=== PATIENT | male | born 1955 | race Hispanic/Latino ===

== ENCOUNTER 2019-05-01 16:20 | Inpatient (IN) | payer MEDICARE ==
[~2019-05-01] VITALS: Ht 177.8 cm; Wt 71.7 kg
--- OUTSIDE RECORDS SUMMARY | 2019-05-01 16:23 | XMS REPORT | Summary of Care ---
Author Author [facility] [place] Address Unknown Phone Unavailable Encounter HQ Encntr_alias(FIN) [id number] Date(s): 02/09/18 - 02/09/18 [facility] [place] [address] [place], [place] [address]- [phone] Discharge Disposition: Home or Self Care Attending Physician: Calderon Dubois MD Vital Signs No data available for this section Problem List No data available for this section Allergies, Adverse Reactions, Alerts No data available for this section Medications No data available for this section Results No data available for this section Immunizations No data available for this section Procedures No data available for this section Social History No data available for this section Assessment and Plan No data available for this section
--- OUTSIDE RECORDS SUMMARY | 2019-05-01 16:23 | XMS REPORT | Clinical Summary ---
Author Author [facility] Address Unknown Phone Unavailable Care Team Providers Care Feather Edger Name Role Phone Vidal Francis MD PCP Allergies Comments Active Allergy Reactions Severity Noted Date Tramadol 08/31/2017 Medications No known medications Active Problems Not on file Encounters Care Team Description Date Type Specialty Brock Dave MD Unilateral primary osteoarthritis, right knee (Primary Dx) 02/14/2019 Transcribe Physical Therapy Orders after 04/30/2018 Social History Date Tobacco Use Types Packs/Day Years Used Former Smoker Smokeless Tobacco: Former User Alcohol Use Drinks/Week oz/Week Comments No Sex Assigned at Date Recorded Not on file Industry Job Start Date Occupation Not on file Not on file Not on file Travel End Travel History Travel Start No recent travel history available. Last Filed Vital Signs Not on file Plan of Treatment Health Maintenance Due Date Last Done Comments COLONOSCOPY SCREENING 2003 SHINGLES VACCINES (#1) 2003 65+ PNEUMOCOCCAL VACCINE 2018 (1 of 2 - PCV13) INFLUENZA VACCINE 04/28/2019 Results Not on fileafter 04/30/2018 Insurance Type Payer Benefit Subscriber ID Effective Phone Address Plan / Dates Group Medicare MEDICARE MEDICARE xxxxxxxxxxx 2017-P [place], PART [place] AND resent [place] B Commercial AARP AARP xxxxxxxxxxx 2018-P SUPPLEMENT resent Advance Directives Patient has advance care planning documents on file. For more information, comfort gutierrez contact: Rigoberto Grijalva [address] [place] [address]
--- OUTSIDE RECORDS SUMMARY | 2019-05-01 16:23 | XMS REPORT | Continuity of Care Document ---
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 Phone [employer] Unavailable Unavailable Problems Problem Status Onset Date Classification Date Reported Comments Source Fracture of unspecified part of neck of left femur, subsequent encounter for closed fracture with nonunion 08/30/2018 01/11/2019 [facility] Unspecified intracapsular fracture of left femur, subsequent encounter for closed fracture with nonunion 05[facility]25[facility] [place] [facility] Active 05/12/2018 [facility] M16.12 Active 05/12/2018 [facility] M16.12 UNILATERAL PRIMARY OSTEOARTHRITIS Active 04/12/2018 [facility] M25.562 - PAIN IN LEFT KNEE Active 02/09/2018 [facility] Pain in unspecified limb 12/05/2018 [facility] Unilateral primary osteoarthritis, left hip 01/11/2019 [facility] Acute posthemorrhagic anemia 01/11/2019 [facility] Atherosclerotic heart disease of [place] coronary artery without angina pectoris 01/11/2019 [facility] Major depressive disorder, single episode, unspecified 01/11/2019 [facility] Presence of coronary angioplasty implant and graft 01/11/2019 [facility] Essential hypertension 01/11/2019 [facility] Polyneuropathy, unspecified 01/11/2019 [facility] Hyperlipidemia, unspecified 01/11/2019 [facility] Localized swelling, mass and lump, left upper limb 01/11/2019 [facility] Stroke Res[facility] [place] [facility] [place] Hypercholesteremia Active Problem [facility] [place] HTN (Confirmed) Active Problem 01/11[facility]2019 [facility] [place] Heart attack Resolved Problem [facility]/11[facility] [place] Se[facility]ure Res[facility] [place] UNILATERAL PRIMARY OSTEOARTHRITIS, LEFT Active [facility] Medications Medication Details Route Status Patient Instructions Ordering Provider Order Date Source 0.4 ML Enoxaparin sodium 100 MG/ML Prefilled Syringe [Lovenox] 40 mg, SUB-Q, Daily, X 7 day, # 7 ea, 0 Refill(s) No Longer Active 06/24/2018 [facility] Acetaminophen 325 MG / Hydrocodone Bitartrate 10 MG Oral Tablet [Mccalla 10/325] 1 tab, PO, Q4H, PRN for pain, # 90 tab, 0 Refill(s), given to patient No Longer Active 06/24/2018 [facility] dexamethasone 4 mg, 1 tab, Route: PO, Drug form: TAB, ONCE, Dosing Weight 73.438, kg, Start date: 06/23/18 18:04:00 CDT, Stop date: 06/23/18 18:04:00 CDTNotes: Give with food. (Same As: Decadron) Inactive 06/23/2018 [facility] normal saline 0.9% IV 250 mL 250 mL, Rate: 30 ml/hr, Infuse over: 8.3 hr, Route: IV, Dosing Weight 67.017 kg, Total Volume: 250, Start date: 06/23/18 10:07:00 CDT, Duration: 30 day, Stop date: 07/23/18 10:06:00 CDT, 1.8, m2 Inactive 06/23/2018 [facility] Vitamin B1 100 mg, 1 tab, Route: PO, Drug form: TAB, Daily, Dosing Weight 67.017, kg, Start date: 06/23/18 9:00:00 CDT, Duration: 30 day, Stop date: 07/22/18 9:00:00 CDTNotes: (Same As: Vitamin B1) No Longer Active 06/23/2018 [facility] Ramipril 2.5 mg, 1 cap, Route: PO, Drug form: CAP, Daily, Dosing Weight 67.017, kg, Start date: 06/23/18 9:00:00 CDT, Duration: 30 day, Stop date: 07/22/18 9:00:00 CDTNotes: (Same as:Altace) No Longer Active 06/23/2018 [facility] Folic Acid 1 mg, 1 tab, Route: PO, Drug form: TAB, Daily, Dosing Weight 67.017, kg, Start date: 06/23/18 9:00:00 CDT, Duration: 30 day, Stop date: 07/22/18 9:00:00 CDTNotes: (Same as: Folvite) No Longer Active 06/23/2018 [facility] Aspirin 81 MG Chewable Tablet 81 mg, 1 tab, Route: CHEW, Drug form: CHEWTAB, Daily, Dosing Weight 67.017, kg, Start date: 06/23/18 9:00:00 CDT, Duration: 30 day, Stop date: 07/22/18 9:00:00 CDTNotes: Take with food. No Longer Active 06/23/2018 [facility] Sodium Chloride 0.9% (Bolus) IV 250 mL, 250 ml/hr, Infuse Over: 1 hr, Route: IV, 250, Drug form: INJ, ONCE, Priority: STAT, Dosing Weight 67.017 kg, Start date: 06/23/18 7:01:00 CDT, Stop date: 06/23/18 7:01:00 CDT Inactive 06/23/2018 [facility] Levothroid 112 microgram, 1 tab, Route: PO, Drug form: TAB, Q6AM, Dosing Weight 67.017, kg, Start date: 06/23/18 6:00:00 CDT, Duration: 30 day, Stop date: 07/22/18 6:00:00 CDTNotes: Take 1 hour before or 2 hours a fter meal; Enteral feeds may interefere with the absorption of this medication.(Same as:Levothroid) No Longer Active 06/23/2018 [facility] zolpidem 5 mg, 1 tab, Route: PO, Drug form: TAB, Bedtime, Dosing Weight 67.017, kg, Start date: 06/22/18 21:00:00 CDT, Duration: 30 day, Stop date: 07/21/18 21:00:00 CDTNotes: (Same As: Ambien) No Longer Active 06/23/2018 [facility] gabapentin 300 MG Oral Capsule 300 mg, 1 cap, Route: PO, Drug form: CAP, Q12H, Dosing Weight 67.017, kg, Start date: 06/22/18 21:00:00 CDT, Duration: 30 day, Stop date: 07/22/18 9:00:00 CDTNotes: (Same as: Neurontin) No Longer Active 06/23/2018 [facility] carvedilol 6.25 mg, 2 tab, Route: PO, Drug form: TAB, Q12H, Dosing Weight 67.017, kg, Start date: 06/22/18 21:00:00 CDT, Duration: 30 day, Stop date: 07/22/18 9:00:00 CDTNotes: Give with food. (Same As: Coreg) No Longer Active 06/23/2018 [facility] Lovenox 40 mg, 0.4 mL, Route: SUB-Q, Drug form: INJ, [id number], Dosing Weight 73.438, kg, Start date: 06/22/18 18:00:00 CDT, Duration: 30 day, Stop date: 07/21/18 18:00:00 CDTNotes: (Same as: Lovenox) No Longer Active 06/22/2018 [facility] tizanidine 8 mg, 2 tab, Route: PO, Drug form: TAB, Q8H, Dosing Weight 67.017, kg, Start date: 06/22/18 16:00:00 CDT, Duration: 30 day, Stop date: 07/22/18 8:00:00 CDTNotes: (Same As: Zanaflex) No Longer Active 06/22/2018 [facility] Docusate Sodium 100 MG Oral Capsule [Colace] 100 mg, 1 cap, Route: PO, Drug form: CAP, BID, Dosing Weight 73.438, kg, Start date: 06/22/18 9:00:00 CDT, Duration: 30 day, Stop date: 07/21/18 17:00:00 CDTNotes: (Same as: Colace) (Do Not Crush) No Longer Active 06/22/2018 [facility] pneumococcal capsular polysaccharide type 1 vaccine / pneumococcal capsular polysaccharide type 10A vaccine / pneumococcal capsular polysaccharide type 11A vaccine / pneumococcal capsular polysaccharide type 12F vaccine / pneumococcal capsular polysacchar 0.5 mL, Route: IM, Drug Form: INJ, ONCALL, Start date: 06/22/18 6:50:04 CDT, Stop date: 07/22/18 6:45:04 CDTNotes: (Same as: Pneumovax 23) Refrigerate No Longer Active 06/22/2018 [facility] Ketorolac 15 mg, 1 mL, Route: IV, Drug form: INJ, Q12H, Dosing Weight 73.438, kg, Start date: 06/21/18 21:00:00 CDT, Duration: 2 day, Stop date: 06/23/18 9:00:00 CDTNotes: (Same as:Toradol) IV bolus must be given >15 seconds. Give IM administration slowly and deeply into the muscle. Not for use > 4 days. No Longer Active 06/22/2018 [facility] Tylenol 325 mg, 1 tab, Route: PO, Drug form: TAB, Q3H, PRN Pain Score 7-10, Start date: 06/21/18 20:23:00 CDT, Duration: 30 day, Stop date: 07/21/18 20:22:00 CDTNotes: Do not exceed 4 gm/day. (Same as: Tylenol) No Longer Active 06/22/2018 [facility] Roxicodone 10 mg, 2 tab, Route: PO, Drug form: TAB, Q3H, PRN Pain Score 7-10, Start date: 06/21/18 20:22:00 CDT, Duration: 30 day, Stop date: 07/21/18 20:21:00 CDTNotes: (Same as: Roxicodone) No Longer Active 06/22/2018 [facility] Dilaudid 1 mg, Route: IVP, ONCE, Dosing Weight 73.438, kg, Priority: STAT, Start date: 06/21/18 18:53:00 CDT, Stop date: 06/21/18 18:53:00 CDT Inactive 06/21/2018 [facility] Naloxone 0.1 mg, Route: SUB-Q, Q6H, Dosing Weight 73.438, kg, PRN Itching, Start date: 06/21/18 18:44:00 CDT, Duration: 30 day, Stop date: 07/21/18 18:43:00 CDT Inactive 06/21/2018 [facility] Meperidine 12.5 mg, Route: IVP, Q30Min, Dosing Weight 73.438, kg, PRN Other -See Comment, For shivering, Start date: 06/21/18 18:44:00 CDT, Duration: 2 doses or times, Stop date: Limited # of times Inactive 06/21/2018 [facility] Promethazine 6.25 mg, Route: IVPB, ONCE, Dosing Weight 73.438, kg, PRN Nausea & Vomiting, Start date: 06/21/18 18:44:00 CDT Inactive 06/21/2018 [facility] Ondansetron 4 mg, Route: IVP, ONCE, Dosing Weight 73.438, kg, PRN Nausea & Vomiting, Start date: 06/21/18 18:44:00 CDT Inactive 06/21/2018 [facility] 72 HR Scopolamine 0.0139 MG/HR Transdermal Patch 1 patch, Route: TOP, Drug Form: ERFILM, Dosing Weight 73.438, kg, ONCE, Apply behind ear. Avoid use in elderly., Start date: 06/21/18 18:44:00 CDT, Stop date: 06/21/18 18:44:00 CDT Inactive 06/21/2018 [facility] Diphenhydramine 12.5 mg, Route: IVP, Drug form: INJ, Q6H, Dosing Weight 73.438, kg, PRN Itching, Start date: 06/21/18 18:44:00 CDT, Duration: 30 day, Stop date: 07/21/18 18:43:00 CDT Inactive 06/21/2018 [facility] Albuterol 0.83 MG/ML Inhalant Solution 2.49 mg, Route: NEB, Q20Min, Dosing Weight 73.438, kg, PRN Wheezing, Priority: STAT, Start date: 06/21/18 18:44:00 CDT, Duration: 30 day, Stop date: 07/21/18 18:43:00 CDT Inactive 06/21/2018 [facility] Flumazenil 0.2 mg, Route: IVP, PRN, Dosing Weight 73.438, kg, PRN Benzodiazepine Reversal, Initial dose, Start date: 06/21/18 18:44:00 CDT, Duration: 30 day, Stop date: 07/21/18 18:43:00 CDT Inactive 06/21/2018 [facility] Fentanyl 50 microgram, Route: IVP, Q5Min, Dosing Weight 73.438, kg, PRN Pain Score 7-10, Priority: Routine, Start date: 06/21/18 18:44:00 CDT, Duration: 2 doses or times, Stop date: Limited # of times Inactive 06/21/2018 [facility] Acetaminophen 1,000 mg, Route: IVPB, Drug form: INJ, ONCE, Dosing Weight 73.438, kg, PRN Pain Score 1-3, Start date: 06/21/18 18:44:00 CDT Inactive 06/21/2018 [facility] Oxycodone 5 mg, Route: NG, Drug form: LIQ, Q4H, Dosing Weight 73.438, kg, PRN Pain Score 4-6, Start date: 06/21/18 18:44:00 CDT, Duration: 30 day, Stop date: 07/21/18 18:43:00 CDT Inactive 06/21/2018 [facility] Hydromorphone 0.5 mg, Route: IVP, Q5Min, Dosing Weight 73.438, kg, PRN Pain Score 7-10, Start date: 06/21/18 18:44:00 CDT, Duration: 4 doses or times, Stop date: Limited # of times Inactive 06/21/2018 [facility] hydromorphone (ANES) Route: IV, Drug form: INJ, ONCE, Stop date: 06/21/18 18:13:00 CDT Inactive 06/21/2018 [facility] neostigmine (ANES) Route: IV, Drug form: INJ, ONCE, Stop date: 06/21/18 18:08:00 CDT Inactive 06/21/2018 [facility] glycopyrrolate (ANES) Route: IV, Drug form: INJ, ONCE, Stop date: 06/21/18 18:08:00 CDT Inactive 06/21/2018 [facility] Zofran 4 mg, 2 mL, Route: IV, Drug form: INJ, Q6H, Dosing Weight 73.438, kg, Start date: 06/21/18 18:00:00 CDT, Duration: 4 doses or times, Stop date: 06/22/18 12:00:00 CDTNotes: (Same as: Zofran) MEDICATION WASTE Product Size: 4 mg Product Wasted: ___ mg No Longer Active 06/21/2018 [facility] Cefazolin 1 gm, Route: IVP, ABXQ6H, Dosing Weight 73.438, kg, Start date: 06/21/18 18:00:00 CDT, Duration: 3 doses or times, Stop date: 06/22/18 6:00:00 CDT, ABX Indication: Surgical ProphylaxisNotes: (Same As: [facility], [place]) MEDICATION WASTE Product Size: 1000 mg Product Wasted: ___ mg No Longer Active 06/21/2018 [facility] Enoxaparin 40 mg, 0.4 mL, Route: SUB-Q, Drug form: INJ, [id number], Dosing Weight 73.438, kg, Start date: 06/21/18 18:00:00 CDT, Duration: 30 day, Stop date: 07/20/18 18:00:00 CDTNotes: (Same as: Lovenox) No Longer Active 06/21/2018 [facility] Acetaminophen 325 MG / Hydrocodone Bitartrate 5 MG Oral Tablet [Mccalla 5/325] 1 tab, Route: PO, Drug Form: TAB, Dosing Weight 73.438, kg, Q3H, PRN Pain Score 1-3, Start date: 06/21/18 17:55:00 CDT, Duration: 30 day, Stop date: 07/21/18 17:54:00 CDTNotes: (Same as: Mccalla 325/5) Do not exceed 4gm/day of acetaminophen. No Longer Active 06/21/2018 [facility] Benadryl 25 mg, 0.5 mL, Route: IVP, Drug form: INJ, Q8H, Dosing Weight 73.438, kg, PRN Itching, Start date: 06/21/18 17:55:00 CDT, Duration: 30 day, Stop date: 07/21/18 17:54:00 CDTNotes: (Same as: Benadryl) No Longer Active 06/21/2018 [facility] Zofran 4 mg, 2 mL, Route: IVP, Drug form: INJ, Q8H, Dosing Weight 73.438, kg, PRN Nausea, Start date: 06/21/18 17:55:00 CDT, Duration: 30 day, Stop date: 07/21/18 17:54:00 CDTNotes: (Same as: Zofran) MEDICATION WASTE Product Size: 4 mg Product Wasted: ___ mg No Longer Active 06/21/2018 [facility] Acetaminophen 325 MG / Hydrocodone Bitartrate 10 MG Oral Tablet [[place] 10/325] 1 tab, Route: PO, Drug Form: TAB, Dosing Weight 73.438, kg, Q3H, PRN Pain Score 4-6, Start date: 06/21/18 17:55:00 CDT, Duration: 30 day, Stop date: 07/21/18 17:54:00 CDTNotes: Do not exceed 4gm/day of acetaminophen. (Same as: M[place]alla 325/10) No Longer Active 06/21/2018 [facility] Dexamethasone 4 mg, 1 tab, Route: PO, Drug form: TAB, ONCE, Dosing Weight 73.438, kg, Start date: 06/21/18 17:55:00 CDT, Stop date: 06/21/18 17:55:00 CDTNotes: Give with food. (Same As: Decadron) No Longer Active 06/21/2018 [facility] Acetaminophen 325 MG / Oxycodone Hydrochloride 10 MG Oral Tablet [Percocet 10/325] 1 tab, Route: PO, Dosing Weight 73.438, kg, Q3H, PRN Pain Score 7-10, Start date: 06/21/18 17:55:00 CDT, Duration: 30 day, Stop date: 07/21/18 17:54:00 CDT Inactive 06/21/2018 [facility] 1/2 NS 1,000 mL 1,000 mL, Rate: 75 ml/hr, Infuse over: 13.3 hr, Route: IV, Dosing Weight 73.438 kg, Total Volume: 1,000, Start date: 06/21/18 17:55:00 CDT, Duration: 30 day, Stop date: 07/21/18 17:54:00 CDT, 1.91, m2 No Longer Active 06/21/2018 [facility] rocuronium (ANES) Route: IV, Drug form: INJ, ONCE, Stop date: 06/21/18 16:38:00 CDT Inactive 06/21/2018 [facility] metoclopramide (ANES) Route: IV, Drug form: INJ, ONCE, Stop date: 06/21/18 16:38:00 CDT Inactive 06/21/2018 [facility] metoprolol (ANES) Route: IV, Drug form: INJ, ONCE, Stop date: 06/21/18 16:38:00 CDT Inactive 06/21/2018 [facility] dexamethasone (ANES) Route: IV, Drug form: INJ, ONCE, Stop date: 06/21/18 16:38:00 CDT Inactive 06/21/2018 [facility] lidocaine (ANES) Route: IV, Drug form: INJ, ONCE, Stop date: 06/21/18 16:33:00 CDT Inactive 06/21/2018 [facility] albumin human (ANES) 25 gm Route: IV, Drug form: INJ, Start date: 06/21/18 16:30:00 CDT, Stop date: 06/21/18 17:30:00 CDT Inactive 06/21/2018 [facility] ceFAZolin (ANES) Route: IV, Drug form: INJ, ONCE, Stop date: 06/21/18 16:23:00 CDT Inactive 06/21/2018 [facility] propofol (ANES) Route: IV, Drug form: INJ, ONCE, Stop date: 06/21/18 16:03:00 CDT Inactive 06/21/2018 [facility] fentaNYL (ANES) Route: IV, Drug form: INJ, ONCE, Stop date: 06/21/18 16:03:00 CDT Inactive 06/21/2018 [facility] midazolam (ANES) Route: IV, Drug form: SOLN, ONCE, Stop date: 06/21/18 15:58:00 CDT Inactive 06/21/2018 [facility] vancomycin (ANES) 1000 mg Route: IV, Drug form: INJ, Start date: 06/21/18 15:53:00 CDT, Stop date: 06/21/18 16:53:00 CDT Inactive 06/21/2018 [facility] Lactated Ringers Injection IV (ANES) 1000 mL Route: IV, Total Volume: 1,000, Start date: 06/21/18 15:24:00 CDT, Stop date: 06/21/18 16:24:00 CDT Inactive 06/21/2018 [facility] Vancomycin 1,000 mg, Route: IVPB, ONCALL, Dosing Weight 73.438, kg, Start date: 06/21/18 12:00:00 CDT, Duration: 1 day, Stop date: 06/22/18 11:59:00 CDT, ABX Indication: Surgical ProphylaxisNotes: TIME CRITICAL MEDICATION (Same As: Vancocin) Infusion rate 2001 mg: infuse over 2.5 hours For adult patients only: Round to nearest 250 mg per Medical Staff approval MEDICATION WASTE Product Size: 1000 mg Product Wasted: ___ mg No Longer Active 06/21/2018 [facility] Tranexamic Acid 1,000 mg, 10 mL, Route: IV, ONCALL, Dosing Weight 73.438, kg, Start date: 06/21/18 12:00:00 CDT, Duration: 30 day, Stop date: 07/21/18 11:59:00 CDTNotes: (Same As: Cyklokapron) No Longer Active 06/21/2018 [facility] Cefazolin 2 gm, Route: IVP, ONCALL, Dosing Weight 73.438, kg, Start date: 06/21/18 12:00:00 CDT, Duration: 30 day, Stop date: 07/21/18 11:59:00 CDT, ABX Indication: Surgical ProphylaxisNotes: (Same As: Noe Sands) MEDICATION WASTE Product Size: 1000 mg Product Wasted: ___ mg No Longer Active 06/21/2018 [facility] Tylenol 1,000 mg, Route: PO, ONCALL, Dosing Weight 73.438, kg, Start date: 06/21/18 12:00:00 CDT, Duration: 30 day, Stop date: 07/21/18 11:59:00 CDT Inactive 06/21/2018 [facility] Oxycontin 10 mg, Route: PO, Drug form: ERTAB, ONCALL, Dosing Weight 73.438, kg, Start date: 06/21/18 12:00:00 CDT, Duration: 30 day, Stop date: 07/21/18 11:59:00 CDT Inactive 06/21/2018 [facility] ropivacaine 100 mL, Route: InFILtration(local), Drug Form: INJ, Dosing Weight 73.438, kg, ONCALL, Start date: 06/21/18 12:00:00 CDT, Duration: 30 day, Stop date: 07/21/18 11:59:00 CDTNotes: NOT FOR IV use Ropivacaine 5 mg/mL (49.25 mL) Epinephrine 1 mg/mL (0.5 mL) Clonidine 0.1 mg/mL (0.8 mL) Ketorolac 30 mg/mL (1 mL) Normal Saline 48.45 mL No Longer Active 06/21/2018 [facility] celecoxib 200 mg, Route: PO, ONCALL, Dosing Weight 73.438, kg, (for CrCl > 90 mL/min), Start date: 06/21/18 12:00:00 CDT, Duration: 30 day, Stop date: 07/21/18 11:59:00 CDT Inactive 06/21/2018 [facility] Calcium Chloride 0.0014 MEQ/ML / Potassium Chloride 0.004 MEQ/ML / Sodium Chloride 0.103 MEQ/ML / Sodium Lactate 0.028 MEQ/ML Injectable Solution 1,000 mL, Rate: 25 ml/hr, Infuse over: 40 hr, Route: IV, Dosing Weight 73.438 kg, Total Volume: 1,000, Start date: 06/21/18 11:18:00 CDT, Duration: 30 day, Stop date: 07/21/18 11:17:00 CDT, 1.91, m2 Inactive 06/21/2018 [facility] Vancomycin 1,000 mg, Route: IVPB, [id number], Dosing Weight 73.438, kg, Time Critical Medication, Start date: 06/21/18 5:00:00 CDT, Duration: 2 doses or times, Stop date: 06/21/18 17:00:00 CDT, Pharmacy to adjust dose for renal function, ABX Indication: Surgical Pr...Notes: TIME CRITICAL MEDICATION (Same As: Vancocin) Infusion rate 2001 mg: infuse over 2.5 hours For adult patients only: Round to nearest 250 mg per Medical Staff approval MEDICATION WASTE Product Size: 1000 mg Product Wasted: ___ mg Inactive 06/21/2018 [facility] ropivacaine 100 mL, Route: InFILtration(local), Drug Form: INJ, Dosing Weight 73.438, kg, ONCALL, Start date: 06/17/18 16:00:00 CDT, Stop date: 06/21/18 15:59:00 CDTNotes: NOT FOR IV use Ropivacaine 5 mg/mL (49.25 mL) Epinephrine 1 mg/mL (0.5 mL) Clonidine 0.1 mg/mL (0.8 mL) Ketorolac 30 mg/mL (1 mL) Normal Saline 48.45 mL No Longer Active 06/17/2018 [facility] Levothroid 112 mcg (0.112 mg) oral tablet 112 microgram=1 tab, PO, Daily, 0 Refill(s) Active 06/10/2018 [facility] tizanidine 4 mg oral capsule 8 mg=2 cap, PO, TID, 0 Refill(s) Active 06/10/2018 [facility] zolpidem 10 mg oral tablet 10 mg=1 tab, PO, Bedtime, 0 Refill(s) Active 06/10/2018 [facility] aripiprazole 10 MG Oral Tablet [Abilify] 10 mg=1 tab, PO, Daily, 0 Refill(s) Active 06/10/2018 [facility] Vitamin B1 100 mg oral tablet 100 mg=1 tab, PO, Daily, 0 Refill(s) Active 06/10/2018 [facility] Folic Acid 1 MG Oral Tablet 1 mg=1 tab, PO, Daily, 0 Refill(s) Active 06/10/2018 [facility] atorvastatin 40 mg oral tablet 40 mg=1 tab, PO, Daily, 0 Refill(s) Active 06/10/2018 [facility] ramipril 2.5 mg oral capsule 2.5 mg=1 cap, PO, Daily, 0 Refill(s) Active 06/10/2018 [facility] venlafaxine 75 mg oral tablet 75 mg=1 tab, PO, BID, 0 Refill(s) Active 06/10/2018 [facility] Aspirin 81 MG Chewable Tablet 81 mg=1 tab, CHEW, Daily, 0 Refill(s) Active 06/10/2018 [facility] clopidogrel 75 mg oral tablet 75 mg=1 tab, PO, Daily, 0 Refill(s) No Longer Active 06/10/2018 [facility] diclofenac sodium 50 mg=1 tab, PO, TID, PRN pain, # 30 tab, 0 Refill(s) Active 06/10/2018 [facility] carvedilol 6.25 mg oral tablet 6.25 mg=1 tab, PO, BID, # 180 tab, 0 Refill(s) Active 06/10/2018 [facility] gabapentin 300 MG Oral Capsule 300 mg=1 cap, PO, BID, # 90 cap, 1 Refill(s) Active 06/10/2018 [facility] Allergies, Adverse Reactions, Alerts Substance Category Reaction Severity Reaction type Status Date Reported Comments Source traMADol Assertion Drug allergy Active [facility] Immunizations No Data Provided for This Section Results Order Name Results Value Reference Range Date Interpretation Comments Source CHEM PANEL BUN 12 7 - 22 06/24/2018 [facility] CHEM PANEL Creatinine Lvl 0.65 0.50 - 1.40 06/24/2018 [facility] CHEM PANEL Glucose Lvl 160 70 - 99 06/24/2018 [facility] CHEM PANEL eGFR 103 06/24/2018 Result Comment: The eGFR is calculated using the CKD-EPI formula. In most young, healthy individuals the eGFR will be >90 mL/min/1.73m2. The eGFR declines with age. An eGFR of 60-89 may be normal in some populations, particularly the elderly, for whom the CKD-EPI formula has not been extensively validated. Use of the eGFR is not recommended in the following populations:

Individuals with unstable creatinine concentrations, including patients and those with serious co-morbid conditions.

Patients with extremes in muscle mass or diet.

The data above are obtained from the National Kidney Disease Education Program (NKDEP) which additionally recommends that when the eGFR is used in patients with extremes of body mass index for purposes of drug dosing, the eGFR should be multiplied by the estimated BMI. [facility] CHEM PANEL AGAP 14.3 10.0 - 20.0 06/24/2018 [facility] CHEM PANEL CO2 25 24 - 32 06/24/2018 [facility] CHEM PANEL Chloride Lvl 102 95 - 109 06/24/2018 [facility] CHEM PANEL Potassium Lvl 4.3 3.5 - 5.1 06/24/2018 [facility] CHEM PANEL Sodium Lvl 137 135 - 145 06/24/2018 [facility] CHEM PANEL Calcium Lvl 8.5 8.5 - 10.5 06/24/2018 [facility] HEMATOLOGY WBC 9.9 3.7 - 10.4 06/24/2018 [facility] HEMATOLOGY RBC 3.32 4.70 - 6.10 06/24/2018 [facility] HEMATOLOGY Hgb 9.3 14.0 - 18.0 06/24/2018 [facility] HEMATOLOGY MPV 7.2 7.4 - 10.4 06/24/2018 [facility] HEMATOLOGY MCV 84.4 80.0 - 94.0 06/24/2018 [facility] HEMATOLOGY Hct 28.0 42.0 - 54.0 06/24/2018 [facility] HEMATOLOGY MCH 28.0 27.0 - 31.0 06/24/2018 [facility] MCHC 33.2 32.0 - 36.0 06/24/2018 [facility] RDW 16.0 11.5 - 14.5 06/24/2018 [facility] Platelet 211 133 - 450 06/24/2018 [facility] Lymphocytes 4.5 20.0 - 40.0 06/24/2018 [facility] Monocytes 3.7 2.0 - 12.0 06/24/2018 [facility] Monocytes # 0.4 0.0 - 0.8 06/24/2018 [facility] Lymphocytes # 0.4 1.0 - 5.5 06/24/2018 [facility] Segs 91.6 45.0 - 75.0 06/24/2018 [facility] Basophils 0.2 0.0 - 1.0 06/24/2018 [facility] Neutrophils # 9.1 1.5 - 8.1 06/24/2018 [facility] BLOOD BANK RESULTS RBC product Product available 1 (06/23/18 4:44 AM) 06/23/2018 Result Comment: 06/23/2018 05:14 [id number]
Notified Corie 06/23/2018 05:14 [facility] CHEM PANEL eGFR 100 06/23/2018 Result Comment: The eGFR is calculated using the CKD-EPI formula. In most young, healthy individuals the eGFR will be >90 mL/min/1.73m2. The eGFR declines with age. An eGFR of 60-89 may be normal in some populations, particularly the elderly, for whom the CKD-EPI formula has not been extensively validated. Use of the eGFR is not recommended in the following populations:

Individuals with unstable creatinine concentrations, including patients and those with serious co-morbid conditions.

Patients with extremes in muscle mass or diet.

The data above are obtained from the National Kidney Disease Education Program (NKDEP) which additionally recommends that when the eGFR is used in patients with extremes of body mass index for purposes of drug dosing, the eGFR should be multiplied by the estimated BMI. [facility] CHEM PANEL Creatinine Lvl 0.70 0.50 - 1.40 06/23/2018 [facility] CHEM PANEL Sodium Lvl 130 135 - 145 06/23/2018 [facility] CHEM PANEL Potassium Lvl 4.4 3.5 - 5.1 06/23/2018 [facility] CHEM PANEL CO2 25 24 - 32 06/23/2018 [facility] CHEM PANEL AGAP 11.4 10.0 - 20.0 06/23/2018 [facility] CHEM PANEL Glucose Lvl 139 70 - 99 06/23/2018 [facility] CHEM PANEL BUN 11 7 - 22 06/23/2018 [facility] CHEM PANEL Calcium Lvl 7.9 8.5 - 10.5 06/23/2018 [facility] CHEM PANEL Chloride Lvl 98 95 - 109 06/23/2018 [facility] HEMATOLOGY MCV 82.1 80.0 - 94.0 06/23/2018 [facility] HEMATOLOGY MCH 27.4 27.0 - 31.0 06/23/2018 [facility] MCHC 33.4 32.0 - 36.0 06/23/2018 [facility] HEMATOLOGY RDW 15.9 11.5 - 14.5 06/23/2018 [facility] MPV 7.3 7.4 - 10.4 06/23/2018 [facility] HEMATOLOGY Platelet 184 133 - 450 06/23/2018 [facility] HEMATOLOGY RBC 2.54 4.70 - 6.10 06/23/2018 [facility] WBC 13.5 3.7 - 10.4 06/23/2018 [facility] Hct 20.8 42.0 - 54.0 06/23/2018 [facility] Hgb 7.0 14.0 - 18.0 06/23/2018 Result Comment: Critical Result(s) called to Pricila strange at 06/23/2018 03:44 by hp. Read back OK. [facility] HEMATOLOGY Monocytes 4.9 2.0 - 12.0 06/23/2018 [facility] HEMATOLOGY Lymphocytes 4.9 20.0 - 40.0 06/23/2018 [facility] HEMATOLOGY Segs 89.8 45.0 - 75.0 06/23/2018 [facility] HEMATOLOGY Neutrophils # 12.2 1.5 - 8.1 06/23/2018 [facility] HEMATOLOGY Basophils 0.4 0.0 - 1.0 06/23/2018 [facility] HEMATOLOGY Lymphocytes # 0.7 1.0 - 5.5 06/23/2018 [facility] HEMATOLOGY Monocytes # 0.7 0.0 - 0.8 06/23/2018 [facility] HEMATOLOGY Basophils # 0.1 0.0 - 0.2 06/23/2018 [facility] CHEM PANEL eGFR 94 06/22/2018 Result Comment: The eGFR is calculated using the CKD-EPI formula. In most young, healthy individuals the eGFR will be >90 mL/min/1.73m2. The eGFR declines with age. An eGFR of 60-89 may be normal in some populations, particularly the elderly, for whom the CKD-EPI formula has not been extensively validated. Use of the eGFR is not recommended in the following populations:

Individuals with unstable creatinine concentrations, including patients and those with serious co-morbid conditions.

Patients with extremes in muscle mass or diet.

The data above are obtained from the National Kidney Disease Education Program (NKDEP) which additionally recommends that when the eGFR is used in patients with extremes of body mass index for purposes of drug dosing, the eGFR should be multiplied by the estimated BMI. [facility] CHEM PANEL Sodium Lvl 139 135 - 145 06/22/2018 [facility] CHEM PANEL BUN 13 7 - 22 06/22/2018 [facility] CHEM PANEL Glucose Lvl 113 70 - 99 06/22/2018 [facility] CHEM PANEL Creatinine Lvl 0.81 0.50 - 1.40 06/22/2018 [facility] CHEM PANEL CO2 24 24 - 32 06/22/2018 [facility] CHEM PANEL Chloride Lvl 102 95 - 109 06/22/2018 [facility] CHEM PANEL Calcium Lvl 8.5 8.5 - 10.5 06/22/2018 [facility] CHEM PANEL Potassium Lvl 3.8 3.5 - 5.1 06/22/2018 [facility] CHEM PANEL AGAP 16.8 10.0 - 20.0 06/22/2018 [facility] Lymphocytes # 1.3 1.0 - 5.5 06/22/2018 [facility] HEMATOLOGY Neutrophils # 19.4 1.5 - 8.1 06/22/2018 [facility] HEMATOLOGY Monocytes # 1.1 0.0 - 0.8 06/22/2018 [facility] HEMATOLOGY Basophils 0.2 0.0 - 1.0 06/22/2018 [facility] HEMATOLOGY Monocytes 5.1 2.0 - 12.0 06/22/2018 [facility] HEMATOLOGY Segs 88.9 45.0 - 75.0 06/22/2018 [facility] Lymphocytes 5.8 20.0 - 40.0 06/22/2018 [facility] RBC 3.29 4.70 - 6.10 06/22/2018 [facility] Hgb 8.7 14.0 - 18.0 06/22/2018 [facility] Hct 26.8 42.0 - 54.0 06/22/2018 [facility] MCV 81.3 80.0 - 94.0 06/22/2018 [facility] MCH 26.5 27.0 - 31.0 06/22/2018 [facility] WBC 21.8 3.7 - 10.4 06/22/2018 [facility] Platelet 278 133 - 450 06/22/2018 [facility] MPV 7.3 7.4 - 10.4 06/22/2018 [facility] MCHC 32.6 32.0 - 36.0 06/22/2018 [facility] RDW 15.7 11.5 - 14.5 06/22/2018 [facility] BLOOD BANK RESULTS Antibody Scrn Negative (06/21/18 12:05 PM) 06/21/2018 [facility] BLOOD BANK RESULTS ABO/Rh O POS 06/21/2018 [facility] BACTERIAL - SEROLOGY MRSA by PCR Negative (06/10/18 8:17 AM) 06/10/2018 [facility] BLOOD BANK RESULTS ABO/Rh O POS 06/10/2018 [facility] BLOOD BANK RESULTS Antibody Scrn Negative (06/10/18 8:17 AM) 06/10/2018 [facility] PT 13.8 12.0 - 14.7 06/10/2018 [facility] PTT 31.9 22.9 - 35.8 06/10/2018 [facility] INR 1.06 0.85 - 1.17 06/10/2018 [facility] Basophils # 0.1 0.0 - 0.2 06/10/2018 [facility] Eosinophils # 0.8 0.0 - 0.5 06/10/2018 [facility] HEMATOLOGY Eosinophils 7.5 0.0 - 4.0 06/10/2018 [facility] URINE AND STOOL UA Urobilinogen <=1.0 mg/dL 0.1 - 1.0 06/10/2018 [facility] URINE AND STOOL UA Color Ltyellow 06/10/2018 [facility] URINE AND STOOL UA Hyal Cast 4 0 - 2 06/10/2018 [facility] URINE AND STOOL UA Sq Epi Occasional /LPF Few /LPF 06/10/2018 [facility] URINE AND STOOL UA Leuk Est Negative (06/10/18 8:17 AM) Negative 06/10/2018 [facility] URINE AND STOOL UA Spec Grav 1.010 <=1.030 06/10/2018 [facility] URINE AND STOOL UA Turbidity Clear (06/10/18 8:17 AM) Clear 06/10/2018 [facility] URINE AND STOOL UA Protein Negative mg/dL Negative mg/dL 06/10/2018 [facility] URINE AND STOOL UA Glucose Negative mg/dL Negative mg/dL 06/10/2018 [facility] URINE AND STOOL UA Nitrite Negative (06/10/18 8:17 AM) Negative 06/10/2018 [facility] URINE AND STOOL UA pH 6.0 5.0 - 8.0 06/10/2018 [facility] URINE AND STOOL UA Bili Negative *NA* (06/10/18 8:17 AM) Negative 06/10/2018 [facility] URINE AND STOOL UA Blood Negative (06/10/18 8:17 AM) Negative 06/10/2018 [facility] URINE AND STOOL UA Ketones Negative mg/dL Negative mg/dL 06/10/2018 [facility] Culture: Anaerobic No Anaerobes Isolated 04/19/2018 [facility] Gram Stain Report No Wbc'S Or Organisms Seen 04/19/2018 [facility] Culture: Aspirate/Body Fluid/Tissue No Growth 04/19/2018 [facility] C Synov w/GS No Growth 04/19/2018 [facility] Propionibacterium acnes Propionibacterium acnes 04/19/2018 [facility] Pathology Reports No Data Provided for This Section Diagnostic Reports Report Value Date Source Ext Upper Venous Doppler Unilat US LEFT UPPER EXTREMITY VENOUS DUPLEX ULTRASOUND CLINICAL INDICATION: - Catheter associated phlebitis and antecubital fossa TECHNIQUE: Grayscale and color venous Doppler ultrasound of the left upper extremity was performed. COMPARISON: None FINDINGS: The deep venous structures are completely compressible, reveal augmentation, spontaneous and phasic flow. There is no superficial venous thrombus. There is soft tissue edema within the left upper arm but no organized fluid collection demonstrated. IMPRESSION: 1. There is no deep or superficial venous thrombosis detected. 2. There is left upper arm soft tissue edema but no organized fluid collection demonstrated. VIJAY: AGNES 06/22/2018 [facility] Pelvis AP DX Exam: Pelvis AP DX Clinical Indication: Arthritis - Assess Implant Position. Comparison: 06/21/2018 at 1706 hours FINDINGS: AP view of the pelvis was obtained. Postsurgical changes of left hip total arthroplasty. Hardware components are well seated. Prosthetic femoral head is concentrically located. No appreciable periprosthetic fracture. Mild degenerative changes are present at the right hip. Chain suture material projects over the left lower quadrant. If there is further concern, recommend follow-up radiographs or bone scan for complete assessment. IMPRESSION: Postoperative left hip arthroplasty without evidence of complication SL: ECROBERT 06/21/2018 [facility] Pelvis AP DX EXAM: Pelvis HISTORY: Left hip replacement COMPARISON: 03/16/2018 TECHNIQUE: Intraoperative frontal view pelvis FINDINGS: Left hip arthroplasty in satisfactory alignment. SL: TVU-PC 06/21/2018 [facility] Chest 2 views DX Clinical Indication: Coughing - Pre-Op. Comparison: None. TECHNIQUE: PA and lateral chest radiographs were performed. (2 views) FINDINGS: LUNGS: Normal lung volumes. No interstitial or airspace opacities. No pleural effusions or pneumothorax. HEART AND MEDIASTINUM: The heart size is normal. The pulmonary vasculature is normal. There is a mildly tortuous thoracic aorta. The trachea is midline. OSSEOUS STRUCTURES: Small degenerative osteophytes and mild degenerative disk disease changes are seen in the mid thoracic spine. IMPRESSION: 1. No acute cardiopulmonary disease. SL: [id number] 06/10/2018 [facility] Hip wo contrast CT EXAM: CT LEFT HIP WITHOUT CONTRAST DATE: 05/18/2018 1:42 PM CDT INDICATION: - M79.609 Pain in unspecified limb COMPARISON: Left hip CT 03/23/2018. TECHNIQUE: Volumetric CT of the hip is acquired without contrast. Axial, coronal and sagittal images are provided. IV contrast: None. DLP: 201.24 mGy-cm. FINDINGS: Pelvis/Acetabulum: No significant change in the dysplastic appearance and bony remodeling of the acetabulum. Again identified is small heterotopic ossification adjacent to the superior acetabulum margin. No new heterotopic ossification is identified. Femur: No substantial change in appearance of the chronic nonunited fragmented femoral head fracture with bony remodeling. Small bone fragments again seen within the joint space. Soft tissues: Redemonstration of mild heterotopic ossification about the hip, not simply changed from prior exam. There is stable synovial thickening. Unchanged moderate wasting of the and left hip musculature. IMPRESSION: 1. No significant interval change in fragmentation and bony remodeling of left femoral head fracture and dysplastic acetabulum. 2. Chronic synovitis. 3. Stable mild heterotopic ossification. 05/18/2018 [facility] Arthrocentesis / Aspiration hip VR Patient Name: OSWALDO CONTRERAS : 1955; Age: 62 years y/o Male MR: [id number] PROCEDURE: CT-guided left hip arthrocentesis. PHYSICIAN PROVIDING SERVICE: Bryon Andrews M.D. HISTORY: Abnormal left hip with apparent destruction and fragmentation of the left femoral head and neck, possibly related to prior fracture. The patient was referred for aspiration of the joint. CONSENT: The procedure, risks, benefits and alternatives were discussed with the patient and written informed consent was obtained. IMAGING STUDIES REVIEWED: Computed tomography scan of the left hip from 03/23/2017, radiographs of the left hip from 03/16/2018. TECHNIQUE: Preliminary CT images were obtained through the left lower pelvis and upper thighs. The abnormal left femoral head and neck and adjacent soft tissue density adjacent to left hip were identified. was localized. A suitable anterior location for aspiration of the left hip was chosen by CT. A generous portion of the anterior region of the left hip was prepped with ChloraPrep and draped. The biopsy needle entry site was anesthetized with 1% lidocaine. A 17-gauge guide needle was carefully into the soft tissue or fluid density adjacent to the left hip of the lesion utilizing CT guidance. Aspiration was performed. 2016 *05/21 (70% 6. Only a minimal amount of bloody material could be obtained. There is no large fluid collection aspirated. The amount of fluid was only left sent for cultures and not for other studies. The fluid was grossly noninfected. The patient tolerated the procedure well and suffered no immediate complications. CT imaging performed at this location utilizes radiation dose optimization techniques which include one or more of the following: -Automated exposure control. -Adjustment of the mA and/or kV according to patient size. -Use of iterative reconstruction technique. CT radiation dose DLP: 706 mGy-cm IMPRESSION: CT-guided left arthrocentesis. 2 adjacent areas of the abnormal left hip were aspirated yielding only a minimal amount of bloody fluid. There is only enough fluid to sent for cultures. SL: [id number] 04/19/2018 [facility] wo contrast CT Study: Left hip wo contrast CT Clinical Indication: M16.12 - OSTEOARTHRITIS Comparison: Plain films of the left hip from 03/16/2018 TECHNIQUE: Multiple axial CT images of the left hip were acquired without the administration of intravenous contrast. Multiplanar reformatted images were performed. WQA=723.22 mGy-cm FINDINGS: Chronic appearing, ununited, comminuted fracture of the femoral head and neck is seen with inferomedial displacement of several femoral head fracture fragments. Scattered chronic appearing osseous erosions of the residual femoral neck are seen. Multiple additional chronic appearing osseous erosions with remodeling and thinning of the bone stock along the acetabulum are seen. The acetabulum is shallow and dysplastic in appearance. Curvilinear mineralization adjacent to the superior acetabular rim is seen. Extensive synovitis throughout the left hip joint is noted. IMPRESSION: 1. Chronic appearing, comminuted fracture of the femoral head and neck with inferomedial displacement of the femoral head fracture fragments. 2. Extensive synovitis throughout the left hip joint with scattered chronic appearing erosions of the residual femoral neck as well as throughout the acetabulum with remodeling and thinning of the bone stock of the acetabulum. Please correlate for underlying inflammatory arthropathy. SL: [id number] 03/23/2018 [facility] Hip 2/3 views uni w pelvis DX Patient Name: OSWALDO CONTRERAS DOB: 1955; Age: 62 years y/o Male MR: [id number] * LEFT HIP (2 views) with frontal PELVIS History: Left hip pain. Technique: Frontal neutral and frog-leg images of the left hip and a frontal radiograph of the pelvis were obtained. Images were obtained with weightbearing. IMPRESSION: 1. There are findings consistent with an old femoral neck fracture with chronic nonunion and osteolysis. The upper portion of the left femoral neck is absent. There is a residual shaped portion of the left femoral head in place. There is essentially a Girdlestone hip. 2. There are erosive changes and deformity involving the superior acetabulum. 3. There is no evidence of an acute fracture. 4. The pelvic ring is intact. 5. There are no aggressive appearing destructive lesions. SL: [id number] 03/16/2018 [facility] Knee 4+ views bilat DX Patient Name: OSWALDO CONTRERAS DOB: 1955; Age: 62 years y/o Male MR: [id number] Study: Knee 4+ views bilat DX 02/09/2018 2:23 PM CDT Ordering Physician: Clinical Indication: M25.561, M25.562 - KNEE PAIN; Comparison: None 4 views both knees Severe degenerative changes of both knees. Marked joint space narrowing within the medial compartments bilaterally. This is more prominent in the right knee, with near [id number] appearance, with subarticular sclerosis and cyst formation. There is no other bony fracture, subluxation or lesion evident. No large joint effusion is seen. IMPRESSION: Severe bilateral knee joint osteoarthritis, most marked within the medial compartment of the right knee. SL: [id number] 02/09/2018 [facility] Consultation Notes No Data Provided for This Section Discharge Summaries No Data Provided for This Section History and Physicals No Data Provided for This Section Vital Signs Vital Sign Value Date Comments Source Heart Rate 71 06/24/2018 [facility] Systolic (mm Hg) 108 06/24/2018 [facility] Diastolic (mm Hg) 65 06/24/2018 [facility] Heart Rate 73 06/24/2018 [facility] Temperature Oral (F) 98.6 F 06/24/2018 [facility] Respitory Rate 16 06/24/2018 [facility] Systolic (mm Hg) 135 06/24/2018 [facility] Diastolic (mm Hg) 69 06/24/2018 [facility] Systolic (mm Hg) 120 06/24/2018 [facility] Diastolic (mm Hg) 63 06/24/2018 [facility] Temperature Oral (F) 98.1 F 06/24/2018 [facility] Respitory Rate 15 06/24/2018 [facility] Heart Rate 61 06/24/2018 [facility] Temperature Oral (F) 98.2 F 06/24/2018 [facility] Respitory Rate 16 06/24/2018 [facility] Weight 67.017 06/22/2018 [facility] BMI Calculated 22.46 06/22/2018 [facility] Height 172.72 cm 06/22/2018 [facility] Weight 73.438 06/10/2018 [facility] BMI Calculated 23.23 06/10/2018 [facility] Height 177.8 cm 06/10/2018 [facility] Height 180.34 cm 04/19/2018 [facility] BMI Calculated 21.1 04/19/2018 [facility] Weight 68.636 04/19/2018 [facility] Encounters Location Location Details Encounter Type Encounter Number Reason For Visit Attending Provider ADM Date DC Date Status Source [facility] [place] [facility] [id number] Calderon Dubois 02/09/2018 02/10/2018 [facility] Faulk[facility] [place] [facility] [id number] Calderon Dubois 03/16/2018 [facility] [place] [facility] [id number] Calderon Dubois 03/23/2018 03/24/2018 [facility] Out[facility] [id number] Vj Lira 04/19/2018 04/20/2018 [facility] [place] [facility] [id number] Vj Lira 05/18/2018 05/19/2018 [facility] Inpatient [id number] Vj Lira 06/21/2018 06/24/2018 [facility] Procedures Procedure Code Date Perfomer Comments Source Laparotomy [id number] 04/10/2015 [facility] Laparotomy [id number] 04/10/2015 [facility] Stent placement [id number] 04/01/2015 [facility] Stent placement [id number] 04/01/2015 [facility] Assessment and Plan Assessment and Plan Date Source Extracted from:Title: Clinical Document Author: Radhames Mendieta MD Date: 06/24/18 Hospitalist Progress Note [facility] Radhames Mendieta MD SUBJECTIVE: Patient seen and examined, events reviewed Denies much pain at this time OBJECTIVE: Vitals and Temp: Vitals Tmp(F) Pulse BP RR SpO2 FIO2 06/24 12:02 ---- 71 108/65 -- --- --- 06/24 07:18 98.6 73 135/69 16 97 --- 06/24 04:22 98.1 61 120/63 15 99 --- 06/23 23:06 98.2 76 135/71 16 99 --- 06/23 20:01 97.9 74 104/61 15 98 --- 24 Hr Tmax: 98.6F (37.00c) at 06/24 07:18 Vital Signs are the last 5 in the past 48 hours. Input/Output Record In Out Bal 06/24 24hr Tot 0 0 0 06/23 24hr Tot 1380 2150 -770 Labs (Last four charted values) WBC 9.9 (JUN 24) H 13.5 (JUN 23) H 21.8 (JUN 22) H 27.7 (JUN 21) Hgb L 9.3 (JUN 24) C 7.0 (JUN 23) L 8.7 (JUN 22) L 10.6 (JUN 21) Hct L 28.0 (JUN 24) L 20.8 (JUN 23) L 26.8 (JUN 22) L 32.9 (JUN 21) Plt 211 (JUN 24) 184 (JUN 23) 278 (JUN 22) 349 (JUN 21) Na 137 (JUN 24) L 130 (JUN 23) 139 (JUN 22) L 132 (JUN 10) K 4.3 (JUN 24) 4.4 (JUN 23) 3.8 (JUN 22) 4.5 (JUN 10) CO2 25 (JUN 24) 25 (JUN 23) 24 (JUN 22) 30 (JUN 10) Cl 102 (JUN 24) 98 (JUN 23) 102 (JUN 22) L 93 (JUN 10) Cr 0.65 (JUN 24) 0.70 (JUN 23) 0.81 (JUN 22) 1.06 (JUN 10) BUN 12 (JUN 24) 11 (JUN 23) 13 (JUN 22) 14 (JUN 10) Glucose Random H 160 (JUN 24) H 139 (JUN 23) H 113 (JUN 22) H 111 (JUN 10) Ca 8.5 (JUN 24) L 7.9 (JUN 23) 8.5 (JUN 22) 9.7 (JUN 10) PT 13.8 (JUN 10) INR 1.06 (JUN 10) PTT 31.9 (JUN 10) MEDICATIONS Scheduled Meds (11):aspirin (aspirin 81 mg tablet, chewable), carvedilol, docusate (Colace 100 mg oral capsule), enoxaparin (Lovenox), folic acid, gabapentin (gabapentin 300 mg oral capsule), levothyroxine (Levothroid), ramipril, thiamine (Vitamin B1), tizanidine, zolpidem Unscheduled Meds (5):ceFAZolin + sterile water 20 mL, pneumococcal 23-valent vaccine, ropivacaine (JOSELINE Pericapsular INJ), tranexamic acid + Sodium Chloride 0.9% IV 100 mL, vancomycin + Dextrose 5% in Water IV 250 mL PRN Meds (6):acetaminophen-hydrocodone (Mccalla 10/325 oral tablet), acetaminophen-hydrocodone (M[place]alla 5/325 oral tablet), acetaminophen (Tylenol), diphenhydrAMINE (Benadryl), ondansetron (Zofran), oxyCODONE (Roxicodone) One Time Meds (2):(Completed) Sodium Chloride 0.9% IV (Sodium Chloride 0.9% (Bolus) IV), (Deleted) dexamethasone Continuous Infusions (1):Sodium Chloride 0.45% IV 1,000 mL (1/2 NS 1,000 mL) ASSESSMENT and EXAM: GENERAL: In no apparent distress at this time. HEENT: EOMI. NECK: Supple. No jugular venous distention or bruits. CARDIOVASCULAR: Regular rate and rhythm, S1, S2 positive. LUNGS: Clear to auscultation bilateral. GASTROINTESTINAL: Soft, nontender, nondistended, positive bowel sounds. EXTREMITIES: No clubbing, cyanosis or edema. NEUROLOGICAL: Intact. No gross deficits noted. SKIN: no rashes noted. DIAGNOSES and PROBLEMS: Left MIREILLE, postop day #2 Anemia of acute blood loss Coronary artery disease status post stent Hypertension Left antecubital fossa swelling and redness PLAN and TREATMENT: H&H improved appropriately post transfusion Patient states that pain is improved We will plan discharge home today Appreciate orthopedics follow-up Discussed with family at bedside All questions answered Further recommendations will be based on this patient's clinical course Extracted from:Title: Clinical Document Author: Vj Lira MD Date: 06/24/18 Admit Date: 06/21/2018 Discharge Date: 06/24/2018 Reason for Hospitalization: s/p Left MIREILLE Patient was admitted to the floor s/p above procedure. Pt tolerated the surgery well and vital signs were stable in the post operative period. Pt recieved 24 hr abx prohlyaxis, DVT prophlaxis was started within 23 hrs of surgery, and was cleared for d/c home by PT on POD# 3. Pt's Hg was 7.0 on POD# 2 and required transfusion of 2 units pRBC. Discharge Dx: Left hip osteoarthritis s/p Left MIREILLE Left femur neck fracture nonunion Coronary arthery disease Acute Blood Loss Anemia Discharge Instructions RLE: Toe Touch Weight Bearing posterior hip precautions f/u Dr. Vj Lira on 07/14/2018 Discharge Medications Lovenox 40 mg SubQ Q24hr for 10 days post-op Mccalla 10/325 1-2 tab PO Q4-6Hr PRN Pain Resume Plavix after lovenox completed Continue all home medcations Contact [facility] if: Fever > 101.5 Increasing pain Redness along incision purulent drainage Extracted from:Title: Clinical Document Author: Radhames Mendieta MD Date: 06/22/18 Hospitalist Consultation [facility] Radhames Mendieta MD SUBJECTIVE: Patient seen and examined, events reviewed HISTORY OF PRESENT ILLNESS: Mr. Contreras is a very pleasant 62-year-old male who presents on the behest of his orthopedic surgeon secondary to severe left hip osteoarthritis. He has been having issues with his arthritis which have been flaring up worse over the past several months. He went to see an orthopedist and did try some conservative therapy before he was referred to Dr. Lira for surgery. He underwent a left total hip arthroplasty yesterday and we were asked to evaluate for medical management. He currently does complain of some pain in his hip but he states that the pain medications do help. REVIEW OF SYSTEMS: He denies any headaches or dizziness at this time. He denies any fevers or chills. He denies any nausea or vomiting. He denies any neck pain or stiffness. He denies any chest pain or pressure or palpitations. He denies any shortness of breath. He denies any abdominal pain or any changes in his bowel or bladder habits. He denies any rashes or any focal motor or sensory deficits. He denies any depression or anxiety, and all other systems have been reviewed and are negative except as listed. PAST MEDICAL HISTORY: Coronary artery disease status post CO and stent placement Hypertension Peripheral neuropathy Osteoarthritis Hyperlipidemia Severe C. difficile colitis status post colostomy with reversal Knee arthroscopy Tramadol induced seizures MEDICATIONS: Please see nursing medical reconciliation form. ALLERGIES: Tramadol - causes seizures FAMILY HISTORY: Diabetes mellitus type 2 Hypertension Liver disease Arthritis SOCIAL HISTORY: Denies any tobacco, excessive alcohol or any illicit drug abuse. OBJECTIVE: Vitals and Temp: Vitals Tmp(F) Pulse BP RR SpO2 FIO2 06/22 04:04 98.2 103 152/69 16 94 --- 06/22 00:00 98.2 92 146/58 16 92 --- 06/21 21:44 ---- --- ----- 18 100 21% 06/21 21:22 ---- 85 146/64 14 --- --- 06/21 20:53 ---- 90 137/67 14 --- --- 24 Hr Tmax: 98.9F (37.17c) at 06/21 11:40 Vital Signs are the last 5 in the past 48 hours. Input/Output Record In Out Bal 06/21 24hr Tot 1139 1250 -111 06/20 24hr Tot 0 0 0 Labs (Last four charted values) WBC H 21.8 (JUN 22) H 27.7 (JUN 21) 9.0 (JUN 21) 10.3 (JUN 10) Hgb L 8.7 (JUN 22) L 10.6 (JUN 21) L 12.3 (JUN 21) L 12.5 (JUN 10) Hct L 26.8 (JUN 22) L 32.9 (JUN 21) L 37.0 (JUN 21) L 38.2 (JUN 10) Plt 278 (JUN 22) 349 (JUN 21) 302 (JUN 21) 365 (JUN 10) Na L 132 (JUN 10) K 4.5 (JUN 10) CO2 30 (JUN 10) Cl L 93 (JUN 10) Cr 1.06 (JUN 10) BUN 14 (JUN 10) Glucose Random H 111 (JUN 10) Ca 9.7 (JUN 10) PT 13.8 (JUN 10) INR 1.06 (JUN 10) PTT 31.9 (JUN 10) MEDICATIONS Scheduled Meds (4):docusate (Colace 100 mg oral capsule), enoxaparin, ketOROLAC, ondansetron (Zofran) Unscheduled Meds (5):ceFAZolin + sterile water 20 mL, pneumococcal 23-valent vaccine, ropivacaine (JOSELINE Pericapsular INJ), tranexamic acid + Sodium Chloride 0.9% IV 100 mL, vancomycin + Dextrose 5% in Water IV 250 mL PRN Meds (7):acetaminophen-hydrocodone ([place] 10/325 oral tablet), acetaminophen-hydrocodone ([place] 5/325 oral tablet), acetaminophen (Tylenol), diphenhydrAMINE (Benadryl), ondansetron (Zofran), ondansetron (Zofran), oxyCODONE (Roxicodone) One Time Meds (17):(Completed) ceFAZolin (ceFAZolin (ANES)), (Ordered) dexamethasone, (Ordered) dexamethasone, (Ordered) dexamethasone, (Completed) dexamethasone (dexamethasone (ANES)), (Completed) fentaNYL (fentaNYL (ANES)), (Completed) glycopyrrolate (glycopyrrolate (ANES)), (Completed) hydromorphone (hydromorphone (ANES)), (Completed) hydromorphone (Dilaudid), (Completed) lidocaine (lidocaine (ANES)), (Completed) metoclopramide (metoclopramide (ANES)), (Completed) metoprolol (metoprolol (ANES)), (Completed) midazolam (midazolam (ANES)), (Completed) neostigmine (neostigmine (ANES)), (Completed) pr opofol (propofol (ANES)), (Completed) rocuronium (rocuronium (ANES)), (Discontinued) scopolamine (ANES scopolamine 1.5 mg transdermal film) Continuous Infusions (1):Sodium Chloride 0.45% IV 1,000 mL (1/2 NS 1,000 mL) ASSESSMENT and EXAM: GENERAL: In no apparent distress at this time. HEENT: Normocephalic, atraumatic. Pupils equal and reactive to light. NECK: Supple. No jugular venous distention or bruits. CARDIOVASCULAR: Regular rate and rhythm, S1, S2 positive, no murmurs, rubs or gallops. LUNGS: Clear to auscultation bilateral. No rales, rhonchi or wheezes. GASTROINTESTINAL: Soft, nontender, nondistended, positive bowel sounds, no organomegaly. EXTREMITIES: No clubbing, cyanosis or edema. Left antecubital fossa erythema and swelling associated with IV line. NEUROLOGICAL: Intact. No gross deficits noted. SKIN: no rashes noted. DIAGNOSES and PROBLEMS: Left MIREILLE, postop day #1 Anemia of acute blood loss Coronary artery disease status post stent Hypertension Left antecubital fossa swelling and redness PLAN and TREATMENT: Continue postoperative management per orthopedics We will continue management of medical disease We will renew home medications Adjust medications as needed Follow-up on H&H We will transfuse if needed DVT prophylaxis SCIP protocol antibiotics Increase activity with PT/OT as tolerated Rule out phlebitis and check ultrasound of left antecubital fossa Further recommendations will be based on this patient's clinical course Thank you Dr. Lira for allowing me to participate in the care of your patient. I will follow him closely here with you at [facility] and address any other medical needs if they should arise. Extracted from:Title: Clinical Document Author: Vj Lira MD Date: 06/21/18 MIREILLE Op Dication Date: 06/21/2018 Location: [facility] main OR Attending: Vj Lira MD Pre-op dx: LEft hip osteoarthritis, Left femur neck fracture nonunion Post-op dx: above Procedure: Left total hip arthroplasty, complex 22 modifier Anesthesiologist : Dr. Juanjose Vázquez Anesthesia: Leather Tanner: Nj Boggs EBL: 250 cc UOP: no calderon IVF: see anesthesia note Transfusion: none required Implants: [place] Instrumentation Femur Stem: Size 9, SSF+, 13 mm distal diameter Femur Head: -5 mm, biolox delta, 36 mm Acetabulum Cup: 60 mm, Trident2, Revision mulit-hole cup Acetabulum Liner: 36 mm, neutral, xlink 4 Acetabular screws Clinical Indications: Patient is a 62 yo male with a diagnosis of hip osteoarthritis status post an extensive conservative medical management program including physical therapy with a home exercise program, anti-inflammatories, and attempted weight loss. Patient has exhausted all non-operative management options but has persistent pain and disability from the arthritis. X-rays demonstrate end stage joint space narrowing with bone on bone articulation involving the femoral acetabular joint. patient also deomstrated fragmentation of the femur head consistent with old nonunion of femur neck fracture. Intraoperative evaluation showed complete destruction of the cartilage surfaces in the femoral and acetabular surfaces. Patient understands the risks, benefits, rational, and rehabilitation process inherent with a total hip arthroplasty. Patient expressed understanding that risks include but not limited to bleeding, pain, infection, damage to nearby structures: vessels, tendons, nerves and ligaments. Possibility of hardware failure, loosening, fracture, leg length discrepancy, dislocation, and need for revision surgery. The patient also understands the risks of blood clots in the legs and lungs, stroke, heart-attack, and in the porsche-operative period. The patient agreed and gave consent to surgery as indicated. Patient also understands the risks of transfusion including possible transmission of a communicable disease and transfusion reaction. Patient understood these risks and gave consent for transfusion as indicated. Procedure Note: Positioning: Patient brought into the OR and placed supine on the OR table. After successful anesthetic was applied, a calderon was placed. The patient was then placed in the lateral decubitus position with Left hip up. The operative extremity was prepped and draped free in the standard fashion. A surgical time out was completed confirming the surgical site, identity, procedure and confirmation of IV antibiotic infusion. Approach: A lateral incision was centered over the greater trochanter with a 10 blade scalpel and dissection was taken to the gluteal fascia. The fascia was incised with cautery and zurita scissors and the charnley retractor was placed. The piriformis tendon was identified, tagged, and released off its insertion of the grater trochanter. A T shaped arthrotomy was created in the posterior capsule included the short external rotators in a continuous sleeve. The hip was dislocated with flexion and internal rotation. The neck osteotomy was revised at the level of the piriformis fossa and the residual nonunion head was removed with a clamp from the socket. The femur was retracted anteriorly after releasing the anterior and inferior capsule. The labrum and pulvinar was resected allowing visualization of the acetabulum. Patient had eveloped a false acetabulum and a very shallow acetabulum due to the non weight bearing parameters and erosion of the socket. Extra time was taken to disect inferiorly to isolate the true acetablum from a superior defect. Acetabulum: We began reaming in a medial fashion with a 44 mm reamer until we touched down on the cotyloid fossa. We then increased reaming in 1 or 2 mm increments reapproximating the patients natural anteversion and abduction. We found that by over reaming we could include the superior defect and utilize a revision multi hole cup and avoid utilizing augments. We then impacted the definitive implant in approximate 40-45 deg abduction and 20-30 deg anteversion. Four acetabular screws were placed for additional fixation given the extensive reaming process. Femur: We then approached the proximal femur by releasing the anterior femur and resecting residual soft tissue from the interior of the greater trochanter. We then resected the lateral femoral neck cortex, identified the intramedullary canal with starting reamer, and removed the residual cortex with the trochanteric reamer. The distal shaft was then widened with increasing straight reamers in 0.5 mm increments until we achieved cortical chatter. The proximal femur was then broached with increasing sizes until we achieved a press fit. We reapproximated the patients natural femoral anteversion and steadily applied lateral pressure. The calcar planer then revised the femur neck cut. Trialing/Balancing/X-ray: An AP pelvis xray confirmed accurate postioning of the acetabular and femoral components. Residual leg length descrepancy with a -5 head and 6 degree lateralized liner demonstrated a long extremity. The construct was trialed with a -5 head. The hip was stable in the sleeping position. It was able to achieve 45 degrees of internal rotation with the hip flexed to 90 degrees and resting adduction. There was no posterior impingement with terminal extension and external rotation. We then implanted a neutral non lateralized liner to reduce the leg length descrepancy. retrialed the stem with a -5 head and found it stable to the above parameters. Implantation: The femoral broach was removed, canal was irrigated, then impacted the definitive femur stem. We examined the calcar and found there was no fracture. The definitive femur head was implanted. The construct was retrialed with final components and found to be stable to above parameters. Closure: We irrigated the entire operative field with 2 liter normal saline fluid. The posterior capsule was repaired. The piriformis tendon was reapproximated to the gluteus medius at its insertion on the greater trochanter. The gluteal fascia was then closed All deep sutures were #1 ethibonds. Scarpas fascia was closed with O-vicryls. Skin was closed with inverted subcutaneous 2-O vicryls and a running 4-O monocryl. The wound was dressed with dermabond, adaptic, telfa, and tape. Laminar flow exhaust suits were worn for the entire procedure. A surgical warehouse administrative assistant was required for the entire procedure. The warehouse administrative assistant was required for positioning, retraction, implant sizing/implantation, and closure. The assist decreased surgical time and therfore porsche-operative morbidity. 22- modifier justification Patient had a dysplastic and deformed acetabulum. Additional dissection, exposure, retraction was required to characterize the anatomy. Revision components were required to reconstruct the acetabulum as described above. This lead to increased blood loss, surgical time, and porsche-operative morbidit and mortality. For these reasons patien is coded with an additional complexity code. Post-op Dispo: Patient will be admitted to the floor, receive 24 hours of intravenous antibiotics, and DVT prophylaxis. The patient toe touch weight bearing for 6 weeks with posterior hip precautions. Extracted from:Title: Clinical Document Author: Vj Lira MD Date: 06/20/18 CC: Left hip pain HISTORY OF PRESENT ILLNESS: 62 yo male being seen regarding persistent left hip pain with 10/10 severity hip pain with radiation to the knee. Aggravated by weightbearing, range of motion, going up and down stairs, limitation of daily living, prolonged ambulation. The patient's previous treatments include anti- inflammatory management. The patient under previous evaluation diagnosed with femoral neck nonunion as well as underlying left hip osteoarthritis. PAST MEDICAL HISTORY: Significant for depression, tramadol-related seizures, arthritis, coronary artery disease, status post stent, hypertension, pneumonia, and stroke. PAST SURGICAL HISTORY: Colon resection, knee arthroscopy and cardiac stent. ALLERGIES: ADVERSE REACTIONS TO TRAMADOL. NO KNOWN DRUG ALLERGIES. CURRENT MEDICATIONS: Unable to specify secondary to did not bring with them. SOCIAL HISTORY: The patient denies smoking, alcohol or drug use. FAMILY HISTORY: Positive for diabetes, hypertension, liver disease, and arthritis. REVIEW OF SYSTEMS: My 12-system review of systems questionnaire was completed and reviewed by myself. Systems evaluated include general, skin, HEENT, psychiatric, pulmonary, genitourinary, gastrointestinal, musculoskeletal, lymphatics, endocrine, cardiovascular, and neurologic. Pertinent positive for musculoskeletal. Please see HPI for further details PHYSICAL EXAMINATION: GENERAL: The patient demonstrates normal body habitus, in no acute distress. PSYCHIATRIC: Alert and oriented x3. Demonstrates proper mood and affect. ABDOMEN: Soft, nontender, and nondistended. EYES: Sclerae are normal. SKIN: No evidence of soft tissue swelling, ecchymosis, or bruising. CARDIOVASCULAR: 1+ DP pulses bilaterally. NEUROLOGIC: Intact bilateral hips, quads, hamstrings, TA, EHL, and GS. Light touch is intact in L2 through S1 dermatomal distributions. 1+ DTRs bilaterally. EXTREMITY: The patient's left knee demonstrates severe pain on passive range of motion, knee range of motion is 0 to 90 degrees, 15 internal and 15 external rotation. Positive Stinchfield, positive logroll, and antalgic gait utilizing a crutch. X-RAYS: Upright AP pelvis of the left hip demonstrates osteoarthritic changes as well as nonunion of the left femur neck fracture evidence of consolidation and callus formation. CT scan of the left hip also demonstrates left hip nonunion with underlying osteoarthritic changes. ASSESSMENT: The patient has left femur neck fracture nonunion as well as left hip osteoarthritis, ICD-10 code is M16.12, S72.012K as well as left hip pain ICD-10 code is M25.552. PLAN: At this point, the patient will benefit from total hip arthroplasty at this time. The patient has already maximized conservative management. The patient has a nonunion and would best be treated with joint replacement given underlying arthritis. The patient has history of cardiac stent not a candidate for tranexamic acid. The patient has a history of seizures and not a candidate for tramadol. Lovenox for DVT prophylaxis. The patient is being managed by Dr. Azar for pain management. Obtain a CT scan to further characterize acetabulum for surgical planning. Ancef, vancomycin for antibiotic prophylaxis. Risks and benefits discussed at length with the patient, risks of surgery, bleeding, pain, infection, damage to nearby structures, vessel, tendons, nerves, possible need for further surgery, possibility of blood clots in legs or lungs, stroke, heart attack, and . 06/24/2018 [facility] Plan of Care No Data Provided for This Section Social History Social History Date Source Social History TypeResponse Smoking Status Former smoker; Type: Cigarettes; Exposure to Tobacco Smoke None; Cigarette Smoking Last 365 Days No; Reg Smoking Cessation Counseling No; Other Tobacco Frequency Pt. quit in 1998.; entered on: 06/21/18 06/21/2018 [facility] Social History TypeResponse Smoking Status Former smoker; Type: Cigarettes; Exposure to Tobacco Smoke None; Cigarette Smoking Last 365 Days No; Reg Smoking Cessation Counseling No; Other Tobacco Frequency Pt. quit in 1998.; entered on: 06/21/18 06/21/2018 [facility] [place] No data available for this section 03/24/2018 [facility] [place] Family History No Data Provided for This Section Advance Directives No Data Provided for This Section Functional Status No Data Provided for This Section
--- OUTSIDE RECORDS SUMMARY | 2019-05-01 16:24 | XMS REPORT | Summary of Care ---
Author Author [facility] Organization [facility] Address Unknown Phone Unavailable Encounter HQ Maria Guadalupe(FIN) [id number] Date(s): 04/19/18 - 04/19/18 [facility] [address] [place] [address]- Encounter Diagnosis Unilateral primary osteoarthritis, left hip (Final) - 04/28/18 Discharge Disposition: Home or Self Care Attending Physician: Vj Lira MD Referring Physician: Vj Lira MD Vital Signs Most recent to 1 oldest [Reference Range]: Height 180.34 cm (04/19/18 12:49 PM) Weight 68.636 kg (04/19/18 12:49 PM) Body Mass Index 21.1 m2 (04/19/18 12:49 PM) Problem List Condition Effective Dates Status Health Status Informant Stroke(Confirmed) Resolved Thyroid Active disease(Confirmed) Hypercholesteremia(C Active onfirmed) HTN Active (hypertension)(Confi rmed) Heart Resolved attack(Confirmed) Seizure(Confirmed) Resolved Allergies, Adverse Reactions, Alerts Substance Reaction Severity Status traMADol Active Medications No data available for this section Results Microbiology Reports TEST: Culture: Anaerobic STATUS: Auth (Verified) BODY SITE: Left Hip SOURCE: Aspirate COLLECTED DATE/TIME: 04/19/18 1:00 PM FINAL REPORT No Anaerobes Isolated TEST: Culture: Aspirate/Body Fluid/Tissue STATUS: Auth (Verified) BODY SITE: Left Hip SOURCE: Aspirate COLLECTED DATE/TIME: 04/19/18 1:00 PM FINAL REPORT No Growth STAIN REPORT No Wbc'S Or Organisms Seen ORGANISM:Propionibacterium acnes TEST: C Synov w/GS STATUS: Auth (Verified) BODY SITE: Left Hip SOURCE: Aspirate COLLECTED DATE/TIME: 04/19/18 1:00 PM FINAL REPORT No Growth Immunizations No data available for this section Procedures Procedure Date Related Diagnosis Body Site Status Laparotomy 04/10/15 Completed Stent placement 04/01/15 Completed Social History Social History Type Response Smoking Status Former smoker; Type: Cigarettes; Exposure to Tobacco Smoke None; Cigarette Smoking Last 365 Days No; Reg Smoking Cessation Counseling No; Other Tobacco Frequency Pt. quit in 1998.; entered on: 06/21/18 Assessment and Plan No data available for this section
--- OUTSIDE RECORDS SUMMARY | 2019-05-01 16:24 | XMS REPORT | Summary of Care ---
Author Author [facility] Outpatient Imaging [facility] Outpatient [facility] Address Unknown Phone Unavailable Encounter HQ Encntr_alias(FIN) [id number] Date(s): 03/23/18 - 03/23/18 [facility] Outpatient Imaging [place] [address] [place], [place] [address]- [phone] Discharge Disposition: Home or Self Care Attending [...]
--- OUTSIDE RECORDS SUMMARY | 2019-05-01 16:24 | XMS REPORT | Summary of Care ---
Author Author [facility] Outpatient Imaging [facility] Outpatient Imaging [facility] Address Unknown Phone Unavailable Encounter HQ Maria Guadalupe(FIN) [id number] Date(s): 05/18/18 - 05/18/18 [facility] Imaging [facility] [address] [facility], [address] [place] [address] [phone] Encounter Diagnosis Unspecified intracapsular fracture of left femur, subsequent encounter for close d fracture with nonunion (Final) - 05/24/18 Pain in unspecified limb (Final) - Discharge Disposition: Home or Self Care Attending Physician: Vj Lira MD Referring Physician: Vj Lira MD Vital Signs No data available for this section Problem List Condition Effective Dates Status Health [...]
--- OUTSIDE RECORDS SUMMARY | 2019-05-01 16:24 | XMS REPORT | Summary of Care ---
Author Author [facility] Organization [facility] Address Unknown Phone Unavailable Encounter HQ Dianne_malathi(FIN) [id number] Date(s): 04/19/18 - 04/19/[address] [facility] [address] [place] [address]- [phone] Discharge Disposition: Home or Self Care Attending Physician: Vj Lira MD Referring Physician: Vj Lira MD Vital Signs Most recent to 1 oldest [Reference Range]: Height 180.34 cm (04/19/18 12:49 PM) Weight 68.636 kg (04/19/18 12:49 PM) Body Mass Index 21.1 m2 (04/19/18 12:49 PM) Problem List No data available for this section Allergies, Adverse Reactions, Alerts Substance Reaction Severity Status traMADol Active Medications No data available for this section Results Microbiology Reports TEST: Culture: Anaerobic STATUS: Order in Progress BODY SITE: Left Hip SOURCE: Aspirate COLLECTED DATE/TIME: 04/19/18 1:00 PM PRELIMINARY REPORT Culture In Progress TEST: Culture: Aspirate/Body Fluid/Tissue STATUS: Order in Progress BODY SITE: Left Hip SOURCE: Aspirate COLLECTED DATE/TIME: 04/19/18 1:00 PM PRELIMINARY REPORT No Growth; Holding STAIN REPORT No Wbc'S Or Organisms Seen TEST: C Synov w/GS STATUS: Order in Progress BODY SITE: Left Hip SOURCE: Aspirate COLLECTED DATE/TIME: 04/19/18 1:00 PM PRELIMINARY REPORT No Growth; Holding Immunizations No data available for this section Procedures No data available for this section Social History No data available for this section Assessment and Plan No data available for this section
--- OUTSIDE RECORDS SUMMARY | 2019-05-01 16:24 | XMS REPORT | Summary of Care ---
Author Author Roddy Bangurata Organization Unknown Address [facility] Phone Unavailable Care Team Providers [employer] Developer Name Role Phone Vivienne Bangura Unavailable Unavailable SAROJ CASAREZ N.P. Unavailable Unavailable OSWALDO CASEY MD Unavailable Unavailable LISA ESCUDERO [place], CLAY León Unavailable Unavailable Unavailable Unavailable Functional Status Name Dates Details Functional status health issues are not documented Status: Name Dates Details Cognitive status health issues are not documented Status: Problems Name Dates Details Essential (primary) hypertension (401.9, I10) Status: Active Hyperlipidemia (272.4, E78.5) Status: Active Pain in joint of right shoulder (719.41, M25.511) Status: Active Limb pain (729.5, M79.609) Status: Active Degenerative joint disease (DJD) of hip (715.95, M16.9) Status: Active Closed subcapital fracture of neck of left femur, with nonunion, subsequent encounter (733.82, S72.012K) Status: Active Acute hip pain, left (719.45, M25.552) Status: Active Arthritis of left hip (716.95, M16.12) Status: Active Medications Name Dates Details Simvastatin 20 MG Oral Tablet TAKE 1 TABLET DAILY. Active Ambien 10 MG Oral Tablet TAKE 1 TABLET DAILY AT BEDTIME. * Refills: 0 Active Lisinopril-hydroCHLOROthiazide 20-12.5 MG Oral Tablet TAKE 1 TABLET DAILY. * Refills: 0 Active LORazepam 0.5 MG Oral Tablet TAKE 1 TABLET 3 TIMES DAILY NEEDED. * Refills: 0 Active Venlafaxine HCl ER 75 MG Oral Tablet Extended Release 24 Hour TAKE 1 TABLET DAILY * Refills: 0 Active Lidoderm 5 % External Patch USE DIRECTED ON PACKAGE * Refills: 0 Active MethylPREDNISolone (Owen) 4 MG TABS TAKE DIRECTED. * Quantity: 1 Refills: 0 SAROJ CASAREZ N.P. * Start : 07-Dec-2014 Active Cyclobenzaprine HCl - 10 MG Oral Tablet TAKE 1 TABLET AT BEDTIME. * Quantity: 14 Refills: 0 CASAREZ N.P., SAROJ * Start : 07-Dec-2014 Active traMADol-Acetaminophen 37.5-325 MG Oral Tablet TAKE 1 TABLET 3 TIMES DAILY as needed * Quantity: 30 Refills: 0 CASAREZ N.P., SAROJ * Start : 07-Dec-2014 Active Voltaren 1 % Transdermal Gel APPLY TO UPPER EXTREMITIES, 2 GM OF GEL TO AFFECTED AREA 4 TIMES DAILY. DO NOT APPLY MORE THAN 8 GM DAILY TO ANY ONE AFFECTED JOINT. * Quantity: 1 Refills: 0 CASAREZ N.P., SAROJ * Start : 25-Feb-2014 Active 100 GM Tube (3 Tubes) Allergies and Adverse Reactions Name Dates Details traMADol HCl TABS (Allergy) Status: Active Procedures Procedure Dates Details History of Knee Surgery Completed Immunization Name Dates Details Immunizations not documented Family History Name Dates Details Family history of Diabetes Mellitus (V18.0) Status: Active Name Dates Details Family history of diabetes mellitus (V18.0, Z83.3) Status: Active Social History Name Dates Details - Status: Name Dates Details Former smoker Vital Signs Date Test Result Details No Known Vitals to report Results Date Description Value Details Results not documented Plan of Care Name Dates Details Planned Observations Planned Goals not documented Instructions Name Dates Details Instructions not documented Encounters Appointment; CLAY GONZALEZ M.D. Encounter Diagnosis: Problem not documented On: 07-Apr-2018 13:30 Appointment; CLAY GONZALEZ M.D. Encounter Diagnosis: Problem not documented On: 12-May-2018 13:15 Appointment; CLAY GONZALEZ M.D. Encounter Diagnosis: Problem not documented On: 16-Jun-2018 13:30 Appointment; CLAY GONZALEZ M.D. Encounter Diagnosis: Problem not documented On: 21-Jun-2018 9:00 Appointment; CLAY GONZALEZ M.D. Encounter Diagnosis: Problem not documented On: 14-Jul-2018 14:15 Appointment; CLAY GONZALEZ M.D. Encounter Diagnosis: Problem not documented On: 04-Aug-2018 14:30 Appointment; CLAY GONZALEZ M.D. Encounter Diagnosis: Problem not documented On: 25-Aug-2018 14:30 Appointment; CLAY GONZALEZ M.D. Encounter Diagnosis: Problem not documented On: 15-Sep-2018 14:00 Appointment; CLAY GONZALEZ M.D. Encounter Diagnosis: Problem not documented On: 06-Oct-2018 14:15
--- OUTSIDE RECORDS SUMMARY | 2019-05-01 16:24 | XMS REPORT | Summary of Care ---
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 (Final) - 08/29/18 Acute posthemorrhagic anemia (Final) - Unilateral primary osteoarthritis, left hip (Final) - Atherosclerotic heart disease of [place] coronary artery without angina pectoris (Final) - Major depressive disorder, single episode, unspecified (Final) - Presence of coronary angioplasty implant and graft (Final) - Essential (primary) hypertension (Final) - Polyneuropathy, unspecified (Final) - Hyperlipidemia, unspecified (Final) - Localized swelling, mass and lump, left upper limb (Final) - Discharge Disposition: Home Care with Home Health Attending Physician: Vj Lira MD Admitting Physician: Vj Lira MD Referring Physician: Vj Lira MD Vital Signs 1 2 3 Most recent to oldest [Reference Range]: 172.72 cm (06/21/18 8:12 PM) 177.8 cm (06/10/18 7:57 AM) Height 98.6 DegF (06/24/18 7:18 AM) 98.1 DegF (06/24/18 4:22 AM) 98.2 DegF (06/23/18 11:06 PM) Temperature Oral [96.4-99.1 DegF] 108/65 mmHg (06/24/18 12:02 PM) 135/69 mmHg (06/24/18 7:18 AM) 120/63 mmHg (06/24/18 4:22 AM) Blood Pressure [90-140/60-90 mmHg] 16 BRMIN (06/24/18 7:18 AM) 15 BRMIN (06/24/18 4:22 AM) 16 BRMIN (06/23/18 11:06 PM) Respiratory Rate [14-20 BRMIN] 71 bpm (06/24/18 12:02 PM) 73 bpm (06/24/18 7:18 AM) 61 bpm (06/24/18 4:22 AM) Peripheral Pulse Rate [60-100 bpm] 67.017 kg (06/21/18 8:12 PM) 73.438 kg (06/10/18 7:57 AM) Weight 22.46 m2 (06/21/18 8:12 PM) 23.23 m2 (06/10/18 7:57 AM) Body Mass Index Problem List Condition Effective Dates Status Health Status Informant Stroke(Confirmed) Resolved Thyroid Active disease(Confirmed) Hypercholesteremia(C Active onfirmed) HTN Active (hypertension)(Confi rmed) Heart Resolved attack(Confirmed) Seizure(Confirmed) Resolved Allergies, Adverse Reactions, Alerts Substance Reaction Severity Status traMADol Active Medications 1/2 NS 1,000 mL 1,000 mL, Rate: 75 ml/hr, Infuse over: 13.3 hr, Route: IV, Dosing Weight 73.438 kg, Total Volume: 1,000, Start date: 06/21/18 17:55:00 CDT, Duration: 30 day, St op date: 07/21/18 17:54:00 CDT, 1.91, m2 Start Date: 06/21/18 Stop Date: 06/24/18 Status: Discontinued Abilify 10 mg oral tablet 10 mg=1 tab, PO, Daily, 0 Refill(s) Start Date: 06/10/18 Status: Ordered albumin human (ANES) 25 gm Route: IV, Drug form: INJ, Start date: 06/21/18 16:30:00 CDT, Stop date: 8 17:30:00 CDT Start Date: 06/21/18 Stop Date: 06/21/18 Status: Completed ANES acetaminophen 1,000 mg, Route: IVPB, Drug form: INJ, ONCE, Dosing Weight 73.438, kg, PRN Pain Score 1-3, Start date: 06/21/18 18:44:00 CDT Start Date: 06/21/18 Stop Date: 06/21/18 Status: Discontinued ANES albuterol 0.083% inhalation solution 2.49 mg, Route: NEB, Q20Min, Dosing Weight 73.438, kg, PRN Wheezing, Priority: S TAT, Start date: 06/21/18 18:44:00 CDT, Duration: 30 day, Stop date: 07/21/18 18 :43:00 CDT Start Date: 06/21/18 Stop Date: 06/21/18 Status: Discontinued ANES diphenhydrAMINE 12.5 mg, Route: IVP, Drug form: INJ, Q6H, Dosing Weight 73.438, kg, PRN Itching, Start date: 06/21/18 18:44:00 CDT, Duration: 30 day, Stop date: 07/21/18 18:43: 00 CDT Start Date: 06/21/18 Stop Date: 06/21/18 Status: Discontinued ANES fentaNYL 50 microgram, Route: IVP, Q5Min, Dosing Weight 73.438, kg, PRN Pain Score 7-10, Priority: Routine, Start date: 06/21/18 18:44:00 CDT, Duration: 2 doses or times , Stop date: Limited # of times Start Date: 06/21/18 Stop Date: 06/21/18 Status: Discontinued ANES fentaNYL 25 microgram, Route: IVP, Q5Min, Dosing Weight 73.438, kg, PRN Pain Score 4-6, P riority: Routine, Start date: 06/21/18 18:44:00 CDT, Duration: 4 doses or times, Stop date: Limited # of times Start Date: 06/21/18 Stop Date: 06/21/18 Status: Discontinued ANES flumazenil 0.2 mg, Route: IVP, PRN, Dosing Weight 73.438, kg, PRN Benzodiazepine Reversal, Initial dose, Start date: 06/21/18 18:44:00 CDT, Duration: 30 day, Stop date: 18:43:00 CDT Start Date: 06/21/18 Stop Date: 06/21/18 Status: Discontinued ANES HYDROmorphone 0.5 mg, Route: IVP, Q5Min, Dosing Weight 73.438, kg, PRN Pain Score 7-10, Start date: 06/21/18 18:44:00 CDT, Duration: 4 doses or times, Stop date: Limited # of times Start Date: 06/21/18 Stop Date: 06/21/18 Status: Discontinued ANES meperidine 12.5 mg, Route: IVP, Q30Min, Dosing Weight 73.438, kg, PRN Other -See Comment, F or shivering, Start date: 06/21/18 18:44:00 CDT, Duration: 2 doses or times, Sto p date: Limited # of times Start Date: 06/21/18 Stop Date: 06/21/18 Status: Discontinued ANES naloxone 0.1 mg, Route: SUB-Q, Q6H, Dosing Weight 73.438, kg, PRN Itching, Start date: 18:44:00 CDT, Duration: 30 day, Stop date: 07/21/18 18:43:00 CDT Start Date: 06/21/18 Stop Date: 06/21/18 Status: Discontinued ANES naloxone 0.4 mg, Route: IVP, Q2MIN, Dosing Weight 73.438, kg, PRN Narcotic Reversal, Star t date: 06/21/18 18:44:00 CDT, Duration: 8 doses or times, Stop date: Limited # of times Start Date: 06/21/18 Stop Date: 06/21/18 Status: Discontinued ANES ondansetron 4 mg, Route: IVP, ONCE, Dosing Weight 73.438, kg, PRN Nausea & Vomiting, Start date: 06/21/18 18:44:00 CDT Start Date: 06/21/18 Stop Date: 06/21/18 Status: Discontinued ANES oxyCODONE 5 mg, Route: NG, Drug form: LIQ, Q4H, Dosing Weight 73.438, kg, PRN Pain Score 4 -6, Start date: 06/21/18 18:44:00 CDT, Duration: 30 day, Stop date: 07/21/18 18: 43:00 CDT Start Date: 06/21/18 Stop Date: 06/21/18 Status: Discontinued ANES oxyCODONE 5 mg, Route: PO, Drug form: TAB, Q4H, Dosing Weight 73.438, kg, PRN Pain Score 4 -6, Start date: 06/21/18 18:44:00 CDT, Duration: 30 day, Stop date: 07/21/18 18: 43:00 CDT Start Date: 06/21/18 Stop Date: 06/21/18 Status: Discontinued ANES oxyCODONE 10 mg, Route: NG, Drug form: LIQ, Q4H, Dosing Weight 73.438, kg, PRN Pain Score 7-10, Start date: 06/21/18 18:44:00 CDT, Duration: 30 day, Stop date: 07/21/18 1 8:43:00 CDT Start Date: 06/21/18 Stop Date: 06/21/18 Status: Discontinued ANES oxyCODONE 10 mg, Route: PO, Drug form: TAB, Q4H, Dosing Weight 73.438, kg, PRN Pain Score 7-10, Start date: 06/21/18 18:44:00 CDT, Duration: 30 day, Stop date: 07/21/18 1 8:43:00 CDT Start Date: 06/21/18 Stop Date: 06/21/18 Status: Discontinued ANES promethazine 6.25 mg, Route: IVPB, ONCE, Dosing Weight 73.438, kg, PRN Nausea & Vomiting, Start date: 06/21/18 18:44:00 CDT Start Date: 06/21/18 Stop Date: 06/21/18 Status: Discontinued ANES scopolamine 1.5 mg transdermal film 1 patch, Route: TOP, Drug Form: ERFILM, Dosing Weight 73.438, kg, ONCE, Apply be hind ear. Avoid use in elderly., Start date: 06/21/18 18:44:00 CDT, Stop date: 06/21/18 18:44:00 CDT Start Date: 06/21/18 Stop Date: 06/21/18 Status: Discontinued aspirin 81 mg tablet, chewable 81 mg=1 tab, CHEW, Daily, 0 Refill(s) Start Date: 06/10/18 Status: Ordered aspirin 81 mg tablet, chewable 81 mg, 1 tab, Route: CHEW, Drug form: CHEWTAB, Daily, Dosing Weight 67.017, kg, Start date: 06/23/18 9:00:00 CDT, Duration: 30 day, Stop date: 07/22/18 9:00:00 CDT Notes: Take with food. Start Date: 06/23/18 Stop Date: 06/24/18 Status: Discontinued atorvastatin 40 mg oral tablet 40 mg=1 tab, PO, Daily, 0 Refill(s) Start Date: 06/10/18 Status: Ordered Benadryl 25 mg, 0.5 mL, Route: IVP, Drug form: INJ, Q8H, Dosing Weight 73.438, kg, PRN It valerie, Start date: 06/21/18 17:55:00 CDT, Duration: 30 day, Stop date: 07/21/18 17:54:00 CDT Notes: (Same as: Benadryl) Start Date: 06/21/18 Stop Date: 06/24/18 Status: Discontinued carvedilol 6.25 mg, 2 tab, Route: PO, Drug form: TAB, Q12H, Dosing Weight 67.017, kg, Start date: 06/22/18 21:00:00 CDT, Duration: 30 day, Stop date: 07/22/18 9:00:00 CDT Notes: Give with food. (Same As: Coreg) Start Date: 06/22/18 Stop Date: 06/24/18 Status: Discontinued carvedilol 6.25 mg oral tablet 6.25 mg=1 tab, PO, BID, # 180 tab, 0 Refill(s) Start Date: 06/10/18 Status: Ordered ceFAZolin (ANES) Route: IV, Drug form: INJ, ONCE, Stop date: 06/21/18 16:23:00 CDT Start Date: 06/21/18 Stop Date: 06/21/18 Status: Completed ceFAZolin (SCIP) + sterile water 10 mL 1 gm, Route: IVP, [id number], Dosing Weight 73.438, kg, Start date: 06/21/18 18:00:0 0 CDT, Duration: 3 doses or times, Stop date: 06/22/18 6:00:00 CDT, ABX Indicati on: Surgical Prophylaxis Notes: (Same As: Omar Sands) MEDICATION WASTE Product Size: 1000 mgP roduct Wasted: ___ mg Start Date: 06/21/18 Stop Date: 06/22/18 Status: Completed ceFAZolin + sterile water 20 mL 2 gm, Route: IVP, ONCALL, Dosing Weight 73.438, kg, Start date: 06/21/18 12:00:0 0 CDT, Duration: 30 day, Stop date: 07/21/18 11:59:00 CDT, ABX Indication: Surgi gadiel Prophylaxis Notes: (Same As: Omar Sands) MEDICATION WASTE Product Size: 1000 mgP roduct Wasted: ___ mg Start Date: 06/21/18 Stop Date: 06/24/18 Status: Discontinued celecoxib 200 mg, Route: PO, ONCALL, Dosing Weight 73.438, kg, (for CrCl > 90 mL/min), Start date: 06/21/18 12:00:00 CDT, Duration: 30 day, Stop date: 07/21/18 11:59:00 CDT Start Date: 06/21/18 Stop Date: 06/21/18 Status: Completed clopidogrel 75 mg oral tablet 75 mg=1 tab, PO, Daily, 0 Refill(s) Start Date: 06/10/18 Stop Date: 06/24/18 Status: Discontinued Colace 100 mg oral capsule 100 mg, 1 cap, Route: PO, Drug form: CAP, BID, Dosing Weight 73.438, kg, Start d ate: 06/22/18 9:00:00 CDT, Duration: 30 day, Stop date: 07/21/18 17:00:00 CDT Notes: (Same as: Colace) (Do Not Crush) Start Date: 06/22/18 Stop Date: 06/24/18 Status: Discontinued dexamethasone 4 mg, 1 tab, Route: PO, Drug form: TAB, ONCE, Dosing Weight 73.438, kg, Start da te: 06/21/18 17:55:00 CDT, Stop date: 06/21/18 17:55:00 CDT Notes: Give with food.(Same As: Decadron) Start Date: 06/21/18 Stop Date: 06/23/18 Status: Completed dexamethasone 4 mg, 1 mL, Route: IV, Drug form: INJ, ONCE, Dosing Weight 73.438, kg, Start rody e: 06/21/18 17:55:00 CDT, Stop date: 06/21/18 17:55:00 CDT Notes: Concentration: 4mg/ml Start Date: 06/21/18 Stop Date: 06/22/18 Status: Completed dexamethasone 2 mg, 0.5 tab, Route: PO, Drug form: TAB, ONCE, Dosing Weight 73.438, kg, Start date: 06/21/18 17:55:00 CDT, Stop date: 06/21/18 17:55:00 CDT Notes: Give with food.(Same As: Decadron) Start Date: 06/21/18 Stop Date: 06/24/18 Status: Completed dexamethasone 4 mg, 1 tab, Route: PO, Drug form: TAB, ONCE, Dosing Weight 73.438, kg, Start da te: 06/23/18 18:04:00 CDT, Stop date: 06/23/18 18:04:00 CDT Notes: Give with food.(Same As: Decadron) Start Date: 06/23/18 Stop Date: 06/23/18 Status: Deleted dexamethasone (ANES) Route: IV, Drug form: INJ, ONCE, Stop date: 06/21/18 16:38:00 CDT Start Date: 06/21/18 Stop Date: 06/21/18 Status: Completed diclofenac sodium 50 mg=1 tab, PO, TID, PRN pain, # 30 tab, 0 Refill(s) Start Date: 06/10/18 Status: Ordered Dilaudid 1 mg, Route: IVP, ONCE, Dosing Weight 73.438, kg, Priority: STAT, Start date: 18:53:00 CDT, Stop date: 06/21/18 18:53:00 CDT Start Date: 06/21/18 Stop Date: 06/21/18 Status: Completed enoxaparin 40 mg, 0.4 mL, Route: SUB-Q, Drug form: INJ, [id number], Dosing Weight 73.438, kg, Start date: 06/21/18 18:00:00 CDT, Duration: 30 day, Stop date: 07/20/18 18:00: 00 CDT Notes: (Same as: Lovenox) Start Date: 06/21/18 Stop Date: 06/22/18 Status: Discontinued fentaNYL (ANES) Route: IV, Drug form: INJ, ONCE, Stop date: 06/21/18 16:03:00 CDT Start Date: 06/21/18 Stop Date: 06/21/18 Status: Completed folic acid 1 mg, 1 tab, Route: PO, Drug form: TAB, Daily, Dosing Weight 67.017, kg, Start d ate: 06/23/18 9:00:00 CDT, Duration: 30 day, Stop date: 07/22/18 9:00:00 CDT Notes: (Same as: Folvite) Start Date: 06/23/18 Stop Date: 06/24/18 Status: Discontinued folic acid 1 mg oral tablet 1 mg=1 tab, PO, Daily, 0 Refill(s) Start Date: 06/10/18 Status: Ordered gabapentin 300 mg oral capsule 300 mg, 1 cap, Route: PO, Drug form: CAP, Q12H, Dosing Weight 67.017, kg, Start date: 06/22/18 21:00:00 CDT, Duration: 30 day, Stop date: 07/22/18 9:00:00 CDT Notes: (Same as: Neurontin) Start Date: 06/22/18 Stop Date: 06/24/18 Status: Discontinued gabapentin 300 mg oral capsule 300 mg=1 cap, PO, BID, # 90 cap, 1 Refill(s) Start Date: 06/10/18 Status: Ordered glycopyrrolate (ANES) Route: IV, Drug form: INJ, ONCE, Stop date: 06/21/18 18:08:00 CDT Start Date: 06/21/18 Stop Date: 06/21/18 Status: Completed hydromorphone (ANES) Route: IV, Drug form: INJ, ONCE, Stop date: 06/21/18 18:13:00 CDT Start Date: 06/21/18 Stop Date: 06/21/18 Status: Completed ketOROLAC 15 mg, 1 mL, Route: IV, Drug form: INJ, Q12H, Dosing Weight 73.438, kg, Start da te: 06/21/18 21:00:00 CDT, Duration: 2 day, Stop date: 06/23/18 9:00:00 CDT Notes: (Same as:Toradol) IV bolus must be given >15 seconds. Give IM administration slowly and deeply into the muscle. Not for use > 4 days. Start Date: 06/21/18 Stop Date: 06/23/18 Status: Completed Lactated Ringers Injection IV (ANES) 1000 mL Route: IV, Total Volume: 1,000, Start date: 06/21/18 15:24:00 CDT, Stop date: 16:24:00 CDT Start Date: 06/21/18 Stop Date: 06/21/18 Status: Completed Lactated Ringers Injection IV 1000 mL 1,000 mL, Rate: 25 ml/hr, Infuse over: 40 hr, Route: IV, Dosing Weight 73.438 kg , Total Volume: 1,000, Start date: 06/21/18 11:18:00 CDT, Duration: 30 day, Stop date: 07/21/18 11:17:00 CDT, 1.91, m2 Start Date: 06/21/18 Stop Date: 06/21/18 Status: Discontinued Levothroid 112 microgram, 1 tab, Route: PO, Drug form: TAB, Q6AM, Dosing Weight 67.017, kg, Start date: 06/23/18 6:00:00 CDT, Duration: 30 day, Stop date: 07/22/18 6:00:00 CDT Notes: Take 1 hour before or 2 hours after meal; Enteral feeds may interefere wi th the absorption of this medication.(Same as:Levothroid) Start Date: 06/23/18 Stop Date: 06/24/18 Status: Discontinued Levothroid 112 mcg (0.112 mg) oral tablet 112 microgram=1 tab, PO, Daily, 0 Refill(s) Start Date: 06/10/18 Status: Ordered lidocaine (ANES) Route: IV, Drug form: INJ, ONCE, Stop date: 06/21/18 16:33:00 CDT Start Date: 06/21/18 Stop Date: 06/21/18 Status: Completed Lovenox 40 mg, 0.4 mL, Route: SUB-Q, Drug form: INJ, [id number], Dosing Weight 73.438, kg, Start date: 06/22/18 18:00:00 CDT, Duration: 30 day, Stop date: 07/21/18 18:00: 00 CDT Notes: (Same as: Lovenox) Start Date: 06/22/18 Stop Date: 06/24/18 Status: Discontinued Lovenox 40 mg/0.4 mL subcutaneous solution 40 mg, SUB-Q, Daily, X 7 day, # 7 ea, 0 Refill(s) Start Date: 06/24/18 Stop Date: 07/01/18 Status: Completed metoclopramide (ANES) Route: IV, Drug form: INJ, ONCE, Stop date: 06/21/18 16:38:00 CDT Start Date: 06/21/18 Stop Date: 06/21/18 Status: Completed metoprolol (ANES) Route: IV, Drug form: INJ, ONCE, Stop date: 06/21/18 16:38:00 CDT Start Date: 06/21/18 Stop Date: 06/21/18 Status: Completed midazolam (ANES) Route: IV, Drug form: SOLN, ONCE, Stop date: 06/21/18 15:58:00 CDT Start Date: 06/21/18 Stop Date: 06/21/18 Status: Completed neostigmine (ANES) Route: IV, Drug form: INJ, ONCE, Stop date: 06/21/18 18:08:00 CDT Start Date: 06/21/18 Stop Date: 06/21/18 Status: Completed [place] 10/325 oral tablet 1 tab, PO, Q4H, PRN for pain, # 90 tab, 0 Refill(s), given to patient Start Date: 06/24/18 Stop Date: 06/25/18 Status: Completed [place] 10/325 oral tablet 1 tab, Route: PO, Drug Form: TAB, Dosing Weight 73.438, kg, Q3H, PRN Pain Score 4-6, Start date: 06/21/18 17:55:00 CDT, Duration: 30 day, Stop date: 07/21/18 17 :54:00 CDT Notes: Do not exceed 4gm/day of acetaminophen. (Same as: [place] 325/10) Start Date: 06/21/18 Stop Date: 06/24/18 Status: Discontinued [place] 5/325 oral tablet 1 tab, Route: PO, Drug Form: TAB, Dosing Weight 73.438, kg, Q3H, PRN Pain Score 1-3, Start date: 06/21/18 17:55:00 CDT, Duration: 30 day, Stop date: 07/21/18 17 :54:00 CDT Notes: (Same as: [place] 325/5) Do not exceed 4gm/day of acetaminophen. Start Date: 06/21/18 Stop Date: 06/24/18 Status: Discontinued normal saline 0.9% IV 250 mL 250 mL, Rate: 30 ml/hr, Infuse over: 8.3 hr, Route: IV, Dosing Weight 67.017 kg, Total Volume: 250, Start date: 06/23/18 10:07:00 CDT, Duration: 30 day, Stop da te: 07/23/18 10:06:00 CDT, 1.8, m2 Start Date: 06/23/18 Stop Date: 06/23/18 Status: Discontinued oxyCONTIN 10 mg, Route: PO, Drug form: ERTAB, ONCALL, Dosing Weight 73.438, kg, Start date : 06/21/18 12:00:00 CDT, Duration: 30 day, Stop date: 07/21/18 11:59:00 CDT Start Date: 06/21/18 Stop Date: 06/21/18 Status: Completed Percocet 10/325 oral tablet 1 tab, Route: PO, Dosing Weight 73.438, kg, Q3H, PRN Pain Score 7-10, Start date : 06/21/18 17:55:00 CDT, Duration: 30 day, Stop date: 07/21/18 17:54:00 CDT Start Date: 06/21/18 Stop Date: 06/21/18 Status: Deleted pneumococcal 23-valent vaccine 0.5 mL, Route: IM, Drug Form: INJ, ONCALL, Start date: 06/22/18 6:50:04 CDT, Sto p date: 07/22/18 6:45:04 CDT Notes: (Same as: Pneumovax 23) Refrigerate Start Date: 06/22/18 Stop Date: 06/24/18 Status: Discontinued propofol (ANES) Route: IV, Drug form: INJ, ONCE, Stop date: 06/21/18 16:03:00 CDT Start Date: 06/21/18 Stop Date: 06/21/18 Status: Completed ramipril 2.5 mg, 1 cap, Route: PO, Drug form: CAP, Daily, Dosing Weight 67.017, kg, Start date: 06/23/18 9:00:00 CDT, Duration: 30 day, Stop date: 07/22/18 9:00:00 CDT Notes: (Same as:Altace) Start Date: 06/23/18 Stop Date: 06/24/18 Status: Discontinued ramipril 2.5 mg oral capsule 2.5 mg=1 cap, PO, Daily, 0 Refill(s) Start Date: 06/10/18 Status: Ordered JOSELINE Pericapsular INJ 100 mL, Route: InFILtration(local), Drug Form: INJ, Dosing Weight 73.438, kg, 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8 mL) Ketorolac 30 mg/mL (1 mL) Normal Saline 48 .45 mL Start Date: 06/21/18 Stop Date: 06/24/18 Status: Discontinued rocuronium (ANES) Route: IV, Drug form: INJ, ONCE, Stop date: 06/21/18 16:38:00 CDT Start Date: 06/21/18 Stop Date: 06/21/18 Status: Completed Roxicodone 10 mg, 2 tab, Route: PO, Drug form: TAB, Q3H, PRN Pain Score 7-10, Start date: 0 06/21/18 20:22:00 CDT, Duration: 30 day, Stop date: 07/21/18 20:21:00 CDT Notes: (Same as: Roxicodone) Start Date: 06/21/18 Stop Date: 06/24/18 Status: Discontinued Sodium Chloride 0.9% (Bolus) IV 250 mL, 250 ml/hr, Infuse Over: 1 hr, Route: IV, 250, Drug form: INJ, ONCE, Prio rity: STAT, Dosing Weight 67.017 kg, Start date: 06/23/18 7:01:00 CDT, Stop date : 06/23/18 7:01:00 CDT Start Date: 06/23/18 Stop Date: 06/23/18 Status: Completed tizanidine 8 mg, 2 tab, Route: PO, Drug form: TAB, Q8H, Dosing Weight 67.017, kg, Start rody e: 06/22/18 16:00:00 CDT, Duration: 30 day, Stop date: 07/22/18 8:00:00 CDT Notes: (Same As: Zanaflex) Start Date: 06/22/18 Stop Date: 06/24/18 Status: Discontinued tizanidine 4 mg oral capsule 8 mg=2 cap, PO, TID, 0 Refill(s) Start Date: 06/10/18 Status: Ordered tranexamic acid + Sodium Chloride 0.9% IV 100 mL 1,000 mg, 10 mL, Route: IV, ONCALL, Dosing Weight 73.438, kg, Start date: 12:00:00 CDT, Duration: 30 day, Stop date: 07/21/18 11:59:00 CDT Notes: (Same As: Cyklokapron) Start Date: 06/21/18 Stop Date: 06/24/18 Status: Discontinued Tylenol 325 mg, 1 tab, Route: PO, Drug form: TAB, Q3H, PRN Pain Score 7-10, Start date: 06/21/18 20:23:00 CDT, Duration: 30 day, Stop date: 07/21/18 20:22:00 CDT Notes: Do not exceed 4 gm/day. (Same as: Tylenol) Start Date: 06/21/18 Stop Date: 06/24/18 Status: Discontinued Tylenol 1,000 mg, Route: PO, ONCALL, Dosing Weight 73.438, kg, Start date: 06/21/18 12:0 0:00 CDT, Duration: 30 day, Stop date: 07/21/18 11:59:00 CDT Start Date: 06/21/18 Stop Date: 06/21/18 Status: Completed vancomycin (ANES) 1000 mg Route: IV, Drug form: INJ, Start date: 06/21/18 15:53:00 CDT, Stop date: 8 16:53:00 CDT Start Date: 06/21/18 Stop Date: 06/21/18 Status: Completed vancomycin (SCIP) + Dextrose 5% in Water IV 250 mL 1,000 mg, Route: IVPB, [id number], Dosing Weight 73.438, kg, Time Critical Medicati on, Start date: 06/21/18 5:00:00 CDT, Duration: 2 doses or times, Stop date: 17:00:00 CDT, Pharmacy to adjust dose for renal function, ABX Indication: Surgical Pr... Notes: TIME CRITICAL MEDICATION(Same As: Vancocin)Infusion rate< 1000 mg: infuse over 1 [id number] - 1500 mg: infuse over 1.5 [id number] - 2000 mg: infuse over 2 hours> 2001 mg: infuse over 2.5 hoursFor adult patients only: Round to nearest 250 mg per Medical Staff approval MEDICATION WASTE Product Size: 1000 mgProduct Wasted: ___ mg Start Date: 06/21/18 Stop Date: 06/21/18 Status: Completed vancomycin + Dextrose 5% in Water IV 250 mL 1,000 mg, Route: IVPB, ONCALL, Dosing Weight 73.438, kg, Start date: 06/21/18 12 :00:00 CDT, Duration: 1 day, Stop date: 06/22/18 11:59:00 CDT, ABX Indication: S urgical Prophylaxis Notes: TIME CRITICAL MEDICATION(Same As: Vancocin)Infusion rate< 1000 mg: infuse over 1 [id number] - 1500 mg: infuse over 1.5 [id number] - 2000 mg: infuse over 2 hours> 2001 mg: infuse over 2.5 hoursFor adult patients only: Round to nearest 250 mg per Medical Staff approval MEDICATION WASTE Product Size: 1000 mgProduct Wasted: ___ mg Start Date: 06/21/18 Stop Date: 06/24/18 Status: Discontinued venlafaxine 75 mg oral tablet 75 mg=1 tab, PO, BID, 0 Refill(s) Start Date: 06/10/18 Status: Ordered Vitamin B1 100 mg, 1 tab, Route: PO, Drug form: TAB, Daily, Dosing Weight 67.017, kg, Start date: 06/23/18 9:00:00 CDT, Duration: 30 day, Stop date: 07/22/18 9:00:00 CDT Notes: (Same As: Vitamin B1) Start Date: 06/23/18 Stop Date: 06/24/18 Status: Discontinued Vitamin B1 100 mg oral tablet 100 mg=1 tab, PO, Daily, 0 Refill(s) Start Date: 06/10/18 Status: Ordered Zofran 4 mg, 2 mL, Route: IVP, Drug form: INJ, Q8H, Dosing Weight 73.438, kg, PRN Nause a, Start date: 06/21/18 17:55:00 CDT, Duration: 30 day, Stop date: 07/21/18 17:5 4:00 CDT Notes: (Same as: Zofran) MEDICATION WASTE Product Size: 4 mgProduct Was rickey: ___ mg Start Date: 06/21/18 Stop Date: 06/22/18 Status: Discontinued Zofran 4 mg, 2 mL, Route: IV, Drug form: INJ, Q6H, Dosing Weight 73.438, kg, PRN Other -See Comment, Start date: 06/21/18 17:55:00 CDT, Duration: 30 day, Stop date: 17:54:00 CDT, nausea and vomiting Notes: (Same as: Zofran) MEDICATION WASTE Product Size: 4 mgProduct Was rickey: ___ mg Start Date: 06/21/18 Stop Date: 06/24/18 Status: Discontinued Zofran 4 mg, 2 mL, Route: IV, Drug form: INJ, Q6H, Dosing Weight 73.438, kg, Start date : 06/21/18 18:00:00 CDT, Duration: 4 doses or times, Stop date: 06/22/18 12:00:0 0 CDT Notes: (Same as: Jaquelin) MEDICATION WASTE Product Size: 4 mgProduct Was rickey: ___ mg Start Date: 06/21/18 Stop Date: 06/22/18 Status: Completed zolpidem 5 mg, 1 tab, Route: PO, Drug form: TAB, Bedtime, Dosing Weight 67.017, kg, Start date: 06/22/18 21:00:00 CDT, Duration: 30 day, Stop date: 07/21/18 21:00:00 CDT Notes: (Same As: Mariana) Start Date: 06/22/18 Stop Date: 06/24/18 Status: Discontinued zolpidem 10 mg oral tablet 10 mg=1 tab, PO, Bedtime, 0 Refill(s) Start Date: 06/10/18 Status: Ordered Results BLOOD BANK RESULTS 1 2 3 Most recent to oldest [Reference Range]: O POS *Unknown* (06/21/18 12:05 PM) O POS *Unknown* (06/10/18 8:17 AM) ABO/Rh Negative (06/21/18 12:05 PM) Negative (06/10/18 8:17 AM) Antibody Scrn Product available 1 (06/23/18 4:44 AM) RBC product 1Result Comment: 06/23/2018 05:14 [id number] Notified Corie 06/23/2018 05:14 hp ELECTROLYTES 1 2 3 Most recent to oldest [Reference Range]: 137 mEq/L (06/24/18 2:43 AM) 130 mEq/L *LOW* (06/23/18 3:07 AM) 139 mEq/L (06/22/18 5:16 AM) Sodium Lvl [135-145 mEq/L] 4.3 mEq/L (06/24/18 2:43 AM) 4.4 mEq/L (06/23/18 3:07 AM) 3.8 mEq/L (06/22/18 5:16 AM) Potassium Lvl [3.5-5.1 mEq/L] 102 mEq/L (06/24/18 2:43 AM) 98 mEq/L (06/23/18 3:07 AM) 102 mEq/L (06/22/18 5:16 AM) Chloride Lvl [95-109 mEq/L] 25 mEq/L (06/24/18 2:43 AM) 25 mEq/L (06/23/18 3:07 AM) 24 mEq/L (06/22/18 5:16 AM) CO2 [24-32 mEq/L] 14.3 mEq/L (06/24/18 2:43 AM) 11.4 mEq/L (06/23/18 3:07 AM) 16.8 mEq/L (06/22/18 5:16 AM) AGAP [10.0-20.0 mEq/L] CHEM PANEL 1 2 3 Most recent to oldest [Reference Range]: 0.65 mg/dL (06/24/18 2:43 AM) 0.70 mg/dL (06/23/18 3:07 AM) 0.81 mg/dL (06/22/18 5:16 AM) Creatinine Lvl [0.50-1.40 mg/dL] 103 mL/min/1.73m2 1 *NA* (06/24/18 2:43 AM) 100 mL/min/1.73m2 2 *NA* (06/23/18 3:07 AM) 94 mL/min/1.73m2 3 *NA* (06/22/18 5:16 AM) eGFR 12 mg/dL (06/24/18 2:43 AM) 11 mg/dL (06/23/18 3:07 AM) 13 mg/dL (06/22/18 5:16 AM) BUN [7-22 mg/dL] 160 mg/dL *HI* (06/24/18 2:43 AM) 139 mg/dL *HI* (06/23/18 3:07 AM) 113 mg/dL *HI* (06/22/18 5:16 AM) Glucose Lvl [70-99 mg/dL] 8.5 mg/dL (06/24/18 2:43 AM) 7.9 mg/dL *LOW* (06/23/18 3:07 AM) 8.5 mg/dL (06/22/18 5:16 AM) Calcium Lvl [8.5-10.5 mg/dL] 1Result Comment: The eGFR is calculated using the [...] from the National Kidney Disease Education Program ( NKDEP) which additionally recommends that when the eGFR is used in patients with extremes of body mass index for purposes of drug dosing, the eGFR should be mul tiplied by the estimated BMI. 2Result Comment: The eGFR is calculated using the [...] from the National Kidney Disease Education Program ( NKDEP) which additionally recommends that when the eGFR is used in patients with extremes of body mass index for purposes of drug dosing, the eGFR should be mul tiplied by the estimated BMI. 3Result Comment: The eGFR is calculated using the [...] from the National Kidney Disease Education Program ( NKDEP) which additionally recommends that when the eGFR is used in patients with extremes of body mass index for purposes of drug dosing, the eGFR should be mul tiplied by the estimated BMI. URINE AND STOOL 1 2 3 Most recent to oldest [Reference Range]: Clear (06/10/18 8:17 AM) UA Turbidity [Clear] Ltyellow *NA* (06/10/18 8:17 AM) UA Color 6.0 (06/10/18 8:17 AM) UA pH [5.0-8.0] 1.010 (06/10/18 8:17 AM) UA Spec Grav [<=1.030] Negative mg/dL *NA* (06/10/18 8:17 AM) UA Glucose [Negative mg/dL] Negative (06/10/18 8:17 AM) UA Blood [Negative] Negative mg/dL *NA* (06/10/18 8:17 AM) UA Ketones [Negative mg/dL] Negative mg/dL (06/10/18 8:17 AM) UA Protein [Negative mg/dL] <=1.0 mg/dL *NA* (06/10/18 8:17 AM) UA Urobilinogen [0.1-1.0 mg/dL] Negative *NA* (06/10/18 8:17 AM) UA Bili [Negative] Negative (06/10/18 8:17 AM) UA Leuk Est [Negative] Negative (06/10/18 8:17 AM) UA Nitrite [Negative] Occasional /LPF *NA* (06/10/18 8:17 AM) UA Sq Epi [Few /LPF] 4 /LPF *HI* (06/10/18 8:17 AM) UA Hyal Cast [0-2 /LPF] HEMATOLOGY 1 2 3 Most recent to oldest [Reference Range]: 9.9 K/CMM (06/24/18 2:43 AM) 13.5 K/CMM *HI* (06/23/18 3:07 AM) 21.8 K/CMM *HI* (06/22/18 5:16 AM) WBC [3.7-10.4 K/CMM] 3.32 M/CMM *LOW* (06/24/18 2:43 AM) 2.54 M/CMM *LOW* (06/23/18 3:07 AM) 3.29 M/CMM *LOW* (06/22/18 5:16 AM) RBC [4.70-6.10 M/CMM] 9.3 g/dL *LOW* (06/24/18 2:43 AM) 7.0 g/dL 1 *CRIT* (06/23/18 3:07 AM) 8.7 g/dL *LOW* (06/22/18 5:16 AM) Hgb [14.0-18.0 g/dL] 28.0 % *LOW* (06/24/18 2:43 AM) 20.8 % *LOW* (06/23/18 3:07 AM) 26.8 % *LOW* (06/22/18 5:16 AM) Hct [42.0-54.0 %] 84.4 fL (06/24/18 2:43 AM) 82.1 fL (06/23/18 3:07 AM) 81.3 fL (06/22/18 5:16 AM) MCV [80.0-94.0 fL] 28.0 pg (06/24/18 2:43 AM) 27.4 pg (06/23/18 3:07 AM) 26.5 pg *LOW* (06/22/18 5:16 AM) MCH [27.0-31.0 pg] 33.2 g/dL (06/24/18 2:43 AM) 33.4 g/dL (06/23/18 3:07 AM) 32.6 g/dL (06/22/18 5:16 AM) MCHC [32.0-36.0 g/dL] 16.0 % *HI* (06/24/18 2:43 AM) 15.9 % *HI* (06/23/18 3:07 AM) 15.7 % *HI* (06/22/18 5:16 AM) RDW [11.5-14.5 %] 7.2 fL *LOW* (06/24/18 2:43 AM) 7.3 fL *LOW* (06/23/18 3:07 AM) 7.3 fL *LOW* (06/22/18 5:16 AM) MPV [7.4-10.4 fL] 211 K/CMM (06/24/18 2:43 AM) 184 K/CMM (06/23/18 3:07 AM) 278 K/CMM (06/22/18 5:16 AM) Platelet [133-450 K/CMM] 91.6 % *HI* (06/24/18 2:43 AM) 89.8 % *HI* (06/23/18 3:07 AM) 88.9 % *HI* (06/22/18 5:16 AM) Segs [45.0-75.0 %] 4.5 % *LOW* (06/24/18 2:43 AM) 4.9 % *LOW* (06/23/18 3:07 AM) 5.8 % *LOW* (06/22/18 5:16 AM) Lymphocytes [20.0-40.0 %] 3.7 % (06/24/18 2:43 AM) 4.9 % (06/23/18 3:07 AM) 5.1 % (06/22/18 5:16 AM) Monocytes [2.0-12.0 %] 7.5 % *HI* (06/10/18 8:17 AM) Eosinophils [0.0-4.0 %] 0.2 % (06/24/18 2:43 AM) 0.4 % (06/23/18 3:07 AM) 0.2 % (06/22/18 5:16 AM) Basophils [0.0-1.0 %] 9.1 K/CMM *HI* (06/24/18 2:43 AM) 12.2 K/CMM *HI* (06/23/18 3:07 AM) 19.4 K/CMM *HI* (06/22/18 5:16 AM) Neutrophils # [1.5-8.1 K/CMM] 0.4 K/CMM *LOW* (06/24/18 2:43 AM) 0.7 K/CMM *LOW* (06/23/18 3:07 AM) 1.3 K/CMM (06/22/18 5:16 AM) Lymphocytes # [1.0-5.5 K/CMM] 0.4 K/CMM (06/24/18 2:43 AM) 0.7 K/CMM (06/23/18 3:07 AM) 1.1 K/CMM *HI* (06/22/18 5:16 AM) Monocytes # [0.0-0.8 K/CMM] 0.8 K/CMM *HI* (06/10/18 8:17 AM) Eosinophils # [0.0-0.5 K/CMM] 0.1 K/CMM (06/23/18 3:07 AM) 0.1 K/CMM (06/10/18 8:17 AM) Basophils # [0.0-0.2 K/CMM] 13.8 seconds (06/10/18 8:17 AM) PT [12.0-14.7 seconds] 1.06 (06/10/18 8:17 AM) INR [0.85-1.17] 31.9 seconds (06/10/18 8:17 AM) PTT [22.9-35.8 seconds] 1Result Comment: Critical Result(s) called to Pricila strange at 06/23/2018 03:44 by hp. Read back OK. BACTERIAL - SEROLOGY 1 2 3 Most recent to oldest [Reference Range]: Negative (06/10/18 8:17 AM) MRSA by PCR Immunizations No data available for this section Procedures Procedure Date Related Diagnosis Body Site Status Laparotomy 04/10/15 Completed Stent placement 04/01/15 Completed Social History Social History Type Response Smoking Status Former smoker; Type: Cigarettes; Exposure to Tobacco Smoke None; Cigarette Smoking Last 365 Days No; Reg Smoking Cessation Counseling No; Other Tobacco Frequency Pt. quit in 1998.; entered on: 06/21/18 Assessment and Plan Extracted from: Title: Clinical Document Author: Radhames Mendieta MD Date: 06/24/18 Hospitalist Progress Note [facility] Radhames Mendieta MD SUBJECTIVE: Patient seen and examined, events reviewed Denies much pain at this time OBJECTIVE: Vitals and Temp: VitalsTmp(F)[id number] 06/24 12:02----41261/65-------- 06/24 07:1898.824036/419241--- 06/24 04:2298.459661/155015--- 06/23 23:0698.447174/086402--- 06/23 20:0197.561562/554062--- 24 Hr Tmax: 98.6F (37.00c) at 06/24 07:18Vital Signs are the last 5 in the past 48 hours. Input/Output RecordInOutBal 05/2724hr Tot 0 0 0 05/2624hr Tot 1380 2150 -770 Labs (Last four charted values) WBC 9.9(JUN 24)H 13.5(JUN 23)H 21.8(JUN 22)H 27.7(JUN 21) Hgb L 9.3(JUN 24)C 7.0(JUN 23)L 8.7(JUN 22)L 10.6(JUN 21) Hct L 28.0(JUN 24)L 20.8(JUN 23)L 26.8(JUN 22)L 32.9(JUN 21) Plt 211(JUN 24)184(JUN 23)278(JUN 22)349(JUN 21) Na 137(JUN 24)L 130(JUN 23)139(JUN 22)L 132(JUN 10) K 4.3(JUN 24)4.4(JUN 23)3.8(JUN 22)4.5(JUN 10) CO2 25(JUN 24)25(JUN 23)24(JUN 22)30(JUN 10) Cl 102(JUN 24)98(JUN 23)102(JUN 22)L 93(JUN 10) Cr 0.65(JUN 24)0.70(JUN 23)0.81(JUN 22)1.06(JUN 10) BUN 12(JUN 24)11(JUN 23)13(JUN 22)14(JUN 10) Glucose Random H 160(JUN 24)H 139(JUN 23)H 113(JUN 22)H 111(JUN 10) Ca 8.5(JUN 24)L 7.9(JUN 23)8.5(JUN 22)9.7(JUN 10) PT 13.8(JUN 10) INR 1.06(JUN 10) PTT 31.9(JUN 10) MEDICATIONS Scheduled Meds (11):aspirin (aspirin 81 [...] Water IV 250 mL PRN Meds (6):acetaminophen-hydrocodone ([place] 10/325 oral tablet), acetaminophen-hydrocodone ([place] 5/325 oral tablet), acetaminophen (Tylenol), diphenhydrAMINE (Benadryl), ondansetron (Zofran), oxyCODONE (Roxicodone) One Time Meds (2):(Completed) Sodium Chloride 0.9% IV (Sodium Chloride 0.9% (Bolus) IV), (Deleted) dexamethasone Continuous Infusions (1):Sodium Chloride 0.45% IV 1,000 mL (1/2 NS 1,000 mL) ASSESSMENT & EXAM: GENERAL: In no apparent distress at this time. HEENT: EOMI. NECK: Supple. No jugular venous distention or bruits. CARDIOVASCULAR: Regular rate and rhythm, S1, S2 positive. LUNGS: Clear to auscultation bilateral. GASTROINTESTINAL: Soft, nontender, nondistended, positive bowel sounds. EXTREMITIES: No clubbing, cyanosis or edema. NEUROLOGICAL: Intact. No gross deficits noted. SKIN: no rashes noted. DIAGNOSES & PROBLEMS: Left MIREILLE, postop day #2 Anemia of acute blood loss Coronary artery disease status post stent Hypertension Left antecubital fossa swelling and redness PLAN & TREATMENT: H&H improved appropriately post transfusion Patient states that pain is improved We will plan discharge home today Appreciate orthopedics follow-up Discussed with family at bedside All questions answered Further recommendations will be based on this patient's clinical course Extracted from: Title: Clinical Document Author: Vj Lira MD Date: [...] mg SubQ Q24hr for 10 days post-op [place] 10/325 1-2 tab PO Q4-6Hr PRN Pain Resume Plavix after lovenox completed Continue all home medcations Contact [facility] if: Fever > 101.5 Increasing pain Redness along incision purulent drainage Extracted from: Title: Clinical Document Author: Radhames Mendieta MD Date: 06/22/18 Hospitalist Consultation [facility] Radhames Mendieta MD SUBJECTIVE: Patient seen and [...] MEDICAL HISTORY: Coronary artery disease status post NJ and stent placement Hypertension Peripheral neuropathy Osteoarthritis Hyperlipidemia Severe C. difficile colitis status post colostomy with reversal Knee arthroscopy Tramadol induced seizures MEDICATIONS: Please see nursing medical reconciliation form. ALLERGIES: Tramadol - causes seizures FAMILY HISTORY: Diabetes mellitus type 2 Hypertension Liver disease Arthritis SOCIAL HISTORY: Denies any tobacco, excessive alcohol or any illicit drug abuse. OBJECTIVE: Vitals and Temp: VitalsTmp(F)[id number] 06/22 04:0498.7954802/822230--- 06/22 00:0098.478984/857204--- 06/21 21:44 92459 21% 06/21 21:22----42513/6414------ 06/21 20:53----69636/6714------ 24 Hr Tmax: 98.9F (37.17c) at 06/21 11:40Vital Signs are the last 5 in the past 48 hours. Input/Output RecordInOutBal 05/2424hr Tot 1139 1250 -111 05/2324hr Tot 0 0 0 Labs (Last four charted values) WBC H 21.8(JUN 22)H 27.7(JUN 21)9.0(JUN 21)10.3(JUN 10) Hgb L 8.7(JUN 22)L 10.6(JUN 21)L 12.3(JUN 21)L 12.5(JUN 10) Hct L 26.8(JUN 22)L 32.9(JUN 21)L 37.0(JUN 21)L 38.2(JUN 10) Plt 278(JUN 22)349(JUN 21)302(JUN 21)365(JUN 10) Na L 132(JUN 10) K 4.5(JUN 10) CO2 30(JUN 10) Cl L 93(JUN 10) Cr 1.06(JUN 10) BUN 14(JUN 10) Glucose Random H 111(JUN 10) Ca 9.7(JUN 10) PT 13.8(JUN 10) INR 1.06(JUN 10) PTT 31.9(JUN 10) MEDICATIONS Scheduled Meds (4):docusate (Colace 100 mg oral capsule), enoxaparin, ketOROLAC, ondansetron (Zofran) Unscheduled Meds (5):ceFAZolin + sterile water 20 mL, pneumococcal 23-valent vaccine, ropivacaine (JOSELINE Pericapsular INJ), tranexamic acid + Sodium Chloride 0.9% IV 100 mL, vancomycin + Dextrose 5% in Water IV 250 mL PRN Meds (7):acetaminophen-hydrocodone ([place] 10/325 oral tablet), acetaminophen-hydrocodone ([place] 5/325 oral tablet), acetaminophen (Tylenol), diphenhydrAMINE (Benadryl), [...] 1,000 mL (1/2 NS 1,000 mL) ASSESSMENT & EXAM: GENERAL: In no apparent distress at [...] deficits noted. SKIN: no rashes noted. DIAGNOSES & PROBLEMS: Left MIREILLE, postop day #1 Anemia of acute blood loss Coronary artery disease status post stent Hypertension Left antecubital fossa swelling and redness PLAN & TREATMENT: Continue postoperative management per orthopedics We [...] follow him closely here with you at [facility] and address any other medical needs if they should arise. Extracted from: Title: Clinical Document Author: Vj Lira MD Date: 06/21/18 MIREILLE Op Dication Date: 06/21/2018 Location: [facility] [place] Attending: Vj Lira MD Pre-op dx: LEft hip osteoarthritis, Left femur neck fracture nonunion Post-op dx: above Procedure: Left total hip arthroplasty, complex 22 modifier Anesthesiologist : Dr. Juanjose Vázquez Anesthesia: Trim Crew Supervisor: Nj Boggs EBL: 250 cc UOP: no calderon IVF: see anesthesia note Transfusion: none required Implants: Sylvie Instrumentation Femur Stem: Size 9, SSF+, 13 [...] 1 or 2 mm increments reapproximating the patient s natural anteversion and abduction. We found that [...] achieved a press fit. We reapproximated the patient s natural femoral anteversion and steadily applied lateral [...] closed All deep sutures were #1 ethibonds. Teressa s fascia was closed with O-vicryls. Skin was closed with inverted subcutaneous 2-O vicryls and a running 4-O monocryl. The wound was dressed with dermabond, adaptic, telfa, and tape. Laminar flow exhaust suits were worn for the entire procedure. A surgical first dyer was required for the entire procedure. The first dyer was required for positioning, retraction, implant sizing/implantation, [...] porsche-operative morbidit and mortality. For these reasons nash is coded with an additional complexity code. Post-op Dispo: Patient will be admitted to the floor, receive 24 hours of intravenous antibiotics, and DVT prophylaxis. The patient toe touch weight bearing for 6 weeks with posterior hip precautions. Extracted from: Title: Clinical Document Author: Vj Lira MD Date: [...]
--- OUTSIDE RECORDS SUMMARY | 2019-05-01 16:24 | XMS REPORT ---
[facility] Address Unknown Phone Unavailable Care Team Providers Care Clay Puddler Name Role Phone Unavailable Unavailable Payers Payer Name Policy Type Policy Number Effective Date Expiration Date Problems This patient has no known problems. Allergies, Adverse Reactions, Alerts Allergy Name Allergy Type Status Severity Reaction(s) Onset Date Inactive Date Treating Clinician Comments tramadol DA Active SV 2019-04-01 00:00:00 tramadol DA Active SV 2018-12-23 00:00:00 tramadol DA Active SV 2016-04-18 00:00:00 Medications This patient has no known medications. Results Test Description Test Time Test Comments Text Results Atomic Results Result Comments - XR CHEST 2 V 2019-04-01 12:26:00 FAX: Bay Hernandez MD [phone] [place]: St: PRE FAX: Oswaldo Nazario [phone] Name: OSWALDO CONTRERAS [facility] : 1955 Age/S: 63/M [address] [place], [place] [address] Unit #: [id number] Loc: [place] [address] Phys: Bay Ellington MD Acct: [id number] Dis Date: Status: PRE [facility] PHONE #: [phone] Exam Date: 04/01/2019 1217 FAX #: [phone] Reason: [facility] EXAMS: CPT CODE: [id number] XR CHEST 2 V [id number] Study: - XR CHEST 2 V 04/01/2019 10:55 AM Patient Name: OSWALDO CONTRERAS MR: [id number] : 1955; Age: 63 years y/o Male Ordering Physician: Bay Ellington MD Clinical Indication: [facility] Comparison: April 19, 2016 x-ray FINDINGS LUNGS: The lungs are clear of consolidation, pleural effusion, and pneumothorax. HEART AND MEDIASTINUM: Normal size heart. LINES: None. OSSEOUS STRUCTURES: Mild spinal degenerative change without fracture, dislocation, or focal osseous lesion. OTHER: None. IMPRESSION: No acute abnormality as above di scussed. SL: [id number] at 1226 Reported and signed by: Femi Braun M.D. CC: Bay Ellington MD; Oswaldo Francis Technologist: RT Chelsea(Erika) Trnscrd Date/Time/By: 04/01/2019 ([id number]) : By: [email or web address] Orig Print D/T: S: 04/01/2019 (9548) PAGE 1 Signed Report CBC W/AUTO DIFF 2019-04-01 11:53:00 WHITE BLOOD CELL (test code=WBC) 6.13 x10 3/uL 4.5-11.0 RED BLOOD CELL (test code=RBC) 3.73 x10 6/uL 4.00-5.60 HEMOGLOBIN (test code=HGB) 9.0 g/dL 12.5-16.9 HEMATOCRIT (test code=HCT) 29.1 % 37.5-50.7 MEAN CELL VOLUME (test code=MCV) 78.0 fL 81.0-99.0 MEAN CELL HGB (test code=MCH) 24.1 pg 27.0-33.0 MEAN CELL HGB CONCETRATION (test code=MCHC) 30.9 g/dL 33.0-37.0 RED CELL DISTRIBUTION WIDTH CV (test code=RDW) 17.0 % 11.5-14.5 RED CELL DISTRIBUTION WIDTH SD (test code=RDW-SD) 48.4 fL 37.0-54.0 PLATELET COUNT (test code=PLT) 360 x10 3/uL 150-400 MEAN PLATELET VOLUME (test code=MPV) 9.7 fL 7.0-9.0 NEUTROPHIL % (test code=NT%) 68.0 % 56.0-77.0 IMMATURE GRANULOCYTE % (test code=IG%) 0.3 % 0.0-2.0 LYMPHOCYTE % (test code=LY%) 11.7 % 14.0-32.0 MONOCYTE % (test code=MO%) 13.5 % 4.8-9.0 EOSINOPHIL % (test code=EO%) 6.0 % 0.3-3.7 BASOPHIL % (test code=BA%) 0.5 % 0.0-2.0 NUCLEATED RBC % (test code=NRBC%) 0.0 % 0-0 NEUTROPHIL # (test code=NT#) 4.16 x10 3/uL 2.0-7.6 IMMATURE GRANULOCYTE # (test code=IG#) 0.02 x10 3/uL 0.00-0.03 LYMPHOCYTE # (test code=LY#) 0.72 x10 3/uL 1.0-3.8 MONOCYTE # (test code=MO#) 0.83 x10 3/uL 0.1-0.8 EOSINOPHIL # (test code=EO#) 0.37 x10 3/uL 0.0-0.2 BASOPHIL # (test code=BA#) 0.03 x10 3/uL 0.0-0.2 NUCLEATED RBC # (test code=NRBC#) 0.00 x10 3/uL 0.0-0.1 MANUAL DIFF REQUIRED (test code=MDIFF) NO BASIC METABOLIC [id number] 11:53:00* Test Item Value Reference Range Comments SODIUM (test code=NA) 130 mEq/L 134-147 POTASSIUM (test code=K) 4.8 mEq/L 3.4-5.0 CHLORIDE (test code=CL) 97 mEq/L 100-108 CARBON DIOXIDE (test code=CO2) 28 mEq/L 21-33 ANION GAP (test code=GAP) 10 0-20 GLUCOSE (test code=GLU) 108 mg/dL 70-110 BLOOD UREA NITROGEN (test code=BUN) 22 mg/dL 7-18 GLOMERULAR FILTRATION RATE (test code=GFR) 67.2 80-90 Units of measure=ml/min/1.73 m2 CREATININE (test code=CREAT) 1.1 mg/dL 0.6-1.3 CALCIUM (test code=CA) 8.9 mg/dL 8.0-10.5 PROTHROMBIN [id number] 11:46:00* Test Item Value Reference Range Comments PROTHROMBIN TIME PATIENT (test code=PTP) 14.1 SECONDS 9.3-12.9 INTERNATIONAL NORMAL RATIO (test code=INR) 1.2 0.8-1.2 TARGET INR BY INDICATION Indication INR1. Prophylaxis of venous thrombosis 2.0 - 3.0 (orthopedic surgery), Prophylaxis of venous thrombosis (other than high-risk surgery), Treatment of Deep Vein Thrombosis/Pulmonary Embolism, Prevention of systemic embolism - Tissue heart valves, Acute Myocardial Infarction (to prevent systemic embolism), Valvular heart disease, Atrial Fibrillation, Bileaflet mechanical valve in aortic position.2. Mechanical prosthetic valves (high risk), 2.5 - 3.5 Presence of Lupus Anticoagulant or Antiphospholipid Antibodies, Prevention of systemic embolism - Acute Myocardial Infarction (to prevent recurrent infarct). BASIC METABOLIC [id number] 08:33:00* Test Item Value Reference Range Comments SODIUM (test code=NA) 135 mEq/L 134-147 POTASSIUM (test code=K) 3.7 mEq/L 3.4-5.0 CHLORIDE (test code=CL) 101 mEq/L 100-108 CARBON DIOXIDE (test code=CO2) 29 mEq/L 21-33 ANION GAP (test code=GAP) 9 0-20 GLUCOSE (test code=GLU) 126 mg/dL 70-110 BLOOD UREA NITROGEN (test code=BUN) 9 mg/dL 7-18 GLOMERULAR FILTRATION RATE (test code=GFR) 113.2 80-90 Units of measure=ml/min/1.73 m2 CREATININE (test code=CREAT) 0.7 mg/dL 0.6-1.3 CALCIUM (test code=CA) 8.3 mg/dL 8.0-10.5 CBC W/AUTO [id number] 08:20:00* Test Item Value Reference Range Comments WHITE BLOOD CELL (test code=WBC) 8.71 x10 3/uL 4.5-11.0 RED BLOOD CELL (test code=RBC) 3.15 x10 6/uL 4.00-5.60 HEMOGLOBIN (test code=HGB) 8.3 g/dL 12.5-16.9 HEMATOCRIT (test code=HCT) 26.5 % 37.5-50.7 MEAN CELL VOLUME (test code=MCV) 84.1 fL 81.0-99.0 MEAN CELL HGB (test code=MCH) 26.3 pg 27.0-33.0 MEAN CELL HGB CONCETRATION (test code=MCHC) 31.3 g/dL 33.0-37.0 RED CELL DISTRIBUTION WIDTH CV (test code=RDW) 15.4 % 11.5-14.5 RED CELL DISTRIBUTION WIDTH SD (test code=RDW-SD) 47.0 fL 37.0-54.0 PLATELET COUNT (test code=PLT) 266 x10 3/uL 150-400 MEAN PLATELET VOLUME (test code=MPV) 9.6 fL 7.0-9.0 NEUTROPHIL % (test code=NT%) 78.5 % 56.0-77.0 IMMATURE GRANULOCYTE % (test code=IG%) 0.5 % 0.0-2.0 LYMPHOCYTE % (test code=LY%) 8.0 % 14.0-32.0 MONOCYTE % (test code=MO%) 10.0 % 4.8-9.0 EOSINOPHIL % (test code=EO%) 2.5 % 0.3-3.7 BASOPHIL % (test code=BA%) 0.5 % 0.0-2.0 NUCLEATED RBC % (test code=NRBC%) 0.0 % 0-0 NEUTROPHIL # (test code=NT#) 6.84 x10 3/uL 2.0-7.6 IMMATURE GRANULOCYTE # (test code=IG#) 0.04 x10 3/uL 0.00-0.03 LYMPHOCYTE # (test code=LY#) 0.70 x10 3/uL 1.0-3.8 MONOCYTE # (test code=MO#) 0.87 x10 3/uL 0.1-0.8 EOSINOPHIL # (test code=EO#) 0.22 x10 3/uL 0.0-0.2 BASOPHIL # (test code=BA#) 0.04 x10 3/uL 0.0-0.2 NUCLEATED RBC # (test code=NRBC#) 0.00 x10 3/uL 0.0-0.1 MANUAL DIFF REQUIRED (test code=MDIFF) NO - XR KNEE 1 OR 2 V [id number] 15:17:00 FAX: Brock Sandhu [phone] [place]: St: ADM FAX: Oswaldo Nazario [phone] FAX: Dillon Peters [phone] Name: OSWALDO CONTRERAS [facility] : 1955 Age/S: 63/M [address] [place] [address] Unit #: [id number] Loc: [place] [address] Phys: Dillon Treviño Acct: [id number] Dis Date: Status: ADM IN ONE #: [phone] Exam Date: 12/27/2018 1506 FAX #: [phone] Reason: post op TKA EXAMS: CPT CODE: [id number] XR KNEE 1 [place] 2 [place] [id number] PROCEDURE: 2 v iews of the left knee INDICATION: 63-year-old male status post tot al knee arthroplasty COMPARISON: None. FINDINGS: Sta tus post left total knee arthroplasty. Prostheses appear in good alignmen t. No evidence of osseous fracture or dislocation. Post surgical changes noted including soft tissue swelling, subcutaneous emphysema, and joint e ffusion. Vascular calcifications noted. IMPRESSIO N: 1. Status post left knee total arthroplasty with associated postsurgical changes. SL: [id number] at 1517 Reported and signed by: Malu Sood M.D. CC: Brock Dave MD; Oswaldo Francis; Dillon MENDOZA Technologist: Gloria Coley RT (R) Trnscrd Date/Time/By: 12/27/2018 (1517) : Mariajose y: [email or web address] Orig Print D/T: S: 12/27/2018 (1680) PAGE 1 Signed Report
[2019-05-01] MEDS ORDERED: SODIUM CHLORIDE 0.9% 1000ML 1,000 ML ONE (16:47)
[2019-05-01] MEDS ORDERED: SODIUM CHLORIDE 0.9% 1000ML 1,000 ML IV STA ×2 (17:06)
[2019-05-01 17:29] LABS: BASOPHILS % 0.2 % (0.0-1.0); EOSINOPHILS # (AUTO) 0.2 (0.0-0.4); EOSINOPHILS % 0.8 % (0.0-6.0); HEMATOCRIT 32.2 % (38.2-49.6); HEMOGLOBIN 9.9 g/dL (14.0-18.0); LYMPHOCYTES # (AUTO) 0.6 (1.0-3.2); LYMPHOCYTES % 3.1 % (18.0-39.1); MEAN CORPUSCULAR HGB CONC 30.7 g/dL (31-35); MEAN CORPUSCULAR VOLUME 78.2 fL (81-99); NEUTROPHILS # (AUTO) 17.5 (2.1-6.9); NEUTROPHILS % 90.2 % (38.7-80.0); PLATELET COUNT 310 x10e3/uL (140-360); RED BLOOD COUNT 4.12 x10e6/uL (4.3-5.7); RED CELL DISTRIBUTION WIDTH 19.1 % (11.7-14.4)
[2019-05-01 17:40] LABS: INR 1.03
[2019-05-01 17:41] LABS: PARTIAL THROMBOPLASTIN TIME 31.5 seconds (23.8-35.5)
[2019-05-01 17:51] LABS: ALANINE AMINOTRANSFERASE 28 IU/L (0-55); ALBUMIN 3.4 g/dL (3.5-5.0); ALBUMIN/GLOBULIN RATIO 0.7 (0.8-2.0); ALKALINE PHOSPHATASE 157 IU/L (40-150); ANION GAP 19.9 mmol/L (8-16); BLOOD UREA NITROGEN 20 mg/dL (7-26); BUN/CREATININE RATIO 10 (6-25); CALCIUM 9.1 mg/dL (8.4-10.2); CARBON DIOXIDE 17 mmol/L (22-29); CHLORIDE 91 mmol/L (98-107); CREATINE KINASE 532 IU/L (30-200); CREATININE, SERUM 1.97 mg/dL (0.72-1.25); EST GLOMERULAR FILTRATION RATE 34 ML/MIN (60-); GLUCOSE 64 mg/dL (74-118); LIPASE 7 U/L (8-78); MAGNESIUM 2.1 MG/DL (1.3-2.1); SODIUM 122 mmol/L (136-145)
--- NOTE | 2019-05-01 17:51 | Diagnostic Imaging Report ---
EXAMINATION: CHEST SINGLE (PORTABLE) COMPARISON: None INDICATION: ^HYPOTENSION, HURTS ALL OVER ^[id number] ^1725 DISCUSSION: Frontal view of the chest obtained at 1721 hours. HEART AND MEDIASTINUM: The cardiomediastinal silhouette is unremarkable. LINES: None. LUNGS: The lungs are well inflated and clear. No pneumonia or pulmonary edema. PLEURA: No pleural effusion or pneumothorax. BONES AND SOFT TISSUES: Degenerative changes of the spine. No focal osseous lesions. The soft tissues are normal. IMPRESSION: No acute cardiopulmonary disease. Signed by: Dr. Benja Celis MD on 05/01/2019 5:48 PM
[2019-05-01 18:01] LABS: B-TYPE NATRIURETIC PEPTIDE2 389.7 pg/mL (0-100); POTASSIUM 5.9 mmol/L (3.5-5.1)
[2019-05-01] MEDS ORDERED: DIATRIZOATE MEGL/DIATRIZOA SOD 30 ML BTL PO ONE (18:10)
[2019-05-01] MEDS ORDERED: VANCOMYCIN 1GM/NS 250 ML 250 ML IV ONE (18:30)
[2019-05-01] MEDS: CEFEPIME 2 GM/NS 0.9% 100 ML 100 ML IV SCH (18:54)
[2019-05-01] MEDS ORDERED: DEXTROSE 50% SYRINGE 50 ML IV STA (18:59)
[2019-05-01] MEDS ORDERED: DEXTROSE 5%/0.9% SOD CHL 1,000 ML IV ONE (19:00)
[2019-05-01] MEDS ORDERED: SODIUM BICARBONATE 8.4% INJ 50 ML SYR IV ONE (19:30)
[2019-05-01] MEDS ORDERED: CALCIUM GLUCONATE 10% INJ 4.65 MEQ in SODIUM CHLORIDE 0.9% 50ML 50 ML IV ONE (19:30)
[2019-05-01] MEDS ORDERED: INSULIN REGULAR, HUMAN 100 UNIT/1 ML 3ML VIAL IV ONE (19:30)
--- NOTE | 2019-05-01 19:43 | Diagnostic Imaging Report ---
EXAMINATION: Head CT without contrast. HISTORY:Syncope. COMPARISON:None. TECHNIQUE: Multidetector axial images were obtained from the foramen magnum to the vertex without contrast. The images were reconstructed using brain and bone algorithms. Thin section brain images were reformatted into coronal and sagittal planes. Dose modulation, iterative reconstruction, and/or weight based adjustment of the mA/kV was utilized to reduce the radiation dose to as low as reasonably achievable. Intravenous contrast: None IMAGE QUALITY: Suboptimal evaluation due to motion artifact particularly at the level of skull base and posterior fossa structures. FINDINGS: Skull/scalp: No lytic or blastic. lesions. No surgical changes. Parenchyma: Focal hypodensity in right lentiform nucleus represents old lacunar infarct. Nonspecific few, scattered supratentorial white matter patchy hypodensity, particularly in the left periatrial deep white matter are likely related to small vessel ischemic changes. No acute hemorrhage, mass or acute major vascular territorial infarct. Arteries: No density suggestive of thrombosis. Atherosclerotic calcification in bilateral carotid siphon. Dural sinuses: No abnormal density suggestive of thrombosis. Ventricles: No hydrocephalus or displacement. Extra-axial spaces: No abnormal density. Brain volume: Normal for age. Craniocervical junction: No mass, Chiari malformation, or basilar invagination. Sella: No mass. Paranasal/mastoid sinuses: Imaged portions unremarkable. IMPRESSION: No acute intracranial abnormality. Mild supratentorial white matter microvascular ischemic changes. Chronic lacunar infarct in right lentiform nucleus. Signed by: Dr. Gissel Quarles M.D. on 05/01/2019 7:39 PM
[2019-05-01 20:14] LABS: BILIRUBIN,URINE NEGATIVE (NEGATIVE); CLARITY,URINE CLEAR (CLEAR); COLOR,URINE YELLOW (YELLOW); KETONES,URINE NEGATIVE (NEGATIVE); LEUKOCYTE ESTERASE ,URINE NEGATIVE (NEGATIVE); NITRITE,URINE NEGATIVE (NEGATIVE); PROTEIN,URINE DIPSTICK TRACE (NEGATIVE); URINE UROBILINOGEN 0.2 mg/dL (0.2 - 1)
[2019-05-01 20:19] LABS: AMORPHOUS SEDIMENT,URINE FEW (FEW); BACTERIA,URINE RARE /HPF; RBC,URINE 0-5 /HPF (0-5); WBC,URINE (MAN) 0-5 /HPF (0-5)
--- NOTE | 2019-05-01 21:04 | Diagnostic Imaging Report ---
EXAM: CT Abdomen and Pelvis WITHOUT contrast INDICATION: Abdominal pain all over COMPARISON: None. TECHNIQUE: Abdomen and pelvis were scanned utilizing a multidetector helical scanner from the lung base to the pubic symphysis without administration of IV contrast. Absence of intravenous contrast decreases sensitivity for detection of focal lesions and vascular pathology. Coronal and sagittal reformations were obtained. Routine protocol was performed. IV CONTRAST: None ORAL CONTRAST: Gastroview COMPLICATIONS: None RADIATION DOSE: Total DLP: 1261 mGy*cm Estimated effective dose: (DLP x 0.015 x size factor) mSv CTDIvol has been reviewed. It is below the limits set by the Radiation Protocol Committee (RPC). Dose modulation, iterative reconstruction, and/or weight based adjustment of the mA/kV was utilized to reduce the radiation dose to as low as reasonably achievable. FINDINGS: LINES and TUBES: None. LOWER THORAX: Right coronary stent. Groundglass opacities in the posterior basilar left lower lobe. HEPATOBILIARY: No focal hepatic lesions. No biliary ductal dilation. GALLBLADDER: No radio-opaque stones or sludge. No wall thickening. SPLEEN: No splenomegaly. PANCREAS: No focal masses or ductal dilatation. ADRENALS: No adrenal nodules KIDNEYS/URETERS: No hydronephrosis. No cystic or solid mass lesions. No stones. GI TRACT: Gaseous distention and over dilation of the colon proximal to the anastomotic sutures at the sigmoid flexure, the transverse colon is dilated up to 8.5 cm. There is no transition point with decompressed distal loops, rather the colon dilation tapers towards nondilated sigmoid colon which has moderate volume of stool. No bowel wall thickening. Moderate gastric distention. Appendix is normal. PELVIC ORGANS/BLADDER: Unremarkable. LYMPH NODES: No lymphadenopathy. VESSELS: There is mild atherosclerotic disease in the aorta and major arterial branches. PERITONEUM / RETROPERITONEUM: No free air or fluid. BONES: Left hip total arthroplasty intact. Degenerative changes in the spine.. SOFT TISSUES: Unremarkable. IMPRESSION: 1. Gaseous distention and over dilation of colon possibly related to aperistalsis segment of colon at the colonic anastomosis at the sigmoid flexure as there is smooth caliber tapering and moderate colonic stool volume in the sigmoid colon and rectum. The small bowel loops are nondilated. 2. Left lower lobe basilar pneumonia. 3. Moderate distention of the urinary bladder, correlate for urinary retention. Signed by: Tripp Gonzalez DO on 05/01/2019 9:00 PM
[2019-05-01] MEDS ORDERED: VANCOMYCIN HCL 1GM/NS 250 ML BAG IV SCH (21:30)
--- OUTSIDE RECORDS SUMMARY | 2019-05-01 21:39 | XMS REPORT | Clinical Summary ---
Author Author [facility] Address Unknown Phone Unavailable Care Team Providers Care Assistant Product Manager Name Role Phone Vidal Francis MD PCP [...] more information, comfort gutierrez contact: Rigoberto Grijalva [address] [place] [address]
--- OUTSIDE RECORDS SUMMARY | 2019-05-01 21:40 | XMS REPORT | Continuity of Care Document ---
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 Name Role Phone [employer] Unavailable Unavailable Problems Problem Status Onset Date Classification Date Reported Comments Source Fracture of unspecified part of neck of left femur, subsequent encounter for closed fracture with nonunion 08/30/2018 01/11/2019 [facility] Unspecified intracapsular fracture of left femur, subsequent encounter for closed fracture with nonunion 05/25/2018 [facility] UNK Active 05/12/2018 [facility] M16.12 Active 05/12/2018 [facility] M16.12 UNILATERAL PRIMARY OSTEOARTHRITIS Active 04/12/2018 [facility] M25.562 - PAIN IN LEFT KNEE Active 02/09/2018 [facility] Pain in unspecified limb 12/05/2018 [facility] Unilateral primary osteoarthritis, left hip 01/11/2019 [facility] Acute posthemorrhagic anemia 01/11/2019 [facility] 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 01/11/2019 [facility] Major depressive disorder, single episode, unspecified 01/11/2019 [facility] Presence of coronary angioplasty implant and graft 01/11/2019 [facility] Essential hypertension 01/11/2019 [facility] Polyneuropathy, unspecified 01/11/2019 [facility] Hyperlipidemia, unspecified 01/11/2019 [facility] Localized swelling, mass and lump, left upper limb 01/11/2019 [facility] Stroke Res[facility] Problem [facility] Thyroid disease Active Problem [facility]/11[facility] Hypercholesteremia Active Problem 01/11/2019 [facility] HTN (Confirmed) Active Problem 01/11/2019 [facility] Heart attack Resolved Problem 01/11/2019 [facility] Seizure Resolved Problem 01/11/2019 [facility] UNILATERAL PRIMARY OSTEOARTHRITIS, LEFT Active [facility] Medications Medication Details Route Status Patient Instructions Ordering Provider Order Date Source 0.4 ML Enoxaparin sodium 100 MG/ML Prefilled Syringe [Lovenox] 40 mg, SUB-Q, Daily, X 7 day, # 7 ea, 0 Refill(s) No Longer Active 06/24/2018 [facility] Acetaminophen 325 MG / Hydrocodone Bitartrate 10 MG Oral Tablet [[place] 10/325] 1 tab, PO, Q4H, PRN for pain, # 90 tab, 0 Refill(s), given to patient No Longer Active 06/24/2018 [facility] dexamethasone 4 mg, 1 tab, Route: PO, Drug form: TAB, ONCE, Dosing Weight 73.438, kg, Start date: 06/23/18 18:04:00 CDT, Stop date: 06/23/18 18:04:00 CDTNotes: Give with food. (Same As: Decadron) Inactive 06/23/2018 [facility] normal saline 0.9% IV 250 mL 250 mL, Rate: 30 ml/hr, Infuse over: 8.3 hr, Route: IV, Dosing Weight 67.017 kg, Total Volume: 250, Start date: 06/23/18 10:07:00 CDT, Duration: 30 day, Stop date: 07/23/18 10:06:00 CDT, 1.8, m2 Inactive 06/23/2018 [facility] Vitamin B1 100 mg, 1 tab, Route: PO, Drug form: TAB, Daily, Dosing Weight 67.017, kg, Start date: 06/23/18 9:00:00 CDT, Duration: 30 day, Stop date: 07/22/18 9:00:00 CDTNotes: (Same As: Vitamin B1) No Longer Active 06/23/2018 [facility] Ramipril 2.5 mg, 1 cap, Route: PO, Drug form: CAP, Daily, Dosing Weight 67.017, kg, Start date: 06/23/18 9:00:00 CDT, Duration: 30 day, Stop date: 07/22/18 9:00:00 CDTNotes: (Same as:Altace) No Longer Active 06/23/2018 [facility] Folic Acid 1 mg, 1 tab, Route: PO, Drug form: TAB, Daily, Dosing Weight 67.017, kg, Start date: 06/23/18 9:00:00 CDT, Duration: 30 day, Stop date: 07/22/18 9:00:00 CDTNotes: (Same as: Folvite) No Longer Active 06/23/2018 [facility] Aspirin 81 MG Chewable Tablet 81 mg, 1 tab, Route: CHEW, Drug form: CHEWTAB, Daily, Dosing Weight 67.017, kg, Start date: 06/23/18 9:00:00 CDT, Duration: 30 day, Stop date: 07/22/18 9:00:00 CDTNotes: Take with food. No Longer Active 06/23/2018 [facility] Sodium Chloride 0.9% (Bolus) IV 250 mL, 250 ml/hr, Infuse Over: 1 hr, Route: IV, 250, Drug form: INJ, ONCE, Priority: STAT, Dosing Weight 67.017 kg, Start date: 06/23/18 7:01:00 CDT, Stop date: 06/23/18 7:01:00 CDT Inactive 06/23/2018 [facility] Levothroid 112 microgram, 1 tab, Route: PO, Drug form: TAB, Q6AM, Dosing Weight 67.017, kg, Start date: 06/23/18 6:00:00 CDT, Duration: 30 day, Stop date: 07/22/18 6:00:00 CDTNotes: Take 1 hour before or 2 hours a fter meal; Enteral feeds may interefere with the absorption of this medication.(Same as:Levothroid) No Longer Active 06/23/2018 [facility] zolpidem 5 mg, 1 tab, Route: PO, Drug form: TAB, Bedtime, Dosing Weight 67.017, kg, Start date: 06/22/18 21:00:00 CDT, Duration: 30 day, Stop date: 07/21/18 21:00:00 CDTNotes: (Same As: Ambien) No Longer Active 06/23/2018 [facility] gabapentin 300 MG Oral Capsule 300 mg, 1 cap, Route: PO, Drug form: CAP, Q12H, Dosing Weight 67.017, kg, Start date: 06/22/18 21:00:00 CDT, Duration: 30 day, Stop date: 07/22/18 9:00:00 CDTNotes: (Same as: Neurontin) No Longer Active 06/23/2018 [facility] carvedilol 6.25 mg, 2 tab, Route: PO, Drug form: TAB, Q12H, Dosing Weight 67.017, kg, Start date: 06/22/18 21:00:00 CDT, Duration: 30 day, Stop date: 07/22/18 9:00:00 CDTNotes: Give with food. (Same As: Coreg) No Longer Active 06/23/2018 [facility] Lovenox 40 mg, 0.4 mL, Route: SUB-Q, Drug form: INJ, [id number], Dosing Weight 73.438, kg, Start date: 06/22/18 18:00:00 CDT, Duration: 30 day, Stop date: 07/21/18 18:00:00 CDTNotes: (Same as: Lovenox) No Longer Active 06/22/2018 [facility] tizanidine 8 mg, 2 tab, Route: PO, Drug form: TAB, Q8H, Dosing Weight 67.017, kg, Start date: 06/22/18 16:00:00 CDT, Duration: 30 day, Stop date: 07/22/18 8:00:00 CDTNotes: (Same As: Zanaflex) No Longer Active 06/22/2018 [facility] Docusate Sodium 100 MG Oral Capsule [Colace] 100 mg, 1 cap, Route: PO, Drug form: CAP, BID, Dosing Weight 73.438, kg, Start date: 06/22/18 9:00:00 CDT, Duration: 30 day, Stop date: 07/21/18 17:00:00 CDTNotes: (Same as: Colace) (Do Not Crush) No Longer Active 06/22/2018 [facility] pneumococcal capsular polysaccharide type 1 vaccine / pneumococcal capsular polysaccharide type 10A vaccine / pneumococcal capsular polysaccharide type 11A vaccine / pneumococcal capsular polysaccharide type 12F vaccine / pneumococcal capsular polysacchar 0.5 mL, Route: IM, Drug Form: INJ, ONCALL, Start date: 06/22/18 6:50:04 CDT, Stop date: 07/22/18 6:45:04 CDTNotes: (Same as: Pneumovax 23) Refrigerate No Longer Active 06/22/2018 [facility] Ketorolac 15 mg, 1 mL, Route: IV, Drug form: INJ, Q12H, Dosing Weight 73.438, kg, Start date: 06/21/18 21:00:00 CDT, Duration: 2 day, Stop date: 06/23/18 9:00:00 CDTNotes: (Same as:Toradol) IV bolus must be given >15 seconds. Give IM administration slowly and deeply into the muscle. Not for use > 4 days. No Longer Active 06/22/2018 [facility] Tylenol 325 mg, 1 tab, Route: PO, Drug form: TAB, Q3H, PRN Pain Score 7-10, Start date: 06/21/18 20:23:00 CDT, Duration: 30 day, Stop date: 07/21/18 20:22:00 CDTNotes: Do not exceed 4 gm/day. (Same as: Tylenol) No Longer Active 06/22/2018 [facility] Roxicodone 10 mg, 2 tab, Route: PO, Drug form: TAB, Q3H, PRN Pain Score 7-10, Start date: 06/21/18 20:22:00 CDT, Duration: 30 day, Stop date: 07/21/18 20:21:00 CDTNotes: (Same as: Roxicodone) No Longer Active 06/22/2018 [facility] Dilaudid 1 mg, Route: IVP, ONCE, Dosing Weight 73.438, kg, Priority: STAT, Start date: 06/21/18 18:53:00 CDT, Stop date: 06/21/18 18:53:00 CDT Inactive 06/21/2018 [facility] Naloxone 0.1 mg, Route: SUB-Q, Q6H, Dosing Weight 73.438, kg, PRN Itching, Start date: 06/21/18 18:44:00 CDT, Duration: 30 day, Stop date: 07/21/18 18:43:00 CDT Inactive 06/21/2018 [facility] Meperidine 12.5 mg, Route: IVP, Q30Min, Dosing Weight 73.438, kg, PRN Other -See Comment, For shivering, Start date: 06/21/18 18:44:00 CDT, Duration: 2 doses or times, Stop date: Limited # of times Inactive 06/21/2018 [facility] Promethazine 6.25 mg, Route: IVPB, ONCE, Dosing Weight 73.438, kg, PRN Nausea & Vomiting, Start date: 06/21/18 18:44:00 CDT Inactive 06/21/2018 [facility] Ondansetron 4 mg, Route: IVP, ONCE, Dosing Weight 73.438, kg, PRN Nausea & Vomiting, Start date: 06/21/18 18:44:00 CDT Inactive 06/21/2018 [facility] 72 HR Scopolamine 0.0139 MG/HR Transdermal Patch 1 patch, Route: TOP, Drug Form: ERFILM, Dosing Weight 73.438, kg, ONCE, Apply behind ear. Avoid use in elderly., Start date: 06/21/18 18:44:00 CDT, Stop date: 06/21/18 18:44:00 CDT Inactive 06/21/2018 [facility] Diphenhydramine 12.5 mg, Route: IVP, Drug form: INJ, Q6H, Dosing Weight 73.438, kg, PRN Itching, Start date: 06/21/18 18:44:00 CDT, Duration: 30 day, Stop date: 07/21/18 18:43:00 CDT Inactive 06/21/2018 [facility] Albuterol 0.83 MG/ML Inhalant Solution 2.49 mg, Route: NEB, Q20Min, Dosing Weight 73.438, kg, PRN Wheezing, Priority: STAT, Start date: 06/21/18 18:44:00 CDT, Duration: 30 day, Stop date: 07/21/18 18:43:00 CDT Inactive 06/21/2018 [facility] Flumazenil 0.2 mg, Route: IVP, PRN, Dosing Weight 73.438, kg, PRN Benzodiazepine Reversal, Initial dose, Start date: 06/21/18 18:44:00 CDT, Duration: 30 day, Stop date: 07/21/18 18:43:00 CDT Inactive 06/21/2018 [facility] Fentanyl 50 microgram, Route: IVP, Q5Min, Dosing Weight 73.438, kg, PRN Pain Score 7-10, Priority: Routine, Start date: 06/21/18 18:44:00 CDT, Duration: 2 doses or times, Stop date: Limited # of times Inactive 06/21/2018 [facility] Acetaminophen 1,000 mg, Route: IVPB, Drug form: INJ, ONCE, Dosing Weight 73.438, kg, PRN Pain Score 1-3, Start date: 06/21/18 18:44:00 CDT Inactive 06/21/2018 [facility] Oxycodone 5 mg, Route: NG, Drug form: LIQ, Q4H, Dosing Weight 73.438, kg, PRN Pain Score 4-6, Start date: 06/21/18 18:44:00 CDT, Duration: 30 day, Stop date: 07/21/18 18:43:00 CDT Inactive 06/21/2018 [facility] Hydromorphone 0.5 mg, Route: IVP, Q5Min, Dosing Weight 73.438, kg, PRN Pain Score 7-10, Start date: 06/21/18 18:44:00 CDT, Duration: 4 doses or times, Stop date: Limited # of times Inactive 06/21/2018 [facility] hydromorphone (ANES) Route: IV, Drug form: INJ, ONCE, Stop date: 06/21/18 18:13:00 CDT Inactive 06/21/2018 [facility] neostigmine (ANES) Route: IV, Drug form: INJ, ONCE, Stop date: 06/21/18 18:08:00 CDT Inactive 06/21/2018 [facility] glycopyrrolate (ANES) Route: IV, Drug form: INJ, ONCE, Stop date: 06/21/18 18:08:00 CDT Inactive 06/21/2018 [facility] Zofran 4 mg, 2 mL, Route: IV, Drug form: INJ, Q6H, Dosing Weight 73.438, kg, Start date: 06/21/18 18:00:00 CDT, Duration: 4 doses or times, Stop date: 06/22/18 12:00:00 CDTNotes: (Same as: Zofran) MEDICATION WASTE Product Size: 4 mg Product Wasted: ___ mg No Longer Active 06/21/2018 [facility] Cefazolin 1 gm, Route: IVP, [id number], Dosing Weight 73.438, kg, Start date: 06/21/18 18:00:00 CDT, Duration: 3 doses or times, Stop date: 06/22/18 6:00:00 CDT, ABX Indication: Surgical ProphylaxisNotes: (Same As: [facility], [place]) MEDICATION WASTE Product Size: 1000 mg Product Wasted: ___ mg No Longer Active 06/21/2018 [facility] Enoxaparin 40 mg, 0.4 mL, Route: SUB-Q, Drug form: INJ, [id number], Dosing Weight 73.438, kg, Start date: 06/21/18 18:00:00 CDT, Duration: 30 day, Stop date: 07/20/18 18:00:00 CDTNotes: (Same as: Lovenox) No Longer Active 06/21/2018 [facility] Acetaminophen 325 MG / Hydrocodone Bitartrate 5 MG Oral Tablet [[place] 5/325] 1 tab, Route: PO, Drug Form: TAB, Dosing Weight 73.438, kg, Q3H, PRN Pain Score 1-3, Start date: 06/21/18 17:55:00 CDT, Duration: 30 day, Stop date: 07/21/18 17:54:00 CDTNotes: (Same as: [place] 325/5) Do not exceed 4gm/day of acetaminophen. No Longer Active 06/21/2018 [facility] Benadryl 25 mg, 0.5 mL, Route: IVP, Drug form: INJ, Q8H, Dosing Weight 73.438, kg, PRN Itching, Start date: 06/21/18 17:55:00 CDT, Duration: 30 day, Stop date: 07/21/18 17:54:00 CDTNotes: (Same as: Benadryl) No Longer Active 06/21/2018 [facility] Zofran 4 mg, 2 mL, Route: IVP, Drug form: INJ, Q8H, Dosing Weight 73.438, kg, PRN Nausea, Start date: 06/21/18 17:55:00 CDT, Duration: 30 day, Stop date: 07/21/18 17:54:00 CDTNotes: (Same as: Zofran) MEDICATION WASTE Product Size: 4 mg Product Wasted: ___ mg No Longer Active 06/21/2018 [facility] Acetaminophen 325 MG / Hydrocodone Bitartrate 10 MG Oral Tablet [[place] 10/325] 1 tab, Route: PO, Drug Form: TAB, Dosing Weight 73.438, kg, Q3H, PRN Pain Score 4-6, Start date: 06/21/18 17:55:00 CDT, Duration: 30 day, Stop date: 07/21/18 17:54:00 CDTNotes: Do not exceed 4gm/day of acetaminophen. (Same as: [place] 325/10) No Longer Active 06/21/2018 [facility] Dexamethasone 4 mg, 1 tab, Route: PO, Drug form: TAB, ONCE, Dosing Weight 73.438, kg, Start date: 06/21/18 17:55:00 CDT, Stop date: 06/21/18 17:55:00 CDTNotes: Give with food. (Same As: Decadron) No Longer Active 06/21/2018 [facility] Acetaminophen 325 MG / Oxycodone Hydrochloride 10 MG Oral Tablet [Percocet 10/325] 1 tab, Route: PO, Dosing Weight 73.438, kg, Q3H, PRN Pain Score 7-10, Start date: 06/21/18 17:55:00 CDT, Duration: 30 day, Stop date: 07/21/18 17:54:00 CDT Inactive 06/21/2018 [facility] 1/2 NS 1,000 mL 1,000 mL, Rate: 75 ml/hr, Infuse over: 13.3 hr, Route: IV, Dosing Weight 73.438 kg, Total Volume: 1,000, Start date: 06/21/18 17:55:00 CDT, Duration: 30 day, Stop date: 07/21/18 17:54:00 CDT, 1.91, m2 No Longer Active 06/21/2018 [facility] rocuronium (ANES) Route: IV, Drug form: INJ, ONCE, Stop date: 06/21/18 16:38:00 CDT Inactive 06/21/2018 [facility] metoclopramide (ANES) Route: IV, Drug form: INJ, ONCE, Stop date: 06/21/18 16:38:00 CDT Inactive 06/21/2018 [facility] metoprolol (ANES) Route: IV, Drug form: INJ, ONCE, Stop date: 06/21/18 16:38:00 CDT Inactive 06/21/2018 [facility] dexamethasone (ANES) Route: IV, Drug form: INJ, ONCE, Stop date: 06/21/18 16:38:00 CDT Inactive 06/21/2018 [facility] lidocaine (ANES) Route: IV, Drug form: INJ, ONCE, Stop date: 06/21/18 16:33:00 CDT Inactive 06/21/2018 [facility] albumin human (ANES) 25 gm Route: IV, Drug form: INJ, Start date: 06/21/18 16:30:00 CDT, Stop date: 06/21/18 17:30:00 CDT Inactive 06/21/2018 [facility] ceFAZolin (ANES) Route: IV, Drug form: INJ, ONCE, Stop date: 06/21/18 16:23:00 CDT Inactive 06/21/2018 [facility] propofol (ANES) Route: IV, Drug form: INJ, ONCE, Stop date: 06/21/18 16:03:00 CDT Inactive 06/21/2018 [facility] fentaNYL (ANES) Route: IV, Drug form: INJ, ONCE, Stop date: 06/21/18 16:03:00 CDT Inactive 06/21/2018 [facility] midazolam (ANES) Route: IV, Drug form: SOLN, ONCE, Stop date: 06/21/18 15:58:00 CDT Inactive 06/21/2018 [facility] vancomycin (ANES) 1000 mg Route: IV, Drug form: INJ, Start date: 06/21/18 15:53:00 CDT, Stop date: 06/21/18 16:53:00 CDT Inactive 06/21/2018 [facility] Lactated Ringers Injection IV (ANES) 1000 mL Route: IV, Total Volume: 1,000, Start date: 06/21/18 15:24:00 CDT, Stop date: 06/21/18 16:24:00 CDT Inactive 06/21/2018 [facility] Vancomycin 1,000 mg, Route: IVPB, ONCALL, [...] Wasted: ___ mg No Longer Active 06/21/2018 [facility] Tranexamic Acid 1,000 mg, 10 mL, Route: IV, ONCALL, Dosing Weight 73.438, kg, Start date: 06/21/18 12:00:00 CDT, Duration: 30 day, Stop date: 07/21/18 11:59:00 CDTNotes: (Same As: Cyklokapron) No Longer Active 06/21/2018 [facility] Cefazolin 2 gm, Route: IVP, ONCALL, Dosing Weight 73.438, kg, Start date: 06/21/18 12:00:00 CDT, Duration: 30 day, Stop date: 07/21/18 11:59:00 CDT, ABX Indication: Surgical ProphylaxisNotes: (Same As: Noe Sands) MEDICATION WASTE Product Size: 1000 mg Product Wasted: ___ mg No Longer Active 06/21/2018 [facility] Tylenol 1,000 mg, Route: PO, ONCALL, Dosing Weight 73.438, kg, Start date: 06/21/18 12:00:00 CDT, Duration: 30 day, Stop date: 07/21/18 11:59:00 CDT Inactive 06/21/2018 [facility] Oxycontin 10 mg, Route: PO, Drug form: ERTAB, ONCALL, Dosing Weight 73.438, kg, Start date: 06/21/18 12:00:00 CDT, Duration: 30 day, Stop date: 07/21/18 11:59:00 CDT Inactive 06/21/2018 [facility] ropivacaine 100 mL, Route: InFILtration(local), Drug Form: INJ, Dosing Weight 73.438, kg, ONCALL, Start date: 06/21/18 12:00:00 CDT, Duration: 30 day, Stop date: 07/21/18 11:59:00 CDTNotes: NOT FOR IV use Ropivacaine 5 mg/mL (49.25 mL) Epinephrine 1 mg/mL (0.5 mL) Clonidine 0.1 mg/mL (0.8 mL) Ketorolac 30 mg/mL (1 mL) Normal Saline 48.45 mL No Longer Active 06/21/2018 [facility] celecoxib 200 mg, Route: PO, ONCALL, Dosing Weight 73.438, kg, (for CrCl > 90 mL/min), Start date: 06/21/18 12:00:00 CDT, Duration: 30 day, Stop date: 07/21/18 11:59:00 CDT Inactive 06/21/2018 [facility] Calcium Chloride 0.0014 MEQ/ML / Potassium Chloride 0.004 MEQ/ML / Sodium Chloride 0.103 MEQ/ML / Sodium Lactate 0.028 MEQ/ML Injectable Solution 1,000 mL, Rate: 25 ml/hr, Infuse over: 40 hr, Route: IV, Dosing Weight 73.438 kg, Total Volume: 1,000, Start date: 06/21/18 11:18:00 CDT, Duration: 30 day, Stop date: 07/21/18 11:17:00 CDT, 1.91, m2 Inactive 06/21/2018 [facility] Vancomycin 1,000 mg, Route: IVPB, [id number], Dosing Weight 73.438, kg, Time Critical Medication, [...] mg Product Wasted: ___ mg Inactive 06/21/2018 [facility] ropivacaine 100 mL, Route: InFILtration(local), Drug Form: INJ, Dosing Weight 73.438, kg, ONCALL, Start date: 06/17/18 16:00:00 CDT, Stop date: 06/21/18 15:59:00 CDTNotes: NOT FOR IV use Ropivacaine 5 mg/mL (49.25 mL) Epinephrine 1 mg/mL (0.5 mL) Clonidine 0.1 mg/mL (0.8 mL) Ketorolac 30 mg/mL (1 mL) Normal Saline 48.45 mL No Longer Active 06/17/2018 [facility] Levothroid 112 mcg (0.112 mg) oral tablet 112 microgram=1 tab, PO, Daily, 0 Refill(s) Active 06/10/2018 [facility] tizanidine 4 mg oral capsule 8 mg=2 cap, PO, TID, 0 Refill(s) Active 06/10/2018 [facility] zolpidem 10 mg oral tablet 10 mg=1 tab, PO, Bedtime, 0 Refill(s) Active 06/10/2018 [facility] aripiprazole 10 MG Oral Tablet [Abilify] 10 mg=1 tab, PO, Daily, 0 Refill(s) Active 06/10/2018 [facility] Vitamin B1 100 mg oral tablet 100 mg=1 tab, PO, Daily, 0 Refill(s) Active 06/10/2018 [facility] Folic Acid 1 MG Oral Tablet 1 mg=1 tab, PO, Daily, 0 Refill(s) Active 06/10/2018 [facility] atorvastatin 40 mg oral tablet 40 mg=1 tab, PO, Daily, 0 Refill(s) Active 06/10/2018 [facility] ramipril 2.5 mg oral capsule 2.5 mg=1 cap, PO, Daily, 0 Refill(s) Active 06/10/2018 [facility] venlafaxine 75 mg oral tablet 75 mg=1 tab, PO, BID, 0 Refill(s) Active 06/10/2018 [facility] Aspirin 81 MG Chewable Tablet 81 mg=1 tab, CHEW, Daily, 0 Refill(s) Active 06/10/2018 [facility] clopidogrel 75 mg oral tablet 75 mg=1 tab, PO, Daily, 0 Refill(s) No Longer Active 06/10/2018 [facility] diclofenac sodium 50 mg=1 tab, PO, TID, PRN pain, # 30 tab, 0 Refill(s) Active 06/10/2018 [facility] carvedilol 6.25 mg oral tablet 6.25 mg=1 tab, PO, BID, # 180 tab, 0 Refill(s) Active 06/10/2018 [facility] gabapentin 300 MG Oral Capsule 300 mg=1 cap, PO, BID, # 90 cap, 1 Refill(s) Active 06/10/2018 [facility] Allergies, Adverse Reactions, Alerts Substance Category Reaction Severity Reaction type Status Date Reported Comments Source traMADol Assertion Drug allergy Active [facility] Immunizations No Data Provided for This Section Results Order Name Results Value Reference Range Date Interpretation Comments Source CHEM PANEL BUN 12 7 - 22 06/24/2018 [facility] CHEM PANEL Creatinine Lvl 0.65 0.50 - 1.40 06/24/2018 [facility] CHEM PANEL Glucose Lvl 160 70 - 99 06/24/2018 [facility] CHEM PANEL eGFR 103 06/24/2018 Result [...] should be multiplied by the estimated BMI. [facility] CHEM PANEL AGAP 14.3 10.0 - 20.0 06/24/2018 [facility] CHEM PANEL CO2 25 24 - 32 06/24/2018 [facility] CHEM PANEL Chloride Lvl 102 95 - 109 06/24/2018 [facility] CHEM PANEL Potassium Lvl 4.3 3.5 - 5.1 06/24/2018 [facility] CHEM PANEL Sodium Lvl 137 135 - 145 06/24/2018 [facility] CHEM PANEL Calcium Lvl 8.5 8.5 - 10.5 06/24/2018 [facility] HEMATOLOGY WBC 9.9 3.7 - 10.4 06/24/2018 [facility] HEMATOLOGY RBC 3.32 4.70 - 6.10 06/24/2018 [facility] HEMATOLOGY Hgb 9.3 14.0 - 18.0 06/24/2018 [facility] HEMATOLOGY MPV 7.2 7.4 - 10.4 06/24/2018 [facility] HEMATOLOGY MCV 84.4 80.0 - 94.0 06/24/2018 [facility] HEMATOLOGY Hct 28.0 42.0 - 54.0 06/24/2018 [facility] HEMATOLOGY MCH 28.0 27.0 - 31.0 06/24/2018 [facility] MCHC 33.2 32.0 - 36.0 06/24/2018 [facility] RDW 16.0 11.5 - 14.5 06/24/2018 [facility] Platelet 211 133 - 450 06/24/2018 [facility] Lymphocytes 4.5 20.0 - 40.0 06/24/2018 [facility] Monocytes 3.7 2.0 - 12.0 06/24/2018 [facility] Monocytes # 0.4 0.0 - 0.8 06/24/2018 [facility] Lymphocytes # 0.4 1.0 - 5.5 06/24/2018 [facility] Segs 91.6 45.0 - 75.0 06/24/2018 [facility] Basophils 0.2 0.0 - 1.0 06/24/2018 [facility] Neutrophils # 9.1 1.5 - 8.1 06/24/2018 [facility] BLOOD BANK RESULTS RBC product Product available 1 (06/23/18 4:44 AM) 06/23/2018 Result Comment: 06/23/2018 05:14 [id number]
Notified Corie 06/23/2018 05:14 [facility] CHEM PANEL eGFR 100 06/23/2018 Result [...] should be multiplied by the estimated BMI. [facility] CHEM PANEL Creatinine Lvl 0.70 0.50 - 1.40 06/23/2018 [facility] CHEM PANEL Sodium Lvl 130 135 - 145 06/23/2018 [facility] CHEM PANEL Potassium Lvl 4.4 3.5 - 5.1 06/23/2018 [facility] CHEM PANEL CO2 25 24 - 32 06/23/2018 [facility] CHEM PANEL AGAP 11.4 10.0 - 20.0 06/23/2018 [facility] CHEM PANEL Glucose Lvl 139 70 - 99 06/23/2018 [facility] CHEM PANEL BUN 11 7 - 22 06/23/2018 [facility] CHEM PANEL Calcium Lvl 7.9 8.5 - 10.5 06/23/2018 [facility] CHEM PANEL Chloride Lvl 98 95 - 109 06/23/2018 [facility] HEMATOLOGY MCV 82.1 80.0 - 94.0 06/23/2018 [facility] HEMATOLOGY MCH 27.4 27.0 - 31.0 06/23/2018 [facility] MCHC 33.4 32.0 - 36.0 06/23/2018 [facility] HEMATOLOGY RDW 15.9 11.5 - 14.5 06/23/2018 [facility] MPV 7.3 7.4 - 10.4 06/23/2018 [facility] HEMATOLOGY Platelet 184 133 - 450 06/23/2018 [facility] HEMATOLOGY RBC 2.54 4.70 - 6.10 06/23/2018 [facility] WBC 13.5 3.7 - 10.4 06/23/2018 [facility] Hct 20.8 42.0 - 54.0 06/23/2018 [facility] Hgb 7.0 14.0 - 18.0 06/23/2018 Result Comment: Critical Result(s) called to Pricila strange at 06/23/2018 03:44 by hp. Read back OK. [facility] HEMATOLOGY Monocytes 4.9 2.0 - 12.0 06/23/2018 [facility] HEMATOLOGY Lymphocytes 4.9 20.0 - 40.0 06/23/2018 [facility] HEMATOLOGY Segs 89.8 45.0 - 75.0 06/23/2018 [facility] HEMATOLOGY Neutrophils # 12.2 1.5 - 8.1 06/23/2018 [facility] HEMATOLOGY Basophils 0.4 0.0 - 1.0 06/23/2018 [facility] HEMATOLOGY Lymphocytes # 0.7 1.0 - 5.5 06/23/2018 [facility] HEMATOLOGY Monocytes # 0.7 0.0 - 0.8 06/23/2018 [facility] HEMATOLOGY Basophils # 0.1 0.0 - 0.2 06/23/2018 [facility] CHEM PANEL eGFR 94 06/22/2018 Result [...] should be multiplied by the estimated BMI. [facility] CHEM PANEL Sodium Lvl 139 135 - 145 06/22/2018 [facility] CHEM PANEL BUN 13 7 - 22 06/22/2018 [facility] CHEM PANEL Glucose Lvl 113 70 - 99 06/22/2018 [facility] CHEM PANEL Creatinine Lvl 0.81 0.50 - 1.40 06/22/2018 [facility] CHEM PANEL CO2 24 24 - 32 06/22/2018 [facility] CHEM PANEL Chloride Lvl 102 95 - 109 06/22/2018 [facility] CHEM PANEL Calcium Lvl 8.5 8.5 - 10.5 06/22/2018 [facility] CHEM PANEL Potassium Lvl 3.8 3.5 - 5.1 06/22/2018 [facility] CHEM PANEL AGAP 16.8 10.0 - 20.0 06/22/2018 [facility] Lymphocytes # 1.3 1.0 - 5.5 06/22/2018 [facility] HEMATOLOGY Neutrophils # 19.4 1.5 - 8.1 06/22/2018 [facility] HEMATOLOGY Monocytes # 1.1 0.0 - 0.8 06/22/2018 [facility] HEMATOLOGY Basophils 0.2 0.0 - 1.0 06/22/2018 [facility] HEMATOLOGY Monocytes 5.1 2.0 - 12.0 06/22/2018 [facility] HEMATOLOGY Segs 88.9 45.0 - 75.0 06/22/2018 [facility] Lymphocytes 5.8 20.0 - 40.0 06/22/2018 [facility] RBC 3.29 4.70 - 6.10 06/22/2018 [facility] Hgb 8.7 14.0 - 18.0 06/22/2018 [facility] Hct 26.8 42.0 - 54.0 06/22/2018 [facility] MCV 81.3 80.0 - 94.0 06/22/2018 [facility] MCH 26.5 27.0 - 31.0 06/22/2018 [facility] WBC 21.8 3.7 - 10.4 06/22/2018 [facility] Platelet 278 133 - 450 06/22/2018 [facility] MPV 7.3 7.4 - 10.4 06/22/2018 [facility] MCHC 32.6 32.0 - 36.0 06/22/2018 [facility] RDW 15.7 11.5 - 14.5 06/22/2018 [facility] BLOOD BANK RESULTS Antibody Scrn Negative (06/21/18 12:05 PM) 06/21/2018 [facility] BLOOD BANK RESULTS ABO/Rh O POS 06/21/2018 [facility] BACTERIAL - SEROLOGY MRSA by PCR Negative (06/10/18 8:17 AM) 06/10/2018 [facility] BLOOD BANK RESULTS ABO/Rh O POS 06/10/2018 [facility] BLOOD BANK RESULTS Antibody Scrn Negative (06/10/18 8:17 AM) 06/10/2018 [facility] PT 13.8 12.0 - 14.7 06/10/2018 [facility] PTT 31.9 22.9 - 35.8 06/10/2018 [facility] INR 1.06 0.85 - 1.17 06/10/2018 [facility] Basophils # 0.1 0.0 - 0.2 06/10/2018 [facility] Eosinophils # 0.8 0.0 - 0.5 06/10/2018 [facility] HEMATOLOGY Eosinophils 7.5 0.0 - 4.0 06/10/2018 [facility] URINE AND STOOL UA Urobilinogen <=1.0 mg/dL 0.1 - 1.0 06/10/2018 [facility] URINE AND STOOL UA Color Ltyellow 06/10/2018 [facility] URINE AND STOOL UA Hyal Cast 4 0 - 2 06/10/2018 [facility] URINE AND STOOL UA Sq Epi Occasional /LPF Few /LPF 06/10/2018 [facility] URINE AND STOOL UA Leuk Est Negative (06/10/18 8:17 AM) Negative 06/10/2018 [facility] URINE AND STOOL UA Spec Grav 1.010 <=1.030 06/10/2018 [facility] URINE AND STOOL UA Turbidity Clear (06/10/18 8:17 AM) Clear 06/10/2018 [facility] URINE AND STOOL UA Protein Negative mg/dL Negative mg/dL 06/10/2018 [facility] URINE AND STOOL UA Glucose Negative mg/dL Negative mg/dL 06/10/2018 [facility] URINE AND STOOL UA Nitrite Negative (06/10/18 8:17 AM) Negative 06/10/2018 [facility] URINE AND STOOL UA pH 6.0 5.0 - 8.0 06/10/2018 [facility] URINE AND STOOL UA Bili Negative *NA* (06/10/18 8:17 AM) Negative 06/10/2018 [facility] URINE AND STOOL UA Blood Negative (06/10/18 8:17 AM) Negative 06/10/2018 [facility] URINE AND STOOL UA Ketones Negative mg/dL Negative mg/dL 06/10/2018 [facility] Culture: Anaerobic No Anaerobes Isolated 04/19/2018 [facility] Gram Stain Report No Wbc'S Or Organisms Seen 04/19/2018 [facility] Culture: Aspirate/Body Fluid/Tissue No Growth 04/19/2018 [facility] C Synov w/GS No Growth 04/19/2018 [facility] Propionibacterium acnes Propionibacterium acnes 04/19/2018 [facility] Pathology Reports No Data Provided for [...] organized fluid collection demonstrated. VIJAY: AGNES 06/22/2018 [facility] Pelvis AP DX Exam: Pelvis AP [...] without evidence of complication SL: ECROBERT 06/21/2018 [facility] Pelvis AP DX EXAM: Pelvis HISTORY: Left hip replacement COMPARISON: 03/16/2018 TECHNIQUE: Intraoperative frontal view pelvis FINDINGS: Left hip arthroplasty in satisfactory alignment. SL: TVU-PC 06/21/2018 [facility] Chest 2 views DX Clinical Indication: [...] IMPRESSION: 1. No acute cardiopulmonary disease. SL: [id number] 06/10/2018 [facility] Hip wo contrast CT EXAM: CT [...] synovitis. 3. Stable mild heterotopic ossification. 05/18/2018 [facility] Arthrocentesis / Aspiration hip VR Patient Name: OSWALDO CONTRERAS : 1955; Age: 62 years y/o Male MR: [id number] PROCEDURE: CT-guided left hip arthrocentesis. PHYSICIAN PROVIDING [...] enough fluid to sent for cultures. SL: [id number] 04/19/2018 [facility] wo contrast CT Study: Left hip wo contrast CT Clinical Indication: M16.12 - OSTEOARTHRITIS Comparison: Plain films of the left hip from 03/16/2018 TECHNIQUE: Multiple axial CT images of the left hip were acquired without the administration of intravenous contrast. Multiplanar reformatted images were performed. TYS=527.22 mGy-cm FINDINGS: Chronic appearing, ununited, comminuted fracture [...] Please correlate for underlying inflammatory arthropathy. SL: [id number] 03/23/2018 [facility] Hip 2/3 views uni w pelvis DX Patient Name: OSWALDO CONTRERAS DOB: 1955; Age: 62 years y/o Male MR: [id number] * LEFT HIP (2 views) with frontal [...] are no aggressive appearing destructive lesions. SL: [id number] 03/16/2018 [facility] Knee 4+ views bilat DX Patient Name: OSWALDO CONTRERAS DOB: 1955; Age: 62 years y/o Male MR: [id number] Study: Knee 4+ views bilat DX 02/09/2018 2:23 PM CDT Ordering Physician: Clinical Indication: M25.561, M25.562 - KNEE PAIN; Comparison: None 4 views both knees Severe degenerative changes of both knees. Marked joint space narrowing within the medial compartments bilaterally. This is more prominent in the right knee, with near [id number] appearance, with subarticular sclerosis and cyst formation. There is no other bony fracture, subluxation or lesion evident. No large joint effusion is seen. IMPRESSION: Severe bilateral knee joint osteoarthritis, most marked within the medial compartment of the right knee. SL: [id number] 02/09/2018 [facility] Consultation Notes No Data Provided for This Section Discharge Summaries No Data Provided for This Section History and Physicals No Data Provided for This Section Vital Signs Vital Sign Value Date Comments Source Heart Rate 71 06/24/2018 [facility] Systolic (mm Hg) 108 06/24/2018 [facility] Diastolic (mm Hg) 65 06/24/2018 [facility] Heart Rate 73 06/24/2018 [facility] Temperature Oral (F) 98.6 F 06/24/2018 [facility] Respitory Rate 16 06/24/2018 [facility] Systolic (mm Hg) 135 06/24/2018 [facility] Diastolic (mm Hg) 69 06/24/2018 [facility] Systolic (mm Hg) 120 06/24/2018 [facility] Diastolic (mm Hg) 63 06/24/2018 [facility] Temperature Oral (F) 98.1 F 06/24/2018 [facility] Respitory Rate 15 06/24/2018 [facility] Heart Rate 61 06/24/2018 [facility] Temperature Oral (F) 98.2 F 06/24/2018 [facility] Respitory Rate 16 06/24/2018 [facility] Weight 67.017 06/22/2018 [facility] BMI Calculated 22.46 06/22/2018 [facility] Height 172.72 cm 06/22/2018 [facility] Weight 73.438 06/10/2018 [facility] BMI Calculated 23.23 06/10/2018 [facility] Height 177.8 cm 06/10/2018 [facility] Height 180.34 cm 04/19/2018 [facility] BMI Calculated 21.1 04/19/2018 [facility] Weight 68.636 04/19/2018 [facility] Encounters Location Location Details Encounter Type Encounter Number Reason For Visit Attending Provider ADM Date DC Date Status Source [facility] [place] [facility] [id number] Calderon Dubois 02/09/2018 02/10/2018 MARCELLO Faulkner [facility] [place] [facility] [id number] Calderon Dubois 03/16/2018 [facility] [place] [facility] [id number] Calderon Dubois 03/23/2018 03/24/2018 [facility] [id number] Vj Lira 04/19/2018 04/20/2018 [facility] [place] [facility] [id number] Vj Lira 05/18/2018 05/19/2018 [facility] Inpatient [id number] Vj Lira 06/21/2018 06/24/2018 [facility] Procedures Procedure Code Date Perfomer Comments Source Laparotomy [id number] 04/10/2015 [facility] Laparotomy [id number] 04/10/2015 [facility] Stent placement [id number] 04/01/2015 [facility] Stent placement [id number] 04/01/2015 [facility] Assessment and Plan Assessment and Plan Date Source Extracted from:Title: Clinical Document Author: Radhames Mendieta MD Date: 06/24/18 Hospitalist Progress Note [facility] [place] [place] Radhames Mendieta MD SUBJECTIVE: Patient seen and [...] Water IV 250 mL PRN Meds (6):acetaminophen-hydrocodone ([place] 10/325 oral tablet), acetaminophen-hydrocodone ([place] 5/325 oral tablet), acetaminophen (Tylenol), diphenhydrAMINE (Benadryl), [...] mg SubQ Q24hr for 10 days post-op [place] 10/325 1-2 tab PO Q4-6Hr PRN Pain Resume Plavix after lovenox completed Continue all home medcations Contact [facility] if: Fever > 101.5 Increasing pain Redness along incision purulent drainage Extracted from:Title: Clinical Document Author: Radhames Mendieta MD Date: 06/22/[address] [facility] [place] [place] Radhames Mendieta MD SUBJECTIVE: Patient seen and [...] MEDICAL HISTORY: Coronary artery disease status post HI and stent placement Hypertension Peripheral neuropathy Osteoarthritis [...] Water IV 250 mL PRN Meds (7):acetaminophen-hydrocodone ([place] 10/325 oral tablet), acetaminophen-hydrocodone ([place] 5/325 oral tablet), acetaminophen (Tylenol), diphenhydrAMINE (Benadryl), [...] follow him closely here with you at [facility] [place] [place] and address any other medical needs if they should arise. Extracted from:Title: Clinical Document Author: Vj Lira MD Date: 06/21/18 [place] Op Dication Date: 06/21/2018 Location: [facility] main OR Attending: Vj Lira MD Pre-op dx: LEft hip osteoarthritis, Left femur neck fracture nonunion Post-op dx: above Procedure: Left total hip arthroplasty, complex 22 modifier Anesthesiologist : Dr. Juanjose Vázquez Anesthesia: Welder Plasma Arc: Nj Boggs EBL: 250 cc UOP: no calderon IVF: see anesthesia note Transfusion: none required Implants: [place] Instrumentation Femur Stem: Size 9, SSF+, 13 [...] worn for the entire procedure. A surgical administration assistant was required for the entire procedure. The administration assistant was required for positioning, retraction, implant [...] lungs, stroke, heart attack, and . 06/24/2018 [facility] Plan of Care No Data Provided for This Section Social History Social History Date Source Social History TypeResponse Smoking Status Former smoker; Type: Cigarettes; Exposure to Tobacco Smoke None; Cigarette Smoking Last 365 Days No; Reg Smoking Cessation Counseling No; Other Tobacco Frequency Pt. quit in 1998.; entered on: 06/21/18 06/21/2018 [facility] Social History TypeResponse Smoking Status Former smoker; Type: Cigarettes; Exposure to Tobacco Smoke None; Cigarette Smoking Last 365 Days No; Reg Smoking Cessation Counseling No; Other Tobacco Frequency Pt. quit in 1998.; entered on: 06/21/18 06/21/2018 [facility] [place] No data available for this section 03/24/2018 [facility] [place] Family History No Data Provided for This Section Advance Directives No Data Provided for This Section Functional Status No Data Provided for This Section
--- NOTE | 2019-05-01 22:00 | NUR ---
THIS MUSIC [employer]ISTRIES DIRECTOR AND DR LOCO AT BEDSIDE DISCUSSED PATIENTS NEED FOR FERNANDES CATH, PATIENT REFUSED AFTER EXPLAINING IN DETAIL REASONING AND POTENTIAL EFFECTS OF NOT HAVING FERNANDES CATH. PER PATIENT, " I DO NOT WANT IT, I WILL LET YALL KNOW IF I DECIDE ON HAVING IT PLACED ON ME''. PATIENT VERBALIZED UNDERSTANDING TO THIS MUSIC MINISTRIES DIRECTOR AND DR LOCO. PATIENT WAS ALSO EXPLAINED IN DETAIL HIS CT SCAN RESULTS AND NEED FOR THE CATHETHER. DR BENJAMIN NOTIFIED BY DR OLCO OF PATIENTS REFUSAL OF FERNANDES CATH.
[2019-05-01] MEDS: DEXTROSE 5%/0.45% SOD CHL 1,000 ML IV SCH (22:24)
--- NOTE | 2019-05-01 23:09 | NUR ---
DR LOCO INFORMED OF IMPROVED LACTIC ACID
[2019-05-01] MEDS ORDERED: MORPHINE SULFATE INJ 4 MG/ML INJ 1ML IV ONE (23:30)
[2019-05-02] MEDS: ALBUTEROL SULF 0.083% NEB SOLN 3 ML NEB NEB SCH ×7 (00:35→23:00)
[2019-05-02] MEDS: IPRATROPIUM BROMIDE 0.02% 2.5 ML NEB NEB SCH ×4 (00:35→19:00)
[2019-05-02] MEDS ORDERED: SODIUM CHLORIDE 0.9% 1000ML 1,000 ML ONE (00:43)
[2019-05-02] MEDS: AZITHROMYCIN 500MG/SOD CHL 0.9% 250ML BAG IV SCH ×2 (00:49→20:37)
[2019-05-02] MEDS ORDERED: SODIUM CHLORIDE 0.9% 1000ML 1,000 ML IV ONE (01:00)
[2019-05-02 05:27] LABS: BASOPHILS % 0.2 % (0.0-1.0); EOSINOPHILS # (AUTO) 0.1 (0.0-0.4); EOSINOPHILS % 0.3 % (0.0-6.0); HEMATOCRIT 28.9 % (38.2-49.6); HEMOGLOBIN 8.6 g/dL (14.0-18.0); LYMPHOCYTES # (AUTO) 0.4 (1.0-3.2); LYMPHOCYTES % 2.9 % (18.0-39.1); MEAN CORPUSCULAR HEMOGLOBIN 23.6 pg (28-32); MEAN CORPUSCULAR HGB CONC 29.8 g/dL (31-35); MEAN CORPUSCULAR VOLUME 79.4 fL (81-99); MONOCYTES # (AUTO) 0.7 (0.2-0.8); MONOCYTES % 4.5 % (4.4-11.3); NEUTROPHILS # (AUTO) 13.4 (2.1-6.9); NEUTROPHILS % 91.2 % (38.7-80.0); PLATELET COUNT 201 x10e3/uL (140-360); RED BLOOD COUNT 3.64 x10e6/uL (4.3-5.7); RED CELL DISTRIBUTION WIDTH 18.7 % (11.7-14.4)
[2019-05-02 05:51] LABS: CREATINE KINASE MB 5.3 ng/mL (0-5.0)
[2019-05-02 06:14] LABS: ALBUMIN 2.6 g/dL (3.5-5.0); ALBUMIN/GLOBULIN RATIO 0.6 (0.8-2.0); ANION GAP 17.8 mmol/L (8-16); CREATININE, SERUM 1.27 mg/dL (0.72-1.25); POTASSIUM 4.8 mmol/L (3.5-5.1)
[2019-05-02] MEDS: CEFEPIME 2 GM/NS 0.9% 100 ML 100 ML IV SCH ×2 (06:52→17:14)
[2019-05-02] MEDS: DEXTROSE 5%/0.45% SOD CHL 1,000 ML IV SCH ×4 (06:52→20:37)
[2019-05-02 06:54] LABS: ANISOCYTOSIS S; BAND NEUTROPHILS % (MANUAL) 29 %; LYMPHOCYTES % (MANUAL) 5 % (19-48); MONOCYTES % (MANUAL) 3 % (3.4-9.0); NEUTROPHILS % (MANUAL) 63 % (40-74); PLATELET MORPHOLOGY COMMENT NORMAL; POIKILOCYTOSIS S; RBC MORPHOLOGY COMMENT NORMAL
[2019-05-02 06:55] LABS: PLATELET ESTIMATE ADEQUATE
[2019-05-02] MEDS ORDERED: DEXTROSE 50% SYRINGE 50 ML IV PRN (07:00)
--- NOTE | 2019-05-02 07:00 | NUR ---
dr goodson informed of 63 bg at bedside done. orders endorsed to al owens, patient is alert and orientated, no signs of hypoglycemia. Interventions done by this director underwriter sales and al owens.
[2019-05-02] MEDS ORDERED: DEXTROSE 50% SYRINGE 50 ML IV ONE (07:07)
--- NOTE | 2019-05-02 07:16 | NUR ---
report given to al owens , walking rounds and chart checks done
--- NOTE | 2019-05-02 07:20 | NUR ---
received report from off going nurse. patient in room in bed. awake and alert. no s/s of acute distress. resp even and non-labored. no c/o pain at this time. accucheck done with blood glucose 65. informed ER MD. orders received and entered into chart. pending IMCU room assignment. will continue to monitor.
--- NOTE | 2019-05-02 08:12 | Consultation ---
DATE OF CONSULTATION: 05/02/2019 HISTORY OF PRESENT ILLNESS: The patient is a 63-year-old male, presenting to the emergency room with complaints of ankle pain and joint pain. This evaluation in the emergency room revealed dilated colon, dilated stomach, and distended bladder. The patient had some associated nausea and vomited one time. He says he is passing flatus. Last bowel movement was yesterday. CT of the abdomen, however, revealed dilated colon with stool extending all the way down into the rectum. However, stomach was also dilated. Small bowel is not dilated. PAST MEDICAL HISTORY: Significant for coronary artery disease, previous stent. He has also been found to have pneumonia. He has had previous abdominal surgery with colon resection, colostomy, then subsequent reversal of the colostomy. MEDICATIONS: At home were listed in the chart. ALLERGIES: HE HAS AN ALLERGY TO TRAMADOL. CURRENT MEDICATIONS: Are also listed in the chart. FAMILY HISTORY: Noncontributory. SOCIAL HISTORY: The patient does not admit to smoking cigarettes, drinking alcohol. REVIEW OF SYSTEMS: As stated above. He has had no fever, no weight loss. PHYSICAL EXAMINATION: GENERAL: The patient is awake and alert. VITAL SIGNS: Reveal heart rate around 110, blood pressure is normal, and O2 saturation is 99%. HEENT: There is no scleral icterus. NECK: Has no masses. LUNGS: Equal breath sounds are clear bilaterally. CARDIAC: Regular rate and rhythm with no murmur. ABDOMEN: Distended, but soft with no significant tenderness with a healed midline left-sided abdominal wound. There is no mass. EXTREMITIES: Have no edema. NEUROLOGIC: Grossly intact. LABORATORY TESTS: White blood cell count on arrival was 19.4. Repeat was 14.7. Hemoglobin 8.6 and hematocrit 28.9. Chemistries, bicarb of 16. The bilirubin was elevated at 2.0. Lactic acid was also elevated. ASSESSMENT: A 63-year-old male with abdominal distention, appears to be urinary retention. Abdominal findings most likely due to an ileus involving the colon. There are no signs of peritonitis. No findings that would warrant immediate surgical intervention. PLAN: To repeat the abdominal x-ray today. The patient will likely benefit from Waterman catheter if this has not been placed. Thank you for asking me to see Mr. Erazo. MD MARA Thrasher/CORNELIO /[id number]
--- NOTE | 2019-05-02 09:31 | Diagnostic Imaging Report ---
Exam: KUB - 2 views Clinical History: Abdominal distention Comparison: CT abdomen and pelvis of 05/01/2019 Findings: Again seen is, now measuring up to 12.6 cm in maximum diameter, increased compared to the prior CT of 05/01/2019. No intraperitoneal free air. No dilated small bowel loops. There is now an absence of bowel gas in the rectum. Status post left total hip replacement. Moderate right hip degenerative changes. Osseous structures appear otherwise unremarkable. Patchy opacities at the left lung base correspond with left lower lobe consolidation seen on the CT of 05/01/2019. Impression: Slight interval increase in extent of dilated colon measuring up to 12.6 cm in diameter consistent with either aperistaltic segment or large bowel obstruction. No free air. Patchy opacities at the left lung base correspond with consolidation seen on CT and is consistent with pneumonia. Signed by: Raheem Butcher MD on 05/02/2019 9:28 AM
--- NOTE | 2019-05-02 09:52 | NUR ---
ENTERED ROOM TO START FERNANDES. PATIENT DECLINED FERNANDES AT THIS TIME.
[2019-05-02] MEDS ORDERED: HYDRALAZINE HCL 20 MG/ML VIAL IV PRN (12:30)
[2019-05-02] MEDS ORDERED: ACETAMINOPHEN 1000 MG/100 ML IV PRN (12:30)
--- NOTE | 2019-05-02 13:27 | NUR ---
post void checked with bladder scan. >200 ml. discussed with patient. patient agreed this time to have calderon placed. 2,200ml return. patient tolerated well and reports he does feel relief after having calderon placed.
[2019-05-02 14:00] VITALS: BP 115/89
[2019-05-02 14:15] VITALS: BP 115/89
[2019-05-02 14:15] LABS: CREATINE KINASE MB 3.8 ng/mL (0-5.0)
[2019-05-02 15:00] VITALS: BP 94/45
[2019-05-02] MEDS: MORPHINE SULFATE 2 MG/ML SYR 1ML IV PRN (15:24)
[2019-05-02] MEDS ORDERED: GABAPENTIN300 MG PO (15:25)
[2019-05-02] MEDS ORDERED: CARVEDILOL3.125 MG PO (15:26)
[2019-05-02] MEDS ORDERED: CLOPIDOGREL75 MG PO (15:27)
[2019-05-02] MEDS ORDERED: ASPIR 8181 MG PO (15:27)
[2019-05-02] MEDS ORDERED: RAMIPRIL5 MG PO (15:28)
[2019-05-02] MEDS ORDERED: VENLAFAXINE HCL75 MG PO (15:28)
[2019-05-02] MEDS ORDERED: ATORVASTATIN CA20 MG PO (15:29)
[2019-05-02] MEDS ORDERED: FOLIC ACID1 MG PO (15:29)
[2019-05-02 15:30] VITALS: BP 102/51
[2019-05-02] MEDS ORDERED: TIZANIDINE HCL4 MG PO (15:30)
[2019-05-02] MEDS ORDERED: AMBIEN10 MG PO (15:31)
[2019-05-02] MEDS ORDERED: LEVOTHYROXINE50 MCG PO (15:37)
--- NOTE | 2019-05-02 15:38 | NUR ---
Call placed to patients pharmacy [facility] in [place], all medications verified with pharmacist Samson, all medications entered and updated
[2019-05-02] MEDS: GUAIFENESIN 600MG/DEXTROMETHORPHAN 30MG TABSR PO SCH (16:22)
[2019-05-02] MEDS: FAMOTIDINE 20 MG/2 ML VIAL IV SCH (16:59)
[2019-05-02 19:00] VITALS: BP 117/48
[2019-05-02 20:00] VITALS: BP 117/48
[2019-05-02] MEDS: TAMSULOSIN HCL 0.4 MG CAP PO SCH (20:37)
[2019-05-03] VITALS (8 sets, daily range): BP systolic 109–137; BP diastolic 46–93
[2019-05-03] MEDS: IPRATROPIUM BROMIDE 0.02% 2.5 ML NEB NEB SCH ×4 (01:00→20:05)
--- NOTE | 2019-05-03 02:17 | Consultation ---
DATE OF CONSULTATION: 05/02/2019 Urology Consultation REASON FOR CONSULTATION: Obstructive uropathy. HISTORY OF PRESENT ILLNESS: Vidal Erazo is a 63-year-old man with long-standing BPH symptomatology. He has had decreased urinary force of stream by time and feels like he incompletely empties. The patient also came in with renal failure. He had a residual noted on CT scanning. Emergency room physician attempted to place a Waterman catheter in the patient, however, the patient refused and no catheterization was performed on a permanent basis. Apparently, the nurse did straight cath, the patient got 200 mL and then removed the catheter without really obtaining a true postvoid residual. The patient denies previous urolithiasis and urinary tract infections. He has never seen a urologist. PAST MEDICAL AND SURGICAL HISTORY: 1. Coronary artery disease, status post PTCA and stent. 2. Pneumonia. 3. Status post colon resection for ruptured colon. 4. Status post colostomy takedown. 5. Hypothyroidism. 6. Asthma. 7. Hypertension. 8. Seizure disorder. 9. Anxiety. 10. Hyperlipidemia. 11. Status post right total knee arthroplasty. 12. Status post left total hip arthroplasty. 13. History of C difficile colitis. ALLERGIES: TRAMADOL. CURRENT MEDICATIONS: Please refer to the MAR. FAMILY HISTORY: Noncontributory to the active urological problems. SOCIAL HISTORY: The patient quit smoking. He currently does not smoke, use drugs, or abuse ethanol. 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 REVIEW OF SYSTEMS: Discussed as above in the history of present illness and past medical history, otherwise negative for all systems. PHYSICAL EXAMINATION: GENERAL: Very pleasant 63-year-old male, lying in bed, in no apparent distress. VITAL SIGNS: He is currently afebrile. Vital signs are currently stable. ABDOMEN: Soft. It is slightly distended and it is nonspecifically tender without costovertebral angle tenderness. For the remaining physical examination systems, please refer to the admission history and physical as well as the ERT sheet. LABORATORY STUDIES: Urine culture is pending. White blood cell count is 14,720, hemoglobin 8.6, and platelets 201,000. The patient's creatinine was elevated at 1.97, it is today about 1.27. His calcium is low at 8.0. His magnesium was normal at 2.1. His sodium is low at 126. Urinalysis significant for being relatively unremarkable. Lactic acid is elevated. CT scan of the abdomen and pelvis was performed yesterday evening, which showed colonic and gastric distention. It also showed moderate distention of the urinary bladder. The kidneys were unremarkable. ASSESSMENT: 1. Possible urinary retention. 2. Obstructive benign prostatic hyperplasia. 3. Leukocytosis. 4. Anemia. 5. Hyponatremia. 6. Presumably acute renal failure. 7. Hypocalcemia. 8. Incomplete bladder emptying. PLAN: 1. The patient refuses a Waterman catheter. 2. I will order the patient's Flomax. 3. I defer the hematological and electrolyte abnormalities to the admitting physician. 4. Ongoing urological followup is a must include as an outpatient to perform uroflowmetry and bladder ultrasonography electively as an outpatient. Hopefully, the patient will not be going to form a urinary retention and require Waterman catheter. Thank you very much for involving us in the care of your patient. We will be happy to follow him along with you as well as an outpatient. Srikanth Chiu MD [place]/MODL /[id number] cc: Vidal Francis MD
[2019-05-03] MEDS: MORPHINE SULFATE 2 MG/ML SYR 1ML IV PRN ×2 (02:30→12:50)
[2019-05-03] MEDS: DEXTROSE 5%/0.45% SOD CHL 1,000 ML IV SCH ×4 (03:58→23:08)
[2019-05-03 05:45] LABS: ANION GAP 12.3 mmol/L (8-16); BLOOD UREA NITROGEN 15 mg/dL (7-26); BUN/CREATININE RATIO 19 (6-25); CALCIUM 8.1 mg/dL (8.4-10.2); CARBON DIOXIDE 20 mmol/L (22-29); CHLORIDE 105 mmol/L (98-107); CREATININE, SERUM 0.77 mg/dL (0.72-1.25); EST GLOMERULAR FILTRATION RATE > 60 ML/MIN (60-); GLUCOSE 114 mg/dL (74-118); MAGNESIUM 2.2 MG/DL (1.3-2.1); POTASSIUM 4.3 mmol/L (3.5-5.1); SODIUM 133 mmol/L (136-145)
[2019-05-03 05:48] LABS: B-TYPE NATRIURETIC PEPTIDE2 1245.4 pg/mL (0-100)
[2019-05-03] MEDS: CEFEPIME 2 GM/NS 0.9% 100 ML 100 ML IV SCH ×2 (05:51→17:21)
[2019-05-03 06:13] LABS: FREE T4 (FREE THYROXINE) 0.87 ng/dL (0.8-1.8); THYROID STIMULATING HORMONE 3.985 uIU/mL (0.350-4.940)
[2019-05-03 06:16] LABS: FERRITIN 611.52 ng/mL (21.81-274.66)
[2019-05-03 06:28] LABS: FOLATE 15.4 ng/mL (7.0-15.4)
[2019-05-03 06:36] LABS: BASOPHILS % 0.4 % (0.0-1.0); EOSINOPHILS # (AUTO) 0.3 (0.0-0.4); HEMATOCRIT 27.2 % (38.2-49.6); HEMOGLOBIN 8.5 g/dL (14.0-18.0); LYMPHOCYTES # (AUTO) 0.3 (1.0-3.2); LYMPHOCYTES % 3.9 % (18.0-39.1); MEAN CORPUSCULAR HEMOGLOBIN 23.7 pg (28-32); MEAN CORPUSCULAR HGB CONC 31.3 g/dL (31-35); MONOCYTES # (AUTO) 0.5 (0.2-0.8); MONOCYTES % 5.4 % (4.4-11.3); NEUTROPHILS # (AUTO) 7.4 (2.1-6.9); NEUTROPHILS % 86.7 % (38.7-80.0); PLATELET COUNT 171 x10e3/uL (140-360); RED BLOOD COUNT 3.58 x10e6/uL (4.3-5.7); RED CELL DISTRIBUTION WIDTH 19.1 % (11.7-14.4)
[2019-05-03] MEDS: ALBUTEROL SULF 0.083% NEB SOLN 3 ML NEB NEB SCH ×5 (07:05→23:30)
[2019-05-03 07:48] LABS: BAND NEUTROPHILS % (MANUAL) 22 %; EOSINOPHILS % (MANUAL) 3 % (0-7); LYMPHOCYTES % (MANUAL) 1 % (19-48); NEUTROPHILS % (MANUAL) 74 % (40-74)
[2019-05-03 07:49] LABS: ANISOCYTOSIS S; ELLIPTOCYTE, RBC S; OVALOCYTES FEW; PLATELET ESTIMATE ADEQUATE; PLATELET MORPHOLOGY COMMENT NORMAL; POIKILOCYTOSIS F; RBC MORPHOLOGY COMMENT ABNORMAL
[2019-05-03] MEDS: KETOROLAC TROMETHAMINE 30 MG/ML VIAL IV PRN ×2 (07:51→23:23)
[2019-05-03] MEDS: FAMOTIDINE 20 MG/2 ML VIAL IV SCH ×2 (08:08→17:21)
[2019-05-03] MEDS: GUAIFENESIN 600MG/DEXTROMETHORPHAN 30MG TABSR PO SCH ×2 (08:08→16:35)
--- NOTE | 2019-05-03 15:03 | Diagnostic Imaging Report ---
Exam: KUB - 2 views Clinical History: Ileus Comparison: KUB of 05/02/2019, CT abdomen and pelvis of 05/01/2019 Findings: Unchanged appearance of dilated large bowel measuring up to 11.4 cm. Small amount of air in the rectum. No free air. Unchanged mild patchy opacity at the left lung base. Impression: No significant interval change in dilated air-filled large bowel measuring up to 11.4 cm. Signed by: Raheem Butcher MD on 05/03/2019 2:59 PM
--- NOTE | 2019-05-03 15:27 | NUR ---
Call placed to Dr Fulton regarding X ray results,
--- NOTE | 2019-05-03 15:34 | NUR ---
Call placed to Dr. Temple per Dr. Iwona Fulton requests regarding Xray results, orders received to repeat 2 view Xray in AM, will inform Dr. Fulton
[2019-05-03] MEDS: AZITHROMYCIN 500MG/SOD CHL 0.9% 250ML BAG IV SCH (21:34)
[2019-05-03] MEDS: TAMSULOSIN HCL 0.4 MG CAP PO SCH (21:34)
[2019-05-04] VITALS (23 sets, daily range): BP systolic 78–156; BP diastolic 54–114
--- NOTE | 2019-05-04 00:51 | NUR ---
NURSE ENTERED PATIENT'S ROOM TO FIND PATIENT COVERED IN BLOOD AND PATIENT HAD RIPPED OUT HIS IV AND STATES THAT THE BLOOD PRESSURE CUFF WAS HURTING HIS ARM AND HE DIDN'T WANT TELE WHILE HE IS SLEEPING. EDUCATED PATIENT WE NEED TO MONITOR HIS HEART WHILE HE'S SLEEPING AND HE AGREED TO WEAR IT, CLEANED PATIENT UP FROM BLOOD AND RESTARTED ANOTHER IV. WILL CONTINUE TO MONITOR.
[2019-05-04] MEDS ORDERED: ONDANSETRON HCL INJ 2MG/ML 2ML 2 MG/ML VIAL IV PRN (02:15)
[2019-05-04] MEDS: IPRATROPIUM BROMIDE 0.02% 2.5 ML NEB NEB SCH ×5 (02:50→19:00)
[2019-05-04] MEDS: ALBUTEROL SULF 0.083% NEB SOLN 3 ML NEB NEB SCH ×6 (02:50→23:00)
[2019-05-04] MEDS ORDERED: CEFDINIR300 MG PO (04:25)
[2019-05-04] MEDS ORDERED: ZITHROMAX500 MG PO (04:25)
[2019-05-04] MEDS ORDERED: FLOMAX0.4 MG PO (04:25)
[2019-05-04] MEDS ORDERED: MUCINEX DM ER1 EACH PO (04:25)
[2019-05-04] MEDS ORDERED: FERROUS SULFAT325 M1 PO (04:29)
[2019-05-04] MEDS ORDERED: ASCORBIC ACID500 MG PO (04:29)
[2019-05-04] MEDS: DEXTROSE 5%/0.45% SOD CHL 1,000 ML IV SCH (04:52)
[2019-05-04 05:41] LABS: BASOPHILS % 0.3 % (0.0-1.0); EOSINOPHILS # (AUTO) 0.3 (0.0-0.4); EOSINOPHILS % 3.7 % (0.0-6.0); HEMATOCRIT 23.5 % (38.2-49.6); HEMOGLOBIN 7.5 g/dL (14.0-18.0); LYMPHOCYTES # (AUTO) 0.6 (1.0-3.2); LYMPHOCYTES % 7.3 % (18.0-39.1); MEAN CORPUSCULAR HEMOGLOBIN 23.8 pg (28-32); MEAN CORPUSCULAR HGB CONC 31.9 g/dL (31-35); MEAN CORPUSCULAR VOLUME 74.6 fL (81-99); MONOCYTES # (AUTO) 0.4 (0.2-0.8); MONOCYTES % 5.5 % (4.4-11.3); NEUTROPHILS # (AUTO) 6.6 (2.1-6.9); NEUTROPHILS % 82.8 % (38.7-80.0); PLATELET COUNT 123 x10e3/uL (140-360); RED BLOOD COUNT 3.15 x10e6/uL (4.3-5.7); RED CELL DISTRIBUTION WIDTH 19.4 % (11.7-14.4)
[2019-05-04 05:59] LABS: ANION GAP 12.2 mmol/L (8-16); BLOOD UREA NITROGEN 19 mg/dL (7-26); BUN/CREATININE RATIO 23 (6-25); CALCIUM 8.4 mg/dL (8.4-10.2); CARBON DIOXIDE 17 mmol/L (22-29); CHLORIDE 104 mmol/L (98-107); CREATININE, SERUM 0.81 mg/dL (0.72-1.25); EST GLOMERULAR FILTRATION RATE > 60 ML/MIN (60-); GLUCOSE 132 mg/dL (74-118); MAGNESIUM 2.1 MG/DL (1.3-2.1); POTASSIUM 4.2 mmol/L (3.5-5.1); SODIUM 129 mmol/L (136-145)
[2019-05-04] MEDS: CEFEPIME 2 GM/NS 0.9% 100 ML 100 ML IV SCH (06:11)
--- NOTE | 2019-05-04 06:33 | Diagnostic Imaging Report ---
EXAM: ABDOMEN 2 VIEW, DATE: 05/04/2019 8:00 AM INDICATION: Small bowel obstruction. COMPARISON: 05/03/2019. FINDINGS: LINES/TUBES: None BOWEL PATTERN: Mild interval decrease in degree of dilatation of colon, with descending colon on measuring up to 9.2 cm in diameter. There is no stool within the cecum and ascending colon. There is also gas within the rectum and sigmoid. SOFT TISSUES: No abnormal calcifications. No mass effect. LUNG BASES: Not included BONES: No acute findings. IMPRESSION: Mild interval decrease in gaseous colonic distention. Signed by: Dr. Tera Owens M.D. on 05/04/2019 6:29 AM
[2019-05-04 07:30] LABS: BAND NEUTROPHILS % (MANUAL) 13 %; EOSINOPHILS % (MANUAL) 4 % (0-7); LYMPHOCYTES % (MANUAL) 11 % (19-48); MONOCYTES % (MANUAL) 3 % (3.4-9.0); NEUTROPHILS % (MANUAL) 69 % (40-74)
[2019-05-04 07:31] LABS: ANISOCYTOSIS SLIG; ELLIPTOCYTE, RBC SLIGHT; OVALOCYTES FEW; POIKILOCYTOSIS MODERATE
[2019-05-04 07:35] LABS: PLATELET MORPHOLOGY COMMENT NORMAL; RBC MORPHOLOGY COMMENT ABNORMAL; SCHISTOCYTES FEW
[2019-05-04 07:36] LABS: PLATELET ESTIMATE MODERATELY DECREASED
[2019-05-04] MEDS: IRON SUCROSE 100 MG in SODIUM CHLORIDE 0.9% 100 ML 100 ML IV SCH (07:59)
[2019-05-04] MEDS: FAMOTIDINE 20 MG/2 ML VIAL IV SCH ×2 (09:45→17:55)
[2019-05-04] MEDS: GUAIFENESIN 600MG/DEXTROMETHORPHAN 30MG TABSR PO SCH ×2 (09:45→16:58)
[2019-05-04] MEDS ORDERED: LORAZEPAM 0.5 MG TAB PO PRN (10:15)
[2019-05-04] MEDS ORDERED: ASPIRIN 81 MG CHEW TAB PO ONE ×3 (10:45→11:30)
[2019-05-04 10:52] LABS: ABG HCO3 11 mmol/L (23-28); ABG PCO2 24 mmHg (41-51); ABG PH 7.29 (7.31-7.41); ABG PO2 382 mmHg (80-105)
[2019-05-04] MEDS ORDERED: ENOXAPARIN SODIUM INJ 100 MG/ML SYR SC STA (10:54)
[2019-05-04] MEDS ORDERED: LEVALBUTEROL HCL SOLN NEBU 1.25 MG/3 ML NEB ONE (11:00)
[2019-05-04] MEDS ORDERED: NITROGLYCERIN 0.4 MG SUBL ONE (11:04)
[2019-05-04 11:07] LABS: BASOPHILS # (AUTO) 0.1 (0.0-0.1); BASOPHILS % 0.3 % (0.0-1.0); EOSINOPHILS # (AUTO) 0.3 (0.0-0.4); HEMATOCRIT 31.5 % (38.2-49.6); HEMOGLOBIN 9.8 g/dL (14.0-18.0); LYMPHOCYTES # (AUTO) 1.1 (1.0-3.2); LYMPHOCYTES % 7.3 % (18.0-39.1); MEAN CORPUSCULAR HGB CONC 31.1 g/dL (31-35); MONOCYTES # (AUTO) 0.8 (0.2-0.8); MONOCYTES % 5.2 % (4.4-11.3); NEUTROPHILS # (AUTO) 12.5 (2.1-6.9); NEUTROPHILS % 84.7 % (38.7-80.0); PLATELET COUNT 219 x10e3/uL (140-360); RED BLOOD COUNT 4.09 x10e6/uL (4.3-5.7); RED CELL DISTRIBUTION WIDTH 19.9 % (11.7-14.4)
[2019-05-04] MEDS ORDERED: NITROGLYCERIN/D5W 200 MCG/ML 250 ML ONE (11:07)
--- NOTE | 2019-05-04 11:11 | Diagnostic Imaging Report ---
EXAMINATION: CHEST SINGLE (PORTABLE) INDICATION: Shortness of breath COMPARISON: Abdominal radiograph of 05/03/2019 FINDINGS: LINES/TUBES:EKG leads overlie the chest. LUNGS:The lungs are moderately inflated. There is perihilar fullness and indistinctness of the pulmonary vasculature. PLEURA:No pleural effusion or pneumothorax. MEDIASTINUM:Mild cardiomegaly. BONES/SOFT TISSUES:No acute osseous injury. ABDOMEN:No free air under the diaphragm. IMPRESSION: Pulmonary edema, new compared to 05/03/2019. Mild cardiomegaly Signed by: Raheem Butcher MD on 05/04/2019 11:08 AM
--- NOTE | 2019-05-04 11:17 | NUR ---
aspirin not given patient intubated
[2019-05-04] MEDS ORDERED: FUROSEMIDE INJ 10 MG/ML 4 ML VIAL IV ONE ×2 (11:30→15:30)
[2019-05-04 11:33] LABS: ALANINE AMINOTRANSFERASE 29 IU/L (0-55); ALBUMIN 2.4 g/dL (3.5-5.0); ALBUMIN/GLOBULIN RATIO 0.5 (0.8-2.0); ALKALINE PHOSPHATASE 144 IU/L (40-150); ANION GAP 21.6 mmol/L (8-16); BLOOD UREA NITROGEN 20 mg/dL (7-26); BUN/CREATININE RATIO 22 (6-25); CALCIUM 9.1 mg/dL (8.4-10.2); CARBON DIOXIDE 11 mmol/L (22-29); CHLORIDE 102 mmol/L (98-107); CREATINE KINASE 46 IU/L (30-200); CREATININE, SERUM 0.92 mg/dL (0.72-1.25); EST GLOMERULAR FILTRATION RATE > 60 ML/MIN (60-); GLUCOSE 144 mg/dL (74-118); POTASSIUM 4.6 mmol/L (3.5-5.1); SODIUM 130 mmol/L (136-145)
--- NOTE | 2019-05-04 11:50 | NUR ---
Handoff report ICU nurse BK Martínez patient intubated made aware of new orders.
--- NOTE | 2019-05-04 12:00 | NUR ---
Rec'd patient to room 191 via bed, intubated and mechanically ventilated. Spoke with DRE Morrissey for Dr Grimes and made aware of lactic acid results.
--- NOTE | 2019-05-04 12:10 | NUR ---
ASSESSMENT: Spiritual Distress Pt's overwhelmed by 's sudden change in health. Pt's states she is "afraid" and "freaked out." Pt's expressing emotions thru words and tears. Pt's states she was "planning on taking him home today." Pt's states she has "anxiety issues" but has taken her medication this morning. Intervention: Provided calming pastoral presence and prayer. Provided unhurried empathic listening. Facilitated illness review and storytelling. Provided information on how to reach infant nanny, if needed. Outcome: Will follow as able. ERASTO DONALD [employer] Spiritual Care Department O: [phone] Pager: [phone] ([phone] number calling from)
--- NOTE | 2019-05-04 12:13 | NUR ---
Spoke with Dr Temple, made aware of patient condition and latest lactic acid.
--- NOTE | 2019-05-04 12:22 | NUR ---
RAPID RESPONSE TODAY INTUBATED AND TRANSFERED TO ICU
[2019-05-04] MEDS ORDERED: MIDAZOLAM HCL 25 MG in SODIUM CHLORIDE 0.9% 50ML 45 ML IV PRN (13:00)
[2019-05-04] MEDS ORDERED: SODIUM CHLORIDE 0.9% 1000ML 1,000 ML IV ONE (13:15)
[2019-05-04] MEDS ORDERED: SODIUM CHLORIDE 0.9% 1000ML 1,000 ML ONE (13:17)
--- NOTE | 2019-05-04 13:29 | Diagnostic Imaging Report ---
EXAM: CT Chest WITH contrast- Pulmonary Embolism Protocol INDICATION: Shortness of breath COMPARISON: Chest radiograph of earlier the same day. TECHNIQUE: Chest was scanned utilizing a multidetector helical scanner from the lung apex through the level of the diaphragm after administration of IV contrast. Thin section reconstructions were obtained with special concentration on the pulmonary arteries. Coronal and sagittal reformations were obtained. Pulmonary embolism protocol was performed. IV CONTRAST: 100 cc of Isovue 370 RADIATION DOSE: Total DLP: 1268.2 mGy*cm, including concurrent CT abdomen and pelvis. Dose modulation, iterative reconstruction, and/or weight based adjustment of the mA/kV was utilized to reduce the radiation dose to as low as reasonably achievable. COMPLICATIONS: None FINDINGS: LINES/ TUBES: Endotracheal tube terminates 1.5 cm above the edwin. PULMONARY ARTERIES: No filling defect is identified within the pulmonary arteries to the segmental level. The subsegmental pulmonary arteries are not well opacified. Main pulmonary artery measures 2.7 cm in diameter. LUNGS AND AIRWAYS: The central airways are patent. There are diffuse lower lobe predominant consolidative airspace opacities, most notably at the lower lobes and lingula consistent with massive aspiration and/or multifocal pneumonia. Smooth interlobular septal thickening and central pulmonary vascular prominence consistent with pulmonary edema. PLEURA: Small right and trace left pleural effusions. HEART AND MEDIASTINUM: The partially visualized thyroid gland appears unremarkable. Scattered prominent supraclavicular lymph nodes for example on the right measuring 12 x 11 mm (series 2 image 7) and on the left measuring 10 mm (series 2 image 15). Prominent mediastinal lymph nodes not meeting size criteria for lymphadenopathy. Right hilar lymphadenopathy measuring up to 22 x 17 mm. Left hilar lymphadenopathy up to 20 x 13 mm. Multichamber cardiomegaly. No evidence of right heart strain. Diffuse atherosclerotic calcifications involve the coronary arteries and thoracic aorta. UPPER ABDOMEN: Please see the separate dictation for the concurrently performed abdomen and pelvis CT for a detailed discussion of intra-abdominal findings. BONES: No acute osseous injury. Degenerative changes of the visualized spine. SOFT TISSUES: Bilateral axillary and subpectoral lymphadenopathy, up to 2.2 cm on the right and up to 2.1 cm on the left. IMPRESSION: 1. Bilateral multifocal consolidative airspace opacities consistent with massive aspiration and/or multifocal pneumonia. 2. No pulmonary embolism. 3. Pulmonary edema. 4. Endotracheal tube terminates 1.5 cm above the edwin. Signed by: Raheem Butcher MD on 05/04/2019 1:25 PM
--- NOTE | 2019-05-04 13:43 | Diagnostic Imaging Report ---
EXAM: CT Abdomen and Pelvis WITH intravenous contrast INDICATION: Concern for viscus perforation COMPARISON: CT abdomen pelvis of 05/01/2019 TECHNIQUE: Abdomen and pelvis were scanned utilizing a multidetector helical scanner from the lung base to the pubic symphysis after administration of IV contrast. Coronal and sagittal reformations were obtained. Routine protocol was performed. Scan was performed during arterial phase (continuation of chest CT timed for PE). IV CONTRAST: 100mL of Isovue 370 ORAL CONTRAST: None COMPLICATIONS: None RADIATION DOSE: Total DLP: 1268.2 mGy*cm (including the concurrently performed PE CT) Dose modulation, iterative reconstruction, and/or weight based adjustment of the mA/kV was utilized to reduce the radiation dose to as low as reasonably achievable. FINDINGS: LOWER THORAX: Please refer to report from concurrently performed chest CT for intrathoracic findings HEPATOBILIARY: No focal hepatic lesions. No biliary ductal dilatation. There is gallbladder wall edema and increased pericholecystic fluid, new compared to the prior study of 05/01/2019. SPLEEN: No splenomegaly. PANCREAS: No focal masses or ductal dilatation. ADRENALS: No adrenal nodules. KIDNEYS/URETERS: No hydronephrosis, stones, or solid mass lesions. PELVIC ORGANS/BLADDER: Waterman catheter in the bladder. PERITONEUM / RETROPERITONEUM: Trace free fluid in the abdomen. No free air. LYMPH NODES: Left iliac chain lymphadenopathy to 1.6 cm. Right pelvic sidewall lymphadenopathy measuring 2.7 x 1.3 cm. VESSELS: Scattered atherosclerotic calcifications of the nonaneurysmal abdominal aorta and major branches. GI TRACT: The colon is significantly less dilated compared to the prior CT and multiple prior KUBs. There is diffuse wall thickening of the entire colon and rectum measuring up to 13 mm. There is residual contrast material within the colon. No small bowel wall thickening or evidence of bowel obstruction. BONES AND SOFT TISSUES: Diffuse muscular atrophy and mild subcutaneous soft tissue edema. Status post left total hip replacement. No acute osseous injury. No suspicious lytic or blastic lesions. IMPRESSION: 1. Diffuse wall thickening of the entire colon and rectum measuring up to 13 mm this may be infectious or alternatively ischemic. Significant interval decrease in extent of large bowel dilation compared to prior CT and KUB. 2. New gallbladder wall edema and increased pericholecystic fluid. 3. Small amount of free fluid in the abdomen. No free air to suggest perforation. Signed by: Raheem Butcher MD on 05/04/2019 1:40 PM
[2019-05-04] MEDS ORDERED: IOPAMIDOL 370 MG/ML 200 ML INFUS..BTL INJ ONE (14:04)
[2019-05-04] MEDS ORDERED: SODIUM CHLORIDE 0.9% 50ML 50 ML ONE (14:04)
[2019-05-04 14:19] LABS: ABG HCO3 17 mmol/L (23-28); ABG PCO2 30 mmHg (41-51); ABG PH 7.36 (7.31-7.41); ABG PO2 184 mmHg (80-105)
[2019-05-04] MEDS ORDERED: SUCCINYLCHOLINE CHLORIDE 20 MG/ML 10ML VIAL ONE (14:31)
[2019-05-04] MEDS ORDERED: ETOMIDATE 2 MG/ML 10 ML INJ IV ONE (14:31)
[2019-05-04] MEDS ORDERED: LORAZEPAM INJ 2 MG/ML VIAL IV PRN (14:45)
--- NOTE | 2019-05-04 14:52 | Diagnostic Imaging Report ---
PROCEDURE: Non-tunneled central venous catheter placement Procedural Personnel Attending physician(s): Raheem Butcher MD Fellow physician(s): None Resident physician(s): None Advanced practice provider(s): None Pre-procedure diagnosis: Sepsis, hypotension Post-procedure diagnosis: Same Indication: Administration of intravenous medications Additional clinical history: None Complications: No immediate complications. IMPRESSION: Insertion of right-sided non-tunneled triple-lumen temporary central venous catheter. Plan: Immediate postprocedural chest radiograph. PROCEDURE SUMMARY: - Venous access with ultrasound guidance - Non-tunneled central venous catheter insertion with fluoroscopic guidance - Additional procedure(s): None PROCEDURE DETAILS: Pre-procedure Consent: Informed consent for the procedure including risks, benefits and alternatives was obtained and time-out was performed prior to the procedure. Preparation (MIPS): The site was prepared and draped using all elements of maximal sterile barrier technique including sterile gloves, sterile gown, cap, mask, large sterile sheet, sterile ultrasound probe cover, hand hygiene and cutaneous antisepsis with 2% chlorhexidine. Medical reason for site preparation exception (MIPS): Not applicable Anesthesia/sedation Level of anesthesia/sedation: No sedation Anesthesia/sedation administered by: Independent trained observer under attending supervision with continuous monitoring of the patient?s level of consciousness and physiologic status Access Local anesthesia was administered. The vessel was sonographically evaluated and determined to be patent. Real time ultrasound was used to visualize needle entry into the vessel and a permanent image was stored. Vein accessed: Internal jugular vein Access technique: 18 gauge access needle Catheter placement The access site was dilated and the catheter was placed into the vein over a wire under fluoroscopic guidance. The catheter tip location was fluoroscopically verified and a permanent image was stored.. A sterile dressing was applied. Catheter placed: Trialysis Catheter size (Indonesian): 7 Catheter length (cm): 16 Catheter flush: Normal saline Catheter securement technique: Non-absorbable suture Radiation Dose None Additional Details Additional description of procedure: None Equipment details: None Specimens removed: None Estimated blood loss (mL): Less than 10 Standardized report: [email or web address] Attestation Signer name: Raheem Butcher MD I attest that I was present for the entire procedure. I reviewed the stored images and agree with the report as written. Signed by: Raheem Butcher MD on 05/04/2019 2:49 PM
[2019-05-04] MEDS ORDERED: DEXMEDETOMIDINE HCL 200 MCG in SODIUM CHLORIDE 0.9% 50ML 48 ML IV PRN (15:00)
--- NOTE | 2019-05-04 15:08 | Diagnostic Imaging Report ---
EXAMINATION: CHEST XRAY LINE PLACEMENT INDICATION: Central line placement COMPARISON: CT of earlier the same day. Chest radiograph of earlier the same day. FINDINGS: LINES/TUBES:Interval placement of right IJ nontunneled central venous catheter terminating in the region of the superior cavoatrial junction. Endotracheal tube terminates 1 cm above the edwin. EKG leads overlie the chest. LUNGS:The lung volumes are low. There is perihilar fullness and indistinctness of the pulmonary vasculature. Again seen are extensive bilateral lower lobe predominant airspace opacities. PLEURA:Small bilateral pleural effusions. No pneumothorax. MEDIASTINUM:The cardiomediastinal silhouette appears unchanged in size and shape. BONES/SOFT TISSUES:No acute osseous injury. ABDOMEN:No free air under the diaphragm. IMPRESSION: Interval placement of right IJ central venous catheter terminating at the superior cavoatrial junction. Endotracheal tube terminates 1 cm above the edwin. Recommend withdrawing tube approximately 2 cm. Unchanged bilateral lower lobe predominant diffuse airspace opacities corresponding with diffuse consolidations on recent CT. Findings are consistent with massive aspiration and/or multifocal pneumonia. Signed by: Raheem Butcher MD on 05/04/2019 3:05 PM
[2019-05-04] MEDS ORDERED: DEXMEDETOMIDINE 200MCG/NS 50ML 50 ML IV PRN (15:15)
--- NOTE | 2019-05-04 15:25 | NUR ---
WOUND CARE CONSULTATION: THIS IS A 63 YEAR OLD MALE PATIENT ADMITTED TO [facility] FOR HYPERKALEMIA, HYPONATREMIA, AND LARGE BOWEL OBSTRUCTION. HEAD TO TOE SKIN ASSESSMENT PERFORMED. PATIENT HAS A LEFT LOWER QUADRANT WOUND FROM AN OLD HEALED SURGICAL SITE FROM A COLOSTOMY REVERSAL MEASURING 1X1.7X0.4CM, 90% PINK GRANULATION NOTED WITH MODERATE SEROUSANGEINOUS DRAINAGE NOTED. PATIENT STATED THAT HE SEES DR. BRAVO FOR WOUND CARE OUTPATIENT FOR THIS WOUND. PATIENT HAS SCATTERED AREAS OF TINY STABLE ESCHARS TO BILATERAL LOWER LEGS FROM HEALING SCRATCHES TO BLE. LABS: WBC8.47 ALB2.6 CuaE6P4.8 BLOOD CULTURE - NEGATIVE URINE CULTURE - NEGATIVE MEDICATIONS: CEFEPIME AZITHROMYCIN RECOMMENDATION: -CONTINUE ALTERNATING PRESSURE RELIEF MATTRESS. -CONTINUE BILATERAL HEEL PROTECTORS WITH PILLOW SUSPENSION. -TURN EVERY 2 HOURS AND PRN. -NURSING TO CLEAN LLQ ABDOMINAL WOUND WITH NORMAL SALINE, PAT DRY, APPLY MAXORB AG, 4X4 GAUZE AND SECURE WITH TAPE; CHANGE DAILY AND PRN. -NURSING TO APPLY LOTION TO BLE DAILY. THANK YOU FOR THIS WOUND CARE CONSULT. Addendum: 05/04/19 at 1536 by Amy Qiu RN Amended: Links added.
[2019-05-04] MEDS: MEROPENEM 1GM 100 ML IV SCH ×2 (16:18→23:10)
[2019-05-04 16:31] LABS: CREATINE KINASE MB 2.5 ng/mL (0-5.0)
--- NOTE | 2019-05-04 20:36 | Consultation ---
DATE OF CONSULTATION: Pulmonary Critical Care Consultation CHIEF COMPLAINT: Respiratory failure. HISTORY OF PRESENT ILLNESS: The patient is a 63-year-old man. He has a history of a perforated colon in 2014. He required an emergent colostomy. He had his colostomy reversed the next year in 2015. The patient also has a history of coronary artery disease and cardiomyopathy. He had a myocardial infarction and a stent placement in 2014. Since that time, he has been on Lipitor, carvedilol, and ramipril for compensated systolic congestive heart failure. The echocardiogram in the office several months ago and had a cardiac catheterization 2 weeks ago at [facility]. He came to the [facility] on May 01 with new onset lower abdominal pain. He also had a sodium of 122. Urology was consulted and a Waterman catheter was placed. He did have some urinary retention. He also had a CT scan of the abdomen and pelvis that showed some thickening and dilatation of the entire colon and rectum. He was evaluated by General Surgery and treating conservatively. This has improved on repeat CT scan. The patient was scheduled to go home today with a urinary catheter. Apparently, he did complain of some shortness of breath. He subsequently received some Ativan and then a rapid response was called. He required intubation and was transferred to the intensive care unit. Subsequent evaluation showed an elevated BNP of 1800. He also had an elevation in his white blood cell count of 14.7. PAST SURGICAL HISTORY: 1. Status post laparotomy and diverting colostomy in 2014. 2. Status post reattachment of the colon in 2015. 3. Status post cardiac stent for an acute NM in 2014. PAST MEDICAL HISTORY: 1. Coronary artery disease with prior NM. 2. History of well-compensated congestive heart failure. 3. Hypothyroidism. 4. Seizure disorder. FAMILY HISTORY: Family history is significant for diabetes. SOCIAL HISTORY: The patient is a former smoker. He is not smoking at this time. He does not use alcohol. REVIEW OF SYSTEMS: The patient is afebrile. He has no headache. He has no neck pain. He does not have chest pain. He did have some dyspnea this morning. He had some agitation. He did not have abdominal pain. There is no nausea or vomiting. He has no leg edema. PHYSICAL EXAMINATION: VITAL SIGNS: Blood pressure is now 105/60 and the pulse is 102. HEENT: Shows no facial swelling or erythema. The oropharynx is normal. LYMPHATIC: Shows no submandibular, cervical, or supraclavicular adenopathy. CARDIAC: Reveals a regular rate and rhythm with a normal S1 and S2. There are no murmurs or rubs. LUNGS: Auscultation of lungs reveals crackles in both lung casas. There is no wheezing. ABDOMEN: Soft and nontender. There is no rebound or guarding. EXTREMITIES: Shows no leg edema or calf tenderness. There is no cyanosis or clubbing. SKIN: Shows no rashes. NEUROLOGICAL: Shows no focal abnormalities. RADIOGRAPHIC DATA: Chest CT scan shows bilateral consolidative airspace opacities consistent with multifocal pneumonia. CT scan of the abdomen and pelvis shows diffuse wall thickening of the colon and rectum that has decreased compared to the prior CT and KUB. IMPRESSION: 1. Acute respiratory failure. 2. Rkhtf-[id number] systolic congestive heart failure. 3. Community-acquired pneumonia with sepsis, present on admission. 4. Partial large bowel obstruction that has improved. 5. Hyponatremia that has improved. 6. Acute kidney injury. PLAN: 1. Continue antibiotics and re-culture patient. 2. Stop intravenous fluids because of the elevated BNP and probable congestive heart failure. 3. Hold sedatives other than Precedex. 4. Continue to wean ventilator as tolerated. 5. Consider giving IV Lasix. 6. Continue Waterman catheter. 7. Monitor sodium and creatinine. 8. Case discussed with the nursing staff and family. MD KEELEY Mccann/CORNELIO /[id number]
[2019-05-04] MEDS: TAMSULOSIN HCL 0.4 MG CAP PO SCH (21:00)
[2019-05-04] MEDS ORDERED: MEROPENEM 1GRAM 1 GM in SODIUM CHLORIDE 0.9% 100 ML 100 ML IV SCH (22:00)
[2019-05-04] MEDS: AZITHROMYCIN 500MG/SOD CHL 0.9% 250ML BAG IV SCH (23:10)
--- NOTE | 2019-05-04 23:32 | Consultation ---
DATE OF CONSULTATION: Cardiology Consultation CHIEF COMPLAINT: The patient is a 63-year-old with abdominal pain. HISTORY OF PRESENT ILLNESS: The patient is a 63-year-old who came to the emergency room with nausea and episode of vomiting. The patient had a CT of the abdomen, which demonstrated a dilated colon with stool extending all the way down into the rectum. The patient has a history of having had previous perforated colon with emergency colon surgery in March of 2015. There is a known history of coronary artery disease and congestive heart failure. The patient was on the floor and became very short of breath requiring intubation. PAST MEDICAL HISTORY: Significant for: 1. Coronary artery disease. 2. Previous inferior wall myocardial infarction in 2016 with a stent placed in the right coronary artery. 3. History of poor LV function in the past with an EF of 20% in 2016 and then 35% in 2018. 4. The patient had a recent cardiac angiogram, which demonstrated a patent stent in the right coronary artery and 40% stenosis in the left anterior descending artery. The patient did not have LV gram at that time. SOCIAL HISTORY: The patient does not drink and does not smoke. MEDICATIONS: At home include atorvastatin, carvedilol, clopidogrel, ramipril and Synthroid. FAMILY HISTORY: There is a known family history of coronary artery disease. PHYSICAL EXAMINATION: GENERAL: The patient is a well-developed, well-nourished male, in no obvious distress. VITAL SIGNS: Included a temperature of 97.9, blood pressure of 110/70. HEAD, EARS, EYES, NOSE, AND THROAT: Patient's cranium was normocephalic and atraumatic. Extraocular muscles were intact. Sclerae were anicteric. Pupils were equal, round, reactive to light. There was no pallor or cyanosis of the oral mucosa. There was no erythema or edema of the throat. NECK: Supple. No jugular venous distention. No carotid bruits. CHEST: Demonstrated rhonchi bilaterally. CARDIAC: Demonstrated normal S1 and S2 with a short 2/6 systolic murmur. ABDOMEN: Demonstrated some distention, but no tenderness. EXTREMITIES: There is no clubbing, no cyanosis, and no edema. NEUROLOGIC: The patient was moving all of his extremities. IMAGING: The patient's EKG demonstrated normal sinus rhythm with some nonspecific anterior T-wave changes. IMPRESSION: The patient is a 63-year-old with a previous inferior wall myocardial infarction and a history of chronic left ventricular dysfunction, admitted with colonic distention. Suspect that the patient probably received too much fluid for his abdominal pain during the admission resulting in congestive heart failure. RECOMMENDATIONS: As follows: 1. The patient's echocardiogram will need to be repeated. 2. The patient will need to be diuresed with IV Lasix. 3. The patient will need to be supported on the ventilator until his respiratory status improves. 4. The patient will need to be continued on carvedilol and lisinopril. Bay Ellington MD DSH/MODL /[id number] cc: Bryon Grimes MD
[2019-05-04 23:47] LABS: CREATINE KINASE MB 2.1 ng/mL (0-5.0)
[2019-05-05] VITALS (23 sets, daily range): BP systolic 84–137; BP diastolic 54–87
[2019-05-05] MEDS: ALBUTEROL SULF 0.083% NEB SOLN 3 ML NEB NEB SCH ×6 (02:30→23:15)
[2019-05-05] MEDS: IPRATROPIUM BROMIDE 0.02% 2.5 ML NEB NEB SCH ×5 (02:30→23:15)
[2019-05-05 03:01] LABS: BASOPHILS # (AUTO) 0.1 (0.0-0.1); BASOPHILS % 0.6 % (0.0-1.0); EOSINOPHILS # (AUTO) 0.3 (0.0-0.4); EOSINOPHILS % 3.9 % (0.0-6.0); HEMATOCRIT 25.9 % (38.2-49.6); HEMOGLOBIN 8.5 g/dL (14.0-18.0); LYMPHOCYTES # (AUTO) 1.1 (1.0-3.2); LYMPHOCYTES % 14.5 % (18.0-39.1); MEAN CORPUSCULAR HEMOGLOBIN 23.9 pg (28-32); MEAN CORPUSCULAR HGB CONC 32.8 g/dL (31-35); MONOCYTES % 12.2 % (4.4-11.3); NEUTROPHILS # (AUTO) 5.4 (2.1-6.9); NEUTROPHILS % 68.4 % (38.7-80.0); PLATELET COUNT 148 x10e3/uL (140-360); RED BLOOD COUNT 3.56 x10e6/uL (4.3-5.7); RED CELL DISTRIBUTION WIDTH 19.5 % (11.7-14.4)
[2019-05-05 03:06] LABS: MEAN CORPUSCULAR VOLUME 72.8 fL (81-99)
[2019-05-05 03:29] LABS: ALANINE AMINOTRANSFERASE 204 IU/L (0-55); ALBUMIN 2.1 g/dL (3.5-5.0); ALBUMIN/GLOBULIN RATIO 0.5 (0.8-2.0); ALKALINE PHOSPHATASE 115 IU/L (40-150); ANION GAP 15.9 mmol/L (8-16); BLOOD UREA NITROGEN 22 mg/dL (7-26); BUN/CREATININE RATIO 25 (6-25); CALCIUM 8.4 mg/dL (8.4-10.2); CARBON DIOXIDE 18 mmol/L (22-29); CHLORIDE 102 mmol/L (98-107); CREATININE, SERUM 0.88 mg/dL (0.72-1.25); EST GLOMERULAR FILTRATION RATE > 60 ML/MIN (60-); GLUCOSE 67 mg/dL (74-118); POTASSIUM 3.9 mmol/L (3.5-5.1); SODIUM 132 mmol/L (136-145)
--- NOTE | 2019-05-05 06:27 | Diagnostic Imaging Report ---
EXAMINATION: CHEST SINGLE (PORTABLE) INDICATION: Respiratory failure. COMPARISON: 05/04/2019. FINDINGS: TUBES and LINES: ET tube with distal tip approximately 2.3 cm proximal to the edwin. Right neck central venous catheter with distal tip projected on the cavoatrial junction, unchanged. LUNGS: Interval decrease in bilateral patchy airspace disease. PLEURA: No pleural effusion or pneumothorax. HEART AND MEDIASTINUM: The cardiomediastinal silhouette is unremarkable. BONES AND SOFT TISSUES: No acute osseous lesion. Soft tissues are unremarkable. UPPER ABDOMEN: No free air under the diaphragm. IMPRESSION: Interval improvement of bilateral pulmonary edema. Signed by: Dr. Tera Owens M.D. on 05/05/2019 6:24 AM
[2019-05-05] MEDS: MEROPENEM 1GM 100 ML IV SCH ×3 (06:28→23:10)
[2019-05-05] MEDS: IRON SUCROSE 100 MG in SODIUM CHLORIDE 0.9% 100 ML 100 ML IV SCH (07:00)
[2019-05-05 08:00] LABS: CREATINE KINASE MB 1.4 ng/mL (0-5.0)
[2019-05-05] MEDS ORDERED: FUROSEMIDE INJ 10 MG/ML 4 ML VIAL IV NR (08:00)
[2019-05-05] MEDS ORDERED: ALBUMIN 25% 25GM 100ML 0.25 GM/ML BTL IV NR (08:00)
--- NOTE | 2019-05-05 08:28 | Diagnostic Imaging Report ---
Exam: KUB - 2 views Clinical History: Bowel obstruction. Comparison: Abdomen and pelvis CT of 05/04/2019, multiple prior KUBs. Findings: Nonobstructive bowel gas pattern. No free air. Residual contrast in the bladder. Status post left total hip replacement. Severe degenerative changes of the right hip joint. Degenerative changes of the lower lumbar spine. Impression: Nonobstructive bowel gas pattern. No free air. Signed by: Raheem Butcher MD on 05/05/2019 8:25 AM
[2019-05-05] MEDS: GUAIFENESIN 600MG/DEXTROMETHORPHAN 30MG TABSR PO SCH ×2 (09:00→17:00)
[2019-05-05] MEDS: FAMOTIDINE 20 MG/2 ML VIAL IV SCH ×2 (09:04→18:26)
[2019-05-05 10:28] LABS: ABG HCO3 18 mmol/L (23-28); ABG PCO2 29 mmHg (41-51); ABG PH 7.41 (7.31-7.41); ABG PO2 192 mmHg (80-105)
--- NOTE | 2019-05-05 11:04 | Progress Note ---
DATE: SUBJECTIVE: The patient is received Lasix yesterday and has diuresed substantially. His blood pressure has improved. He was evaluated by Cardiology. The patient was placed on a pressure support of 7 and a CPAP of 5. He is breathing about 18-19 times a minute with tidal volumes of 350 to 400 mL. He is in no distress. PHYSICAL EXAMINATION: VITAL SIGNS: The blood pressure is 107/60 and the heart rate is 80. Saturation is 100%. He is on pressure support of 8 with CPAP of 5. CARDIAC: Reveals regular rate and rhythm with normal S1, S2. There are no murmurs or rubs heard. LUNGS: Auscultation of lungs reveals clear breath sounds bilaterally. There is no wheezing. ABDOMEN: Soft and nontender. There is no rebound or guarding. EXTREMITIES: No leg edema or calf tenderness. There is no cyanosis or clubbing. SKIN: Shows no rashes. IMPRESSION: 1. Fvmpm-[id number] systolic congestive heart failure. 2. Pneumonia with sepsis, present on admission. 3. Acute urinary retention. 4. Acute on chronic renal failure. 5. Hyponatremia. PLAN: 1. Proceed with extubation. 2. Continue diuretics. 3. Continue to monitor sodium. 4. Out of bed as tolerated. 5. Continue Waterman catheter. Plan discussed with nursing staff, , family, Cardiology, and Urology. Greater than 35 minutes in direct critical care time. Singh Ellington MD LM[facility]/TAYOL /[id number]
--- NOTE | 2019-05-05 13:28 | NUR ---
SPOKE WITH DAGOBERTO CABRERA TODAY AND ASKED FOR LTAC ORDER SHE DOES NOT FEEL LIKE PT WOULD REQUIRE 24 DAYS IN AN LTAC STATES "HE IS RAPIDLY IMPROVING" CM TO FOLLOW EXTUBATED TODAY CXR IMPROVING
[2019-05-05] MEDS: KETOROLAC TROMETHAMINE 30 MG/ML VIAL IV PRN (20:32)
[2019-05-05] MEDS ORDERED: ACETAMINOPHEN 325 MG TAB PO PRN (21:00)
[2019-05-05] MEDS: AZITHROMYCIN 500MG/SOD CHL 0.9% 250ML BAG IV SCH (21:18)
[2019-05-05] MEDS: TAMSULOSIN HCL 0.4 MG CAP PO SCH (21:18)
[2019-05-06] VITALS (21 sets, daily range): BP systolic 92–143; BP diastolic 65–102
[2019-05-06] MEDS: ALBUTEROL SULF 0.083% NEB SOLN 3 ML NEB NEB SCH ×4 (03:00→20:10)
[2019-05-06 03:59] LABS: BASOPHILS # (AUTO) 0.1 (0.0-0.1); BASOPHILS % 0.7 % (0.0-1.0); EOSINOPHILS # (AUTO) 0.3 (0.0-0.4); EOSINOPHILS % 4.5 % (0.0-6.0); HEMATOCRIT 24.3 % (38.2-49.6); HEMOGLOBIN 7.8 g/dL (14.0-18.0); LYMPHOCYTES % 14.6 % (18.0-39.1); MEAN CORPUSCULAR HEMOGLOBIN 23.6 pg (28-32); MEAN CORPUSCULAR HGB CONC 32.1 g/dL (31-35); MEAN CORPUSCULAR VOLUME 73.4 fL (81-99); MONOCYTES # (AUTO) 1.3 (0.2-0.8); MONOCYTES % 19.2 % (4.4-11.3); NEUTROPHILS # (AUTO) 4.1 (2.1-6.9); NEUTROPHILS % 59.7 % (38.7-80.0); PLATELET COUNT 165 x10e3/uL (140-360); RED BLOOD COUNT 3.31 x10e6/uL (4.3-5.7); RED CELL DISTRIBUTION WIDTH 19.1 % (11.7-14.4)
[2019-05-06 04:26] LABS: BLOOD UREA NITROGEN 22 mg/dL (7-26); BUN/CREATININE RATIO 26 (6-25); CALCIUM 8.3 mg/dL (8.4-10.2); CARBON DIOXIDE 24 mmol/L (22-29); CHLORIDE 103 mmol/L (98-107); CREATININE, SERUM 0.85 mg/dL (0.72-1.25); EST GLOMERULAR FILTRATION RATE > 60 ML/MIN (60-); GLUCOSE 84 mg/dL (74-118); SODIUM 136 mmol/L (136-145)
[2019-05-06] MEDS: MEROPENEM 1GM 100 ML IV SCH (05:32)
--- NOTE | 2019-05-06 06:18 | Diagnostic Imaging Report ---
EXAMINATION: CHEST SINGLE (PORTABLE) INDICATION: Pulmonary edema. COMPARISON: 05/05/2019. FINDINGS: TUBES and LINES: ET tube has been removed.. Right neck central venous catheter with distal tip projected on the cavoatrial junction, unchanged. LUNGS: Bilateral central pulmonary edema appears mildly increased, which may be in part related to technical difference. PLEURA: No pleural effusion or pneumothorax. HEART AND MEDIASTINUM: The cardiomediastinal silhouette is unremarkable. BONES AND SOFT TISSUES: No acute osseous lesion. Soft tissues are unremarkable. UPPER ABDOMEN: No free air under the diaphragm. IMPRESSION: Interval removal of ET tube. Allowing for technical differences, no significant interval change in bilateral pulmonary edema. Signed by: Dr. Tera Owens M.D. on 05/06/2019 6:15 AM
[2019-05-06] MEDS ORDERED: POTASSIUM CHLORIDE 20 MEQ TAB CR PO ONE (06:30)
[2019-05-06] MEDS ORDERED: MAGNESIUM SULF 1GRAM/DEXTROSE 100 ML IV ONE (06:45)
[2019-05-06] MEDS: IPRATROPIUM BROMIDE 0.02% 2.5 ML NEB NEB SCH ×3 (07:01→20:10)
[2019-05-06 07:15] LABS: ALANINE AMINOTRANSFERASE 200 IU/L (0-55); ALBUMIN 2.5 g/dL (3.5-5.0); ALKALINE PHOSPHATASE 166 IU/L (40-150); BILIRUBIN,DIRECT 0.7 mg/dL (0.0-0.5)
[2019-05-06] MEDS: FUROSEMIDE INJ 10 MG/ML 4 ML VIAL IV SCH ×2 (08:32→17:25)
[2019-05-06] MEDS: FAMOTIDINE 20 MG/2 ML VIAL IV SCH ×2 (08:32→17:25)
[2019-05-06] MEDS: IRON SUCROSE 100 MG in SODIUM CHLORIDE 0.9% 100 ML 100 ML IV SCH (08:32)
[2019-05-06] MEDS: GUAIFENESIN 600MG/DEXTROMETHORPHAN 30MG TABSR PO SCH ×2 (08:32→17:25)
--- NOTE | 2019-05-06 09:54 | Diagnostic Imaging Report ---
PROCEDURE: X-RAY MODIFIED BARIUM SWALLOW COMPARISON: None. INDICATION: Aspiration Radiation Details: Fluoroscopy time: 2.4 minutes Cumulative dose: 13.6 mGy DISCUSSION: Fluoroscopic examination was performed in conjunction with speech pathology during swallowing a variety of thin and thick liquid consistencies. Provided images demonstrate one instance of laryngeal penetration and no aspiration. CONCLUSION: Modified barium swallow demonstrating one instance of laryngeal penetration and no aspiration. Please refer to the speech pathology report for further details. Signed by: Raheem Butcher MD on 05/06/2019 9:51 AM
--- NOTE | 2019-05-06 12:40 | NUR ---
Received home health orders. Spoke to pt and family at bedside. Pt states he has used home health previously but does not remember the name of the company. He's fine with using a company Dr. Grimes recommends. Choice letter signed for [facility], [facility], and [facility]. Copy given to pt's at bedside, with each company's contact information. Referral was faxed to [facility] and informed of possible discharge tomorrow. IMM letter delivered and explained to pt. He verbalized understanding. Signed copy placed in chart. Copy to pt's . Per RN report, possible discharge home tomorrow.
--- NOTE | 2019-05-06 13:19 | NUR ---
Received call from Phylicia from [facility]. Stated pt has been accepted and will reach out to pt to schedule a day to admit.
[2019-05-06] MEDS ORDERED: POTASSIUM CHLORIDE 20 MEQ TAB CR PO STA (13:33)
--- NOTE | 2019-05-06 15:48 | Progress Note ---
DATE: SUBJECTIVE: The patient was extubated yesterday. He feels better today. He is eager to go home. He does not have any chest pain. PHYSICAL EXAMINATION: VITAL SIGNS: The patient is afebrile. The vital signs are stable. HEENT: Shows no facial swelling or erythema. The oropharynx is normal. LYMPHATIC: Shows no submandibular, cervical or supraclavicular adenopathy. CARDIAC: Reveals a regular rate and rhythm with normal S1 and S2. There are no murmurs or rubs heard. LUNGS: Auscultation of lungs reveals clear breath sounds bilaterally. There is no wheezing. ABDOMEN: Soft, nontender. There is no rebound or guarding. EXTREMITIES: Show no leg edema or calf tenderness. There is no cyanosis or clubbing. SKIN: Shows no rashes. NEUROLOGIC: Shows no focal abnormalities. IMPRESSION: 1. Acute on chronic systolic congestive heart failure. 2. Acute urinary retention. 3. Acute on chronic renal failure. 4. Hyponatremia. 5. Pneumonia with sepsis, present on admission. PLAN: 1. Continue diuretics. 2. Replace potassium. 3. Out of bed as tolerated. 4. Continue Waterman. 5. Transfer out of ICU. 6. Possible discharge tomorrow. MD KEELEY Mccann/CORNELIO /[id number]
--- NOTE | 2019-05-06 16:11 | NUR ---
Nutrition LOS Note RD Recommendation(s) for Physician / Nutrition Prescription: continue with diet as prescribed Plan of Care: Patient has been screened and assessed for nutrition risk. At this time, the patient does not pose any nutrition risk. No further nutrition intervention is warranted at this time. Will re-evaluate if consulted by medical staff. Nutrition reason for involvement: LOS Primary Dx: acute on chronic systolic CHF, acute urinary retention PMH: CAD Ht: 70in Wt: 161.56lb BMI: 23.2kg/m2 IBW: 166lb +/- 10% RD Assessment: (05/06) 63yo M, who was admitted for urinary retention. Pt became SOB and required intubation on 05/04/2019. Pt was extubated and placed on cardiac diet. Pt reported good appetite. No complains of nausea or vomiting. LBM 05/06. Pt denied any chewing or swallowing difficulty. Weight has been stable [employer]. Current diet is appropriate and adequate. Pt has no question at this time. Malnutrition Evaluation (05/06/2019) The patient does not meet criteria for a specified degree of malnutrition at this time. Will re-evaluate at follow-up as appropriate. Diet Education Needs Assessment: Diet education not indicated. Nutrition Care Level: Low Gracy Liao, MS, RD, LD
--- NOTE | 2019-05-06 16:35 | NUR ---
RECEIVED REPORT FROM GABI IN ICU AWAINTING FOR PT TO ARRIVE FLOOR
[2019-05-06] MEDS: TAMSULOSIN HCL 0.4 MG CAP PO SCH (21:58)
--- NOTE | 2019-05-06 23:15 | NUR ---
PATIENT RESTING QUIETLY IN BED, NO DISTRESS OBSERVED. ASSISTED WITH ADLS, CALL LIGHT WITHIN EASY REACH.
[2019-05-07 00:49] VITALS: BP 96/54
--- NOTE | 2019-05-07 01:55 | NUR ---
PATIENT CONDITION STABLE WITHOUT RESPIRATORY DISTRESS, HE DENIES PAIN. DR Hernan PAREDES SAW AND EXAMINED THE PATIENT, NO NEW ORDERS RECEIVED.
[2019-05-07] MEDS: ALBUTEROL SULF 0.083% NEB SOLN 3 ML NEB NEB SCH ×3 (03:00→07:00)
[2019-05-07 04:00] VITALS: BP 124/62
--- NOTE | 2019-05-07 04:11 | NUR ---
WALKING ROUNDS MADE, PATIENT CONDITION STABLE WITHOUT ACUTE DISTRESS. HE REQUESTED COFFEE AND IT WAS GIVEN PER HIS REQUEST.
[2019-05-07 04:24] LABS: BASOPHILS % 0.7 % (0.0-1.0); EOSINOPHILS # (AUTO) 0.4 (0.0-0.4); EOSINOPHILS % 6.2 % (0.0-6.0); HEMATOCRIT 27.6 % (38.2-49.6); HEMOGLOBIN 8.8 g/dL (14.0-18.0); LYMPHOCYTES # (AUTO) 1.4 (1.0-3.2); LYMPHOCYTES % 22.1 % (18.0-39.1); MEAN CORPUSCULAR HEMOGLOBIN 23.3 pg (28-32); MEAN CORPUSCULAR HGB CONC 31.9 g/dL (31-35); MEAN CORPUSCULAR VOLUME 73.2 fL (81-99); NEUTROPHILS # (AUTO) 3.3 (2.1-6.9); PLATELET COUNT 206 x10e3/uL (140-360); RED BLOOD COUNT 3.77 x10e6/uL (4.3-5.7); RED CELL DISTRIBUTION WIDTH 18.9 % (11.7-14.4)
[2019-05-07] MEDS ORDERED: POTASSIUM CHLO10 ME1 PO (04:36)
[2019-05-07] MEDS ORDERED: LASIX40 MG PO (04:36)
[2019-05-07 04:45] LABS: ALANINE AMINOTRANSFERASE 170 IU/L (0-55); ALBUMIN 2.6 g/dL (3.5-5.0); ALBUMIN/GLOBULIN RATIO 0.7 (0.8-2.0); ALKALINE PHOSPHATASE 151 IU/L (40-150); BLOOD UREA NITROGEN 15 mg/dL (7-26); BUN/CREATININE RATIO 20 (6-25); CALCIUM 8.5 mg/dL (8.4-10.2); CARBON DIOXIDE 26 mmol/L (22-29); CHLORIDE 100 mmol/L (98-107); CREATININE, SERUM 0.75 mg/dL (0.72-1.25); EST GLOMERULAR FILTRATION RATE > 60 ML/MIN (60-); GLUCOSE 102 mg/dL (74-118); SODIUM 136 mmol/L (136-145)
--- NOTE | 2019-05-07 06:19 | Diagnostic Imaging Report ---
EXAMINATION: CHEST SINGLE (PORTABLE) INDICATION: Pulmonary edema. COMPARISON: 05/06/2019. FINDINGS: TUBES and LINES: Right neck central venous catheter with distal tip projected on the cavoatrial junction, unchanged. LUNGS: Bilateral central pulmonary edema has decreased. PLEURA: No pleural effusion or pneumothorax. HEART AND MEDIASTINUM: The cardiomediastinal silhouette is unremarkable. BONES AND SOFT TISSUES: No acute osseous lesion. Soft tissues are unremarkable. UPPER ABDOMEN: No free air under the diaphragm. IMPRESSION: Interval decrease bilateral pulmonary edema. Persistent patchy density in the right perihilar region versus superimposed infection upon clinical setting. Signed by: Dr. Tera Owens M.D. on 05/07/2019 6:15 AM
[2019-05-07] MEDS: IPRATROPIUM BROMIDE 0.02% 2.5 ML NEB NEB SCH ×2 (07:00)
[2019-05-07] MEDS ORDERED: POTASSIUM CHLORIDE 20 MEQ TAB CR PO STA (07:22)
[2019-05-07 07:52] VITALS: BP 123/68
[2019-05-07] MEDS: FUROSEMIDE INJ 10 MG/ML 4 ML VIAL IV SCH (07:52)
[2019-05-07] MEDS: IRON SUCROSE 100 MG in SODIUM CHLORIDE 0.9% 100 ML 100 ML IV SCH (07:52)
[2019-05-07] MEDS: FAMOTIDINE 20 MG/2 ML VIAL IV SCH (07:52)
[2019-05-07] MEDS: GUAIFENESIN 600MG/DEXTROMETHORPHAN 30MG TABSR PO SCH (07:53)
[2019-05-07 07:58] VITALS: BP 123/68
--- NOTE | 2019-05-07 08:26 | Progress Note ---
DATE: SUBJECTIVE: The patient feels better and is very eager to go home. PHYSICAL EXAMINATION: VITAL SIGNS: The blood pressure is 124/62, the saturation is 95%, the pulse is 88, and the respiratory rate is 18. HEENT: Shows no facial swelling or erythema. CARDIAC: Reveals regular rate and rhythm with normal S1 and S2. There are no murmurs or rubs. LUNGS: Auscultation of lungs shows decreased breath sounds at the bases. ABDOMEN: Soft and nontender. There is no rebound or guarding. EXTREMITIES: Show no leg edema. IMPRESSION: 1. Qqxvd-gm-ksbttym systolic congestive heart failure. 2. Gcvql-yp-bfzvcho renal failure. 3. Acute urinary retention. 4. Hyponatremia. 5. Pneumonia with sepsis, present on admission. PLAN: 1. The patient will go home today. 2. He will need diuretics and potassium as an outpatient. He will need to continue his Coreg as well as his afterload reduction as an outpatient. 3. He should follow up with Cardiology in 1 week. Singh Ellington MD Mau/CORNELIO /[id number]
[2019-05-07] MEDS ORDERED: POTASSIUM CHLORIDE 20 MEQ TAB CR PO SCH (09:00)
[2019-05-07] MEDS ORDERED: POTASSIUM CHLORIDE 20 MEQ TAB CR PO ONE ×2 (09:00→12:00)
[2019-05-07 09:23] LABS: ANION GAP 15.1 mmol/L (8-16); BLOOD UREA NITROGEN 14 mg/dL (7-26); BUN/CREATININE RATIO 17 (6-25); CALCIUM 9.6 mg/dL (8.4-10.2); CARBON DIOXIDE 27 mmol/L (22-29); CHLORIDE 96 mmol/L (98-107); CREATININE, SERUM 0.81 mg/dL (0.72-1.25); EST GLOMERULAR FILTRATION RATE > 60 ML/MIN (60-); GLUCOSE 124 mg/dL (74-118); POTASSIUM 3.1 mmol/L (3.5-5.1); SODIUM 135 mmol/L (136-145)
--- NOTE | 2019-05-07 10:57 | NUR ---
DISCHARGE INSTRUCTIONS AND PRESCRIPTIONS GIVEN. PT VERBALIZED UNDERSTANDING CENTRAL LINE AND LEFT FA DC PER DAGOBERTO PRESSURE DRESSING APPLIED AND TAPED LLQ WOUND DRESSING CHANGED PER WOUND CARE ORDERS LEG BAG GIVEN AND TEACHING OF HOW TO SWITCH BAG FROM LARGE TO LEG BAG GIVEN. TEACHING FOR EMPTYING . PT AND FAMILY MEMBER VERBALIZED UNDERSTANDING SET PHONE NUMBER GIVEN TO FAMILY TO CONTACT IF ANY QUESTIONS PT IS READY FOR DC AT THIS TIME
--- NOTE | 2019-05-07 11:14 | NUR ---
PT OFF UNIT TO HOME VIA WHEEL CHAIR
--- NOTE | 2019-05-07 17:53 | Discharge Summary ---
ADMISSION DIAGNOSES: 1. Community-acquired pneumonia, present on admission with sepsis. 2. Urinary retention. 3. Hyponatremia. 4. Acute kidney injury. 5. Rhabdomyolysis. 6. Large bowel obstruction. DISCHARGE DIAGNOSES: 1. Community-acquired pneumonia, present on admission with sepsis. 2. Urinary retention. 3. Hyponatremia. 4. Acute kidney injury. 5. Rhabdomyolysis. 6. Large bowel obstruction. 7. Etocf-sx-cugeulo systolic congestive heart failure with pulmonary edema. 8. Acute respiratory failure, requiring intubation. HISTORY: The patient has a history of CAD with stents, hypertension, WI, hypothyroidism, seizures, and hyperlipidemia. Although, the patient did not admit to chronic systolic CHF on admission. He apparently does have a history of chronic systolic CHF. SURGICAL HISTORY: Colon resection with colostomy and reversal, left hip surgery, right knee surgery. FAMILY HISTORY: The patient's mother and sister have diabetes. SOCIAL HISTORY: Noncontributory. HOSPITAL COURSE: A 63-year-old male came to the ER with complaints of joint pain for months. Once in the ER, he was found to have bowel obstruction and a sodium of 122. He admits to having a small bowel movement on the day of admission. He also complains of nausea and vomiting yesterday, but he is n.p.o. at the moment. He denies dysuria and retention. No cough or fever noted. On admission, the patient had a chest x-ray that showed no acute cardiopulmonary disease. CT of the brain showed no acute abnormality. CT of the abdomen showed gaseous distention and over dilation of colon, possibly related to aperistalsis segment of colon at the colonic anastomosis at the sigmoid flexure. Left lower lobe basilar pneumonia, moderate distention of urinary bladder. On 05/04, the patient had an abdominal x-ray that showed mild interval decrease in gaseous colonic extension. His sodium trended up during hospitalization and his GFR trended up as well. His CK trended down with IV fluids. The patient then began complaining of anxiety and trouble breathing, so an x-ray was done that showed pulmonary edema. A Rapid Response was called and the patient was intubated and moved to ICU. Repeat CT of the abdomen on the day of the rapid response showed bilateral multifocal consolidation airspace opacities consistent with massive aspiration and/or multifocal pneumonia. No pulmonary embolism, pulmonary edema. Diffuse wall thickening of the entire colon and rectum measuring up to 13 mm, may be infectious or ischemic. Significant interval decrease in extent of the large bowel dilation. New gallbladder wall edema and small amount of free fluid in the abdomen. At that point, Cardiology was consulted, who knew the patient very well and knew that the patient had chronic left ventricular dysfunction. According to Cardiology's note, the patient had an EF of 20% in 2016 and then 35% in 2018. The patient was extubated the following day and recovered significantly quickly. BNP trended down. He was placed on Lasix, which he was not on admission. He will be discharged home with Flomax and Waterman in place, potassium, Lasix, iron, and vitamin C. His antibiotics were completed while in the hospital. The patient understands discharge instructions and agrees to plan. He will follow up with primary care and Dr. Ellington, specialist managers in 1 to 2 weeks. Vital signs stable, patient afebrile. Dictated by Yuni Snow NP MD KRISTA Tesfaye/MODL /[id number]
== END 2019-05-07 11:00 | disposition home health service (06) | DRG 871 ==
LOC: ER 16:20 → ERHOLD 21:36 → ICU 05-02 14:06 → IMCU 05-03 03:55 → ICU 05-04 11:50 → MED/SURG 05-06 17:02
PROVIDERS: ADMIT Internal Medicine; ATTEND Internal Medicine
PROC: 5A1935Z Respiratory Ventilation, Less than 24 Consecutive Hours (ICD-10-PCS; principal; 2019-05-04)
PROC: 0BH18EZ Insertion of Endotracheal Airway into Trachea, Via Natural or Artificial Opening Endoscopic (ICD-10-PCS; 2019-05-04)
PROC: 02HV33Z Insertion of Infusion Device into Superior Vena Cava, Percutaneous Approach (ICD-10-PCS; 2019-05-04)
DX: A41.9 Sepsis, unspecified organism (principal); J18.9 Pneumonia, unspecified organism; J96.00 Acute respiratory failure, unspecified whether with hypoxia or hypercapnia; I50.23 Acute on chronic systolic (congestive) heart failure; E87.1 Hypo-osmolality and hyponatremia; N17.9 Acute kidney failure, unspecified; M62.82 Rhabdomyolysis; K56.690 Other partial intestinal obstruction; I43 Cardiomyopathy in diseases classified elsewhere; K55.9 Vascular disorder of intestine, unspecified; N40.1 Benign prostatic hyperplasia with lower urinary tract symptoms; R33.8 Other retention of urine; E87.5 Hyperkalemia; I25.10 Atherosclerotic heart disease of native coronary artery without angina pectoris; Z95.5 Presence of coronary angioplasty implant and graft; Z87.891 Personal history of nicotine dependence; E78.5 Hyperlipidemia, unspecified; E03.9 Hypothyroidism, unspecified; E83.51 Hypocalcemia; I11.0 Hypertensive heart disease with heart failure; G40.909 Epilepsy, unspecified, not intractable, without status epilepticus; J45.909 Unspecified asthma, uncomplicated; D50.9 Iron deficiency anemia, unspecified; Z78.1 Physical restraint status; Z79.02 Long term (current) use of antithrombotics/antiplatelets; Z79.82 Long term (current) use of aspirin
CPT/HCPCS: 31500; 36415; 36556; 36600; 51700; 70450; 71045; 71260; 74018; 74019; 74176; 74177; 74230; 74470; 76937; 80048; 80053; 80076; 81001; 82550; 82553; 82607; 82728; 82746; 82805; 82948; 83036; 83540; 83605; 83690; 83735; 83880; 84145; 84439; 84443; 84466; 84484; 85025; 85045; 85610; 85730; 87040; 87070; 87086; 87205; 93005; 93306; 94002; 94003; 94640; 99285; J0330; J0456; J0610; J1650; J1756; J1885; J1940; J2250; J2270; J3370; J7030; J7799; P9047; Q9967

== ENCOUNTER 2019-09-11 12:14 | Inpatient (IN) | payer MEDICARE ==
[2019-09-11] VITALS (23 sets, daily range): BP systolic 43–127; BP diastolic 19–90
[~2019-09-11] VITALS: Ht 177.8 cm; Wt 64.5 kg
[~2019-09-11 12:14] MED LIST: AMBIEN10 MG PO; ASCORBIC ACID500 MG PO; ASPIR 8181 MG PO; ATORVASTATIN CA20 MG PO; CARVEDILOL3.125 MG PO; CEFDINIR300 MG PO; CLOPIDOGREL75 MG PO; FERROUS SULFAT325 M1 PO; FLOMAX0.4 MG PO; FOLIC ACID1 MG PO; GABAPENTIN300 MG PO; LASIX40 MG PO; LEVOTHYROXINE50 MCG PO; MUCINEX DM ER1 EACH PO; POTASSIUM CHLO10 ME1 PO; RAMIPRIL5 MG PO; TIZANIDINE HCL4 MG PO; VENLAFAXINE HCL75 MG PO; ZITHROMAX500 MG PO
[2019-09-11] MEDS ORDERED: DEXTROSE 5%/0.45% SOD CHL 1,000 ML IV STA (12:15)
[2019-09-11] MEDS ORDERED: DEXTROSE 50% SYRINGE 50 ML IV STA (12:16)
[2019-09-11 13:00] LABS: BASOPHILS % 0.1 % (0.0-1.0); HEMATOCRIT 33.4 % (38.2-49.6); HEMOGLOBIN 10.7 g/dL (14.0-18.0); LYMPHOCYTES # (AUTO) 0.2 (1.0-3.2); LYMPHOCYTES % 2.2 % (18.0-39.1); MEAN CORPUSCULAR HEMOGLOBIN 26.2 pg (28-32); MEAN CORPUSCULAR VOLUME 81.9 fL (81-99); MONOCYTES # (AUTO) 0.3 (0.2-0.8); MONOCYTES % 2.5 % (4.4-11.3); NEUTROPHILS # (AUTO) 9.7 (2.1-6.9); NEUTROPHILS % 94.5 % (38.7-80.0); PLATELET COUNT 396 x10e3/uL (140-360); RED BLOOD COUNT 4.08 x10e6/uL (4.3-5.7); RED CELL DISTRIBUTION WIDTH 16.7 % (11.7-14.4)
--- NOTE | 2019-09-11 13:20 | Diagnostic Imaging Report ---
EXAMINATION: CHEST SINGLE (PORTABLE) INDICATION: AMS. COMPARISON: Chest radiograph 05/07/2019. FINDINGS: Exam is somewhat limited by portable technique, motion artifact, and soft tissue attenuation. TUBES and LINES: Interval removal of right-sided central venous catheter. LUNGS: Low lung volumes with bilateral interstitial opacities. Patchy bibasilar opacities. PLEURA: No pleural effusion or pneumothorax. HEART AND MEDIASTINUM: The cardiomediastinal silhouette is unremarkable. BONES AND SOFT TISSUES: No acute osseous lesion. Soft tissues are unremarkable. UPPER ABDOMEN: No free air under the diaphragm. IMPRESSION: Low lung volumes, cannot exclude mild pulmonary interstitial edema. Patchy bibasilar opacities, which may reflect atelectasis or aspiration in the appropriate clinical setting. Suggest follow-up chest radiograph in 6-8 weeks to assess for resolution. Signed by: Dr. Domo Easton MD on 09/11/2019 1:16 PM
[2019-09-11 13:23] LABS: ALBUMIN 2.6 g/dL (3.5-5.0); ALBUMIN/GLOBULIN RATIO 0.5 (0.8-2.0); ANION GAP 28.5 mmol/L (8-16); CALCIUM 8.7 mg/dL (8.4-10.2); CREATININE, SERUM 4.93 mg/dL (0.72-1.25)
[2019-09-11 13:30] LABS: CREATINE KINASE MB 32.5 ng/mL (0-5.0)
[2019-09-11 13:35] LABS: POTASSIUM 6.5 mmol/L (3.5-5.1)
[2019-09-11] MEDS ORDERED: SODIUM BICARBONATE 8.4% INJ 50 ML SYR IV STA ×2 (13:35→22:10)
[2019-09-11] MEDS ORDERED: ALBUTEROL SULF 0.083% NEB SOLN 3 ML NEB NEB NR (13:35)
[2019-09-11] MEDS ORDERED: SODIUM CHLORIDE 0.9% 1000ML 1,000 ML IV SCH (13:52)
[2019-09-11] MEDS ORDERED: INSULIN REGULAR, HUMAN 100 UNIT/1 ML 3ML VIAL IV NR (14:00)
[2019-09-11] MEDS ORDERED: HYDRALAZINE HCL 20 MG/ML VIAL IV NR (14:00)
[2019-09-11] MEDS ORDERED: DEXTROSE 50% SYRINGE 50 ML IV NR (14:00)
[2019-09-11] MEDS ORDERED: FUROSEMIDE INJ 10 MG/ML 4 ML VIAL IV ONE (14:00)
[2019-09-11] MEDS ORDERED: CALCIUM GLUCONATE 10% INJ 0.465 MEQ/ML VIAL IV NR (14:00)
[2019-09-11] MEDS ORDERED: SOD POLYSTYRENE SULFONATE SUSP 15 GM/60 ML BTL PO NR (14:00)
[2019-09-11] MEDS ORDERED: LEVOFLOXACIN 750MG/D5W 150ML 150 ML IV NR (14:15)
[2019-09-11 14:27] LABS: BAND NEUTROPHILS % (MANUAL) 21 %; LYMPHOCYTES % (MANUAL) 8 % (19-48); MONOCYTES % (MANUAL) 1 % (3.4-9.0); PLATELET ESTIMATE SLIGHTLY INCREASED; PLATELET MORPHOLOGY COMMENT NORMAL; RBC MORPHOLOGY COMMENT NORMAL
[2019-09-11 14:28] LABS: METAMYELOCYTES % (MANUAL) 2 % (0-0); NEUTROPHILS % (MANUAL) 68 % (40-74)
--- NOTE | 2019-09-11 14:42 | Diagnostic Imaging Report ---
EXAMINATION: Head CT HISTORY: Alteration of consciousness, unable to stay still COMPARISON: Head CT 05/01/2019 TECHNIQUE: Multidetector axial images were obtained without contrast from the foramen magnum to the vertex . The images were reconstructed using brain and bone algorithms. Thin section brain images were reformatted into coronal and sagittal planes. Image quality: Motion/streaking artifact limits the evaluation of the skull base and posterior cranial fossa. Dose modulation, iterative reconstruction, and/or weight based adjustment of the mA/kV was utilized to reduce the radiation dose to as low as reasonably achievable. FINDINGS: Parenchyma: 1. Cortical/subcortical hypodensity along the right parietal post central gyrus, no significant associated mass effect, no hemorrhage or midline shift. 2. Again noted small chronic lacunar infarct in the right lentiform nucleus and mild supratentorial white matter chronic microvascular ischemic changes 3. No mass or hemorrhage. No CT evidence of acute territorial vascular insult. Extra-axial spaces:No abnormal density. No extra-axial fluid collections Brain volume: Normal for age. Ventricles: No hydrocephalus or displacement. Arteries: No density suggestive of thrombus. Dural sinuses: No abnormal density. Extra-axial spaces: No abnormal density. Foramen magnum: No mass, Chiari malformation, or basilar invagination. Sella: No obvious mass. Paranasal/mastoid sinuses: Imaged portions unremarkable. Skull/Scalp: No lytic or blastic lesions. No fractures. IMPRESSION: 1. Age-indeterminate likely subacute ischemic infarct in the right parietal lobe without associated mass effect, hemorrhagic component or midline shift, this is new since head CT of 05/01/2019. 2. Stable mild chronic microvascular ischemic changes. Signed by: Dr. Ninfa Gamez M.D. on 09/11/2019 2:39 PM
--- NOTE | 2019-09-11 15:03 | Diagnostic Imaging Report ---
EXAM: CT Abdomen and Pelvis WITHOUT contrast INDICATION: Abnormal liver enzymes. COMPARISON: CT abdomen/pelvis 05/04/2019. TECHNIQUE: Abdomen and pelvis were scanned utilizing a multidetector helical scanner from the lung base to the pubic symphysis without administration of IV contrast. Absence of intravenous contrast decreases sensitivity for detection of focal lesions and vascular pathology. Coronal and sagittal reformations were obtained. Routine protocol was performed. IV CONTRAST: None. ORAL CONTRAST: None. RADIATION DOSE: Total DLP: 495.8 mGy*cm Estimated effective dose: (DLP x 0.015 x size factor) mSv COMPLICATIONS: None FINDINGS: Exam is somewhat limited by motion and streak artifact. LINES and TUBES: None. LOWER THORAX: Patchy dependent opacities, likely atelectasis. Extensive coronary atherosclerosis. HEPATOBILIARY: No focal hepatic lesions. No biliary ductal dilation. GALLBLADDER: No radio-opaque stones or sludge. No wall thickening. Interval resolution of inflammatory changes surrounding the gallbladder. SPLEEN: No splenomegaly. PANCREAS: No focal masses or ductal dilatation. ADRENALS: No adrenal nodules KIDNEYS/URETERS: No hydronephrosis. No cystic or solid mass lesions. No stones. GI TRACT: No evidence of bowel obstruction. The stomach is distended with air and enteric contents. Status post partial colectomy with anastomosis in left lower quadrant. Interval resolution of wall thickening involving the colon and rectum. Air-filled distention of the colon, measuring up to 6.8 cm. PELVIC ORGANS/BLADDER: Substantially distended bladder. LYMPH NODES: Slightly decreased size of right pelvic sidewall lymphadenopathy, measuring up to 2.6 x 0.9 cm, previously 2.7 x 1.3 cm. Unchanged 1.5 cm left iliac chain lymph node. VESSELS: Scattered atherosclerotic calcifications of the nonaneurysmal abdominal aorta and major branches. PERITONEUM / RETROPERITONEUM: No free air or fluid. BONES AND SOFT TISSUES: Limited evaluation secondary to motion, but there are possible acute mildly displaced fractures of the right inferior pubic ramus and left superior pubic ramus. There is a subacute healing fracture of the left inferior pubic ramus. Diffuse muscular atrophy and mild subcutaneous soft tissue edema. Status post left total hip replacement. No suspicious lytic or blastic lesions. IMPRESSION: Limited evaluation secondary to motion, but there are possible acute mildly displaced fractures of the right inferior pubic ramus and left superior pubic ramus. Subacute healing fracture of the left inferior pubic ramus. Suggest pelvic radiographs for further evaluation. Air-filled distention of the colon, measuring up to 6.8 cm without evidence of bowel obstruction. Interval resolution of wall thickening involving the colon and rectum. Substantially distended bladder. Slight interval decrease in size of right pelvic sidewall lymphadenopathy and unchanged left iliac chain lymphadenopathy, of undetermined significance. Interval resolution of inflammatory changes surrounding the gallbladder. Signed by: Dr. Domo Easton MD on 09/11/2019 2:59 PM
--- NOTE | 2019-09-11 16:17 | Diagnostic Imaging Report ---
Exam: Pelvic radiograph-1 view Clinical History: Suspected fracture on CT. Comparison: CT abdomen/pelvis dated 09/11/2019. Findings/Impression: There is a healing subacute fracture of the left inferior pubic ramus. No radiographic correlate to the possible right inferior pubic ramus fracture noted on same day CT, which may have been artifactual. There is periosteal reaction in the left superior pubic ramus/acetabulum, which may reflect healing fracture. No evidence of acute displaced fracture at this location. Left total hip arthroplasty with intact hardware. Moderate right hip degenerative changes. Atherosclerotic vascular calcifications. Signed by: Dr. Domo Easton MD on 09/11/2019 4:14 PM
--- NOTE | 2019-09-11 16:20 | NUR ---
received patient from ER, pt is lethargic and oriented to only name. vital signs were being checked by tech. bp 52/30 manually and bs 52. gave 1 amp of dextrose 50%. started NS bolus and put the pt in Trendelenburg position. rapid response was called. at 1645 the bp 64/38 and the blood sugar increased to 147, o2 sats were 97% on 2L oxygen. the ER physician arrived and started a right femoral central line triple lumen. the tech and nurse were unable to get a blood pressure reading from the dinamap and manual cuff, the patient was very agitated throughout the rapid response. the patient was transferred to [facility], at 1735 the pt's blood pressure was 107/70.
[2019-09-11] MEDS ORDERED: DEXTROSE 50% SYRINGE 50 ML IV ONE (16:31)
[2019-09-11] MEDS ORDERED: SODIUM CHLORIDE 0.9% 1000ML 1,000 ML ONE (16:41)
--- NOTE | 2019-09-11 17:35 | NUR ---
Received patient lethargic, minimally responsive to verbal stimuli, first bp cycles unable to obtain BP, third attempt BP is 107/70 HR 75, blood pressure dropped to 43/35 , call placed to MD and spoke to Dr. Alegria orders received to administer NS x1 liter and transfer to ICU, house supp notified of ICU orders, will continue to monitor
[2019-09-11 17:45] LABS: CREATINE KINASE MB 22.7 ng/mL (0-5.0)
[2019-09-11] MEDS ORDERED: SODIUM CHLORIDE 0.9% 1000ML 1,000 ML IV ONE (18:30)
--- NOTE | 2019-09-11 18:38 | NUR ---
Levophed drip started at 20 antony/mg for BP 69/50 HR 87, will continue to monitor
[2019-09-11] MEDS: NOREPINEPHRINE INJ 4MG/4ML 8 MG in DEXTROSE 5% 250ML 250 ML IV PRN (18:48)
--- NOTE | 2019-09-11 20:00 | NUR ---
Called Dr. Ellington to update MD on patient status. Notified MD on consult, read imaging and labs. Dr. Ellington said he will come in to assess patient. New orders received.
[2019-09-11] MEDS ORDERED: DEXTROSE 50% SYRINGE 50 ML IV PRN (20:30)
--- NOTE | 2019-09-11 20:40 | NUR ---
Dr. Ellington at bedside.
[2019-09-11] MEDS ORDERED: ATORVASTATIN 20 MG TAB PO SCH (21:00)
[2019-09-11] MEDS ORDERED: TAMSULOSIN HCL 0.4 MG CAP PO SCH (21:00)
[2019-09-11 21:02] LABS: BASOPHILS % 0.1 % (0.0-1.0); HEMATOCRIT 29.9 % (38.2-49.6); HEMOGLOBIN 9.6 g/dL (14.0-18.0); LYMPHOCYTES # (AUTO) 0.2 (1.0-3.2); LYMPHOCYTES % 2.4 % (18.0-39.1); MEAN CORPUSCULAR HEMOGLOBIN 26.2 pg (28-32); MEAN CORPUSCULAR HGB CONC 32.1 g/dL (31-35); MEAN CORPUSCULAR VOLUME 81.5 fL (81-99); MONOCYTES # (AUTO) 0.5 (0.2-0.8); MONOCYTES % 5.9 % (4.4-11.3); NEUTROPHILS % 88.2 % (38.7-80.0); PLATELET COUNT 316 x10e3/uL (140-360); RED BLOOD COUNT 3.67 x10e6/uL (4.3-5.7); RED CELL DISTRIBUTION WIDTH 16.6 % (11.7-14.4)
[2019-09-11] MEDS ORDERED: VANCOMYCIN 1GM/NS 250 ML 250 ML IV ONE (21:15)
[2019-09-11 21:19] LABS: ALBUMIN 2.1 g/dL (3.5-5.0); ALBUMIN/GLOBULIN RATIO 0.5 (0.8-2.0); ANION GAP 21.5 mmol/L (8-16); CALCIUM 7.7 mg/dL (8.4-10.2); CREATININE, SERUM 4.36 mg/dL (0.72-1.25); POTASSIUM 5.5 mmol/L (3.5-5.1)
--- NOTE | 2019-09-11 21:31 | NUR ---
Spoke with answering service regarding new consult for Dr. Fulton. Spoke with MD at 0130 in AM, MD aware of consult.
[2019-09-11 21:54] LABS: CLARITY,URINE CLEAR (CLEAR); COLOR,URINE YELLOW (YELLOW)
[2019-09-11 21:55] LABS: BILIRUBIN,URINE NEGATIVE (NEGATIVE); KETONES,URINE NEGATIVE (NEGATIVE); LEUKOCYTE ESTERASE ,URINE NEGATIVE (NEGATIVE); NITRITE,URINE NEGATIVE (NEGATIVE); PROTEIN,URINE DIPSTICK NEGATIVE (NEGATIVE); URINE UROBILINOGEN 0.2 mg/dL (0.2 - 1)
--- NOTE | 2019-09-11 21:57 | Consultation ---
DATE OF CONSULTATION: Pulmonary Critical Care Consultation CHIEF COMPLAINT: Low blood pressure and confusion. HISTORY OF PRESENT ILLNESS: The patient is a 64-year-old man. He has a history of chronic systolic congestive heart failure with an EF of 30% to 35%. He was hospitalized at [facility] in April with hyponatremia, a large bowel obstruction, and acute kidney injury. He also had urinary retention and pneumonia at that time. He received IV fluids initially followed by antibiotics. He improved and was discharged home. The patient now returns to the hospital with confusion. There is no documented history of fever. There is no history of nausea or vomiting. He did have some abdominal pain. CT scan in the emergency department showed a subacute parietal infarct as well as some mildly distended colon and some pelvic adenopathy. His laboratory values showed the sodium of 122 and the creatinine of 4.93. His baseline creatinine is 0.8. PAST SURGICAL HISTORY: 1. Status post laparotomy and diverting colostomy in 2014. 2. Status post reattaching the colon in 2015. 3. Status post cardiac stent for acute LA. PAST MEDICAL HISTORY: 1. Chronic systolic congestive heart failure with decreased ejection fraction. 2. Hypothyroidism. 3. History of seizure disorder. FAMILY HISTORY: Significant for diabetes. SOCIAL HISTORY: The patient is a former smoker. He is not smoking at this time. ALLERGIES: HE IS ALLERGIC TO TRAMADOL. REVIEW OF SYSTEMS: He has increased confusion. There is no headache. He has no neck pain. He is not having any chest pain. He does not have difficulty breathing. There is no cough. He has some mild abdominal distention, but no history of vomiting. He does have some urinary retention. He denies any leg edema. PHYSICAL EXAMINATION: VITAL SIGNS: The patient is afebrile. The blood pressure is now 100/70, on Levophed. Saturation is normal on 2 L. HEENT: Shows no facial swelling or erythema. CARDIAC: Reveals regular rate and rhythm with normal S1 and S2. LUNGS: Auscultation of the lungs reveals decreased breath sounds at the bases. There is no wheezing. ABDOMEN: Soft and nontender. There is no rebound or guarding. EXTREMITIES: Show no leg edema or calf tenderness. LABORATORY DATA: Sodium is 122 and the potassium is 6.5. The BUN is 55 and the creatinine is 4.9. Blood glucose is 205 and the lactic acid is 3.4. The AST is 107 and the ALT is 115. The albumin is 2.6. Hemoglobin is 10.7 and the white blood cell count is 10.2. The platelet count is 396. IMPRESSION: 1. Acute renal failure, possibly secondary to urinary obstruction. 2. Urinary tract infection with sepsis present on admission. 3. Prostatic hypertrophy. 4. Chronic systolic congestive heart failure. 5. Subacute parietal infarct. 6. Hypothyroidism. 7. Remote history of pelvic fractures. 8. Hyponatremia. 9. Elevated AST and ALT. PLAN: The patient has received IV fluids. 1. Place a urinary catheter. 2. Antibiotics. 3. Continue to monitor sodium. 4. Echocardiogram. Case discussed with Nursing and with Dr. Alegria. Singh Ellington MD [facility]/TAYOL /[id number]
[2019-09-11] MEDS ORDERED: PIPERACILLIN/TAZO 2.25 GM 50 ML IV SCH (22:00)
--- NOTE | 2019-09-11 22:00 | NUR ---
Called answering service at [phone] Fitzgerald. MD returned call at [phone]. Notified MD of labs and patient condition. New orders received and read back to .
[2019-09-11 22:02] LABS: RBC,URINE 0-5 /HPF (0-5); WBC,URINE (MAN) 0-5 /HPF (0-5)
[2019-09-11 22:03] LABS: BACTERIA,URINE FEW /HPF; EPITHELIAL CELLS,URINE RARE /LPF; MUCUS,URINE FEW (RARE)
[2019-09-11 22:23] LABS: BAND NEUTROPHILS % (MANUAL) 31 %; LYMPHOCYTES % (MANUAL) 4 % (19-48); METAMYELOCYTES % (MANUAL) 15 % (0-0); MONOCYTES % (MANUAL) 2 % (3.4-9.0); MYELOCYTES % (MANUAL) 3 % (0-0); NEUTROPHILS % (MANUAL) 45 % (40-74)
[2019-09-11 22:26] LABS: ANISOCYTOSIS SLIGHT; PLATELET ESTIMATE ADEQUATE; PLATELET MORPHOLOGY COMMENT FEW LARGE; POLYCHROMASIA FEW
[2019-09-11] MEDS: SODIUM BICARBONATE 8.4% 150 ML in DEXTROSE 5% 1,000 ML IV SCH (23:45)
[2019-09-11] MEDS ORDERED: DEXTROSE 5% 1,000 ML IV ONE (23:46)
[2019-09-11] MEDS ORDERED: SODIUM BICARBONATE 8.4% SYRING 150 ML ONE (23:46)
[2019-09-12] VITALS (63 sets, daily range): BP systolic 78–134; BP diastolic 40–90
[2019-09-12] MEDS: NOREPINEPHRINE INJ 4MG/4ML 8 MG in DEXTROSE 5% 250ML 250 ML IV PRN ×3 (00:30→23:00)
[2019-09-12] MEDS ORDERED: DEXTROSE 5% 1,000 ML IV ONE (00:36)
[2019-09-12] MEDS ORDERED: SODIUM BICARBONATE 8.4% SYRING 150 ML ONE (00:37)
[2019-09-12 05:05] LABS: BASOPHILS % 0.4 % (0.0-1.0); EOSINOPHILS % 0.2 % (0.0-6.0); HEMATOCRIT 28.9 % (38.2-49.6); HEMOGLOBIN 9.5 g/dL (14.0-18.0); LYMPHOCYTES # (AUTO) 0.1 (1.0-3.2); LYMPHOCYTES % 2.6 % (18.0-39.1); MEAN CORPUSCULAR HGB CONC 32.9 g/dL (31-35); MEAN CORPUSCULAR VOLUME 79.2 fL (81-99); MONOCYTES # (AUTO) 0.4 (0.2-0.8); MONOCYTES % 8.5 % (4.4-11.3); NEUTROPHILS # (AUTO) 4.3 (2.1-6.9); NEUTROPHILS % 86.3 % (38.7-80.0); PLATELET COUNT 291 x10e3/uL (140-360); RED BLOOD COUNT 3.65 x10e6/uL (4.3-5.7); RED CELL DISTRIBUTION WIDTH 16.5 % (11.7-14.4)
[2019-09-12 06:39] LABS: ALBUMIN 1.9 g/dL (3.5-5.0); ALBUMIN/GLOBULIN RATIO 0.5 (0.8-2.0); ANION GAP 18.4 mmol/L (8-16); CALCIUM 7.5 mg/dL (8.4-10.2); CREATININE, SERUM 3.2 mg/dL (0.72-1.25); POTASSIUM 4.4 mmol/L (3.5-5.1)
--- NOTE | 2019-09-12 07:07 | NUR ---
H&P Cc: confusion HPI: 64yoM, PCP unknown, developed confusion and agitation; Pt found to be in shock, with SHELBY and hyponatremia; Also found to have subacute stroke on imaging; Pelvic fractures are subacute to chronic. Pt remains confused; Overnight received IV antibiotics and pressors; PMH: CAP, Urinary retention, Hyponatremia, Shelby, rhabdomyolysis, large bowel obx, Systolic CHF, pulmonary edema, Acute resp failure intubated, CAD s/p stents PSHx: coronary stents, colon resecton with colostomy s/p reversal, left hip, right knee ALlergies; see emr FH/SH; ; meds; see MAR ROS: unobtainable v/s; revd PE tired appearing anicteric ns1s2 mod bs soft nt nd no e/t skin dry flat affect CONFUSED; AGITATED; labs/meds revd A/P: 64yoM Septic shock SHELBY Hyponatremia Tranasminitios Subacute stroke Pelvic fractures Acute colitis Moderate anemia JENNIFFER/AMS PLAN IV abx; IVF; hold diuretic and aceI; Renal and ID consult Follow up cultures; f/u renal U/S Prop; scd; Use Sitter cct>35mins Gordon Alegria MD, PhD.
[2019-09-12 07:13] LABS: CREATINE KINASE MB 12.6 ng/mL (0-5.0)
--- NOTE | 2019-09-12 07:59 | NUR ---
Cory Hendrix aware fo consult for Dr Nolan.
[2019-09-12] MEDS ORDERED: HALOPERIDOL LACTATE 5 MG/ML VIAL IV ONE (08:15)
[2019-09-12] MEDS ORDERED: HALOPERIDOL LACTATE 5 MG/ML VIAL ONE ×2 (08:16→13:55)
[2019-09-12] MEDS: LORAZEPAM INJ 2 MG/ML VIAL IV SCH ×3 (08:32→22:00)
[2019-09-12] MEDS: FERROUS SULFATE 325 MG TAB PO SCH (09:00)
[2019-09-12] MEDS: ASCORBIC ACID 500 MG TAB PO SCH (09:00)
--- NOTE | 2019-09-12 09:06 | Diagnostic Imaging Report ---
EXAMINATION: CHEST SINGLE (PORTABLE) INDICATION: Respiratory failure COMPARISON: Chest radiograph 09/11/2019 FINDINGS: LINES/TUBES:EKG leads overlie the chest. LUNGS:The lungs are moderately inflated. There is perihilar fullness and indistinctness of the pulmonary vasculature. PLEURA:No pleural effusion or pneumothorax. MEDIASTINUM:The cardiomediastinal silhouette appears unchanged in size and shape. BONES/SOFT TISSUES:No acute osseous injury. ABDOMEN:No free air under the diaphragm. IMPRESSION: Unchanged mild interstitial pulmonary edema. Signed by: Raheem Butcher MD on 09/12/2019 9:02 AM
[2019-09-12] MEDS ORDERED: HALOPERIDOL LACTATE 5 MG/ML VIAL IM ONE (09:10)
[2019-09-12] MEDS: SODIUM BICARBONATE 8.4% 150 ML in DEXTROSE 5% 1,000 ML IV SCH ×2 (09:18→17:34)
[2019-09-12] MEDS: PIPERACILLIN/TAZO 2.25 GM 50 ML IV SCH ×2 (10:00→17:37)
[2019-09-12] MEDS: LEVOTHYROXINE SODIUM 50 MCG TAB PO SCH (10:26)
[2019-09-12] MEDS: TAMSULOSIN HCL 0.4 MG CAP PO SCH ×2 (10:26→17:30)
[2019-09-12] MEDS: ASPIRIN 81 MG CHEW TAB PO SCH (10:26)
[2019-09-12] MEDS: VENLAFAXINE HCL 75 MG TAB PO SCH (10:26)
[2019-09-12 10:51] LABS: BAND NEUTROPHILS % (MANUAL) 10 %; EOSINOPHILS % (MANUAL) 1 % (0-7); LYMPHOCYTES % (MANUAL) 2 % (19-48); METAMYELOCYTES % (MANUAL) 6 % (0-0); MONOCYTES % (MANUAL) 6 % (3.4-9.0); MYELOCYTES % (MANUAL) 1 % (0-0); NEUTROPHILS % (MANUAL) 74 % (40-74); PLATELET ESTIMATE ADEQUATE; PLATELET MORPHOLOGY COMMENT NORMAL; RBC MORPHOLOGY COMMENT ABNORMAL
[2019-09-12 10:52] LABS: ANISOCYTOSIS SLIGHT; HYPOCHROMASIA SLIGHT; MICROCYTOSIS SLIGHT
--- NOTE | 2019-09-12 12:39 | Consultation ---
DATE OF CONSULTATION: 09/12/2019 Nephrology Consultation REASON FOR CONSULTATION: Acute kidney injury. HISTORY OF PRESENT ILLNESS: The patient is a 64-year-old male with history of chronic congestive heart failure, left ventricular ejection fraction of 30%-35%, who was admitted yesterday because of confusion that started the day prior. The patient had previously been admitted here in April with hyponatremia, large bowel obstruction, and acute kidney injury. He was thought to have urinary retention and pneumonia at that time. His kidney function had resolved and his latest serum creatinine prior to this admission was 0.8 in April 2019. Yesterday, his creatinine was elevated to 4.95, along with hyperkalemia 6.5, and metabolic acidosis. He was treated medically for the hyperkalemia and given IV sodium bicarbonate and subsequently admitted to the ICU with hypotension and started on IV Levophed drip. Later, a Waterman catheter was placed with immediate retrieval of about 1000 mL of urine, which was clear. Urinalysis was negative. His serum creatinine is down to 3.20 today with improvement in his potassium and bicarbonate level. This consultation has been requested for assistance and diagnosis and management of the acute kidney injury. Upon my interview, the patient is still somewhat disoriented and answered questions with the help of his at bedside. He denies any shortness of breath, nausea, vomiting, or diarrhea. No abdominal or flank pain at this time. No recent history of intake of NSAID or IV contrast exposure. The is not aware of any diagnosis of prostate problem or urinary retention. He is not diabetic or hypertensive. PAST MEDICAL HISTORY: As above. Hypothyroidism, seizure disorder. Status post laparotomy and diverting colostomy in 2014 with reattachment of the colon in 2016. Status post cardiac stent for acute PA. FAMILY HISTORY: Noncontributory. SOCIAL HISTORY: The patient is a former smoker. ALLERGIES: TRAMADOL. REVIEW OF SYSTEMS: Negative except as noted above in HPI. PHYSICAL EXAMINATION: GENERAL: The patient is examined in a supine position in the ICU setting. VITAL SIGNS: Blood pressure 100/70 on 13 mcg of IV Levophed. Saturation is normal on 2 L oxygen. Pulse is 93 per minute, he is afebrile. Respirations 21 per minute. SKIN: Somewhat decreased in turgor. No lesions noted. HEENT: Normocephalic, atraumatic head. Sclerae, no icterus. Oral mucosa somewhat dry tongue. CHEST: Clear to auscultation bilaterally, although breath sounds are decreased at both bases. I do not hear any wheezing or crepitations. CARDIAC: Regular rate and rhythm with normal S1, S2 without a rub or gallop. ABDOMEN: Soft and nontender. No distention. EXTREMITIES: No edema or tenderness. No cyanosis. NEUROLOGIC: The patient is awake, probably oriented to self. No obvious focal deficits. IMAGING DATA: Chest x-ray report reviewed. LABORATORY DATA: Most recent serum chemistries from this morning show a sodium up to 128 from 122 yesterday, potassium 4.4, down from 6.5 yesterday, chloride 88, bicarb up to 26 from 15 yesterday, BUN 51, creatinine down to 3.2 from 4.9 yesterday, glucose 116, total calcium 7.5 with a low albumin of 1.9. AST and ALT mildly elevated. Magnesium 1.6. Urinalysis is completely benign. Hemoglobin is 9.5, white count and platelet counts are normal. MCV is 79.2, MCHC is normal. IMPRESSION: 1. Acute kidney injury, apparently secondary to urinary obstruction at some level since renal function and urine output is much improved following placement of Waterman catheter. A CT scan of the abdomen does not however show any hydronephrosis, which would indicate an acute rather than chronic obstruction. 2. Metabolic acidosis, secondary to above. 3. Hyperkalemia, secondary to decreased renal function acutely. 4. Hyponatremia, likely dilutional. Improving. 5. Anemia, likely to be related to his kidney disease due to lack of chronicity. 6. Hypotension, etiology not clear to me, but may be related to his poor left ventricular function. RECOMMENDATIONS: 1. May continue current IV fluids with sodium bicarbonate. Watch for any dyspnea. I will decrease the IV fluid rate to 100 an hour for now. 2. Check BMP q.12 hours and adjust nature and rate of IV fluid. 3. Monitor urine output, looking for improvement in renal function. Negative urine analysis would indicate lack of any structural kidney disease. 4. Followup serum sodium level, which should improve with improving renal function. Thank you for the consultation. We will follow along and offer recommendations as needed. José Luis F Fermin, MD [facility]/CORNELIO /[id number]
[2019-09-12] MEDS ORDERED: ALBUMIN 25% 25GM 100ML 0.25 GM/ML BTL IV ONE (15:30)
[2019-09-12] MEDS ORDERED: ALBUMIN 25% 12.5GM 50ML 100 ML IV ONE (15:30)
--- NOTE | 2019-09-12 16:04 | Diagnostic Imaging Report ---
EXAM: Renal Ultrasound INDICATION: ^Acute renal failure ^[id number] ^1425 COMPARISON: None TECHNIQUE: Transverse and longitudinal images of the kidneys and bladder were obtained. FINDINGS: Right Kidney: Length: 10.7 cm Appearance: Normal echogenicity. Collecting system: No hydronephrosis Stones: None Cyst/Mass: None Left Kidney: Length: 10.9 cm Appearance: Normal echogenicity. Collecting system: No hydronephrosis Stones: None Cyst/Mass: None Bladder: Waterman catheter in the decompressed bladder. IMPRESSION: No renal calculi or hydronephrosis. Waterman catheter in the decompressed bladder. Signed by: Raheem Butcher MD on 09/12/2019 4:01 PM
[2019-09-12 16:07] LABS: CREATINE KINASE MB 5.8 ng/mL (0-5.0)
--- NOTE | 2019-09-12 17:36 | Progress Note ---
DATE: Pulmonary Critical Care Progress Note SUBJECTIVE: The patient has remained on Levophed. He is still on Levophed 25 mcg. He is receiving bicarbonate infusion for acidosis and renal failure. He required Haldol and Ativan orally this morning for confusion. PHYSICAL EXAMINATION: VITAL SIGNS: The blood pressure is now 116/82 with a saturation of 100% on 2 L. The pulse is 94 and respiratory rate is 16. The patient remains on Levophed at 25 mcg. HEENT: No facial swelling or erythema. CARDIAC: Reveals regular rate and rhythm with normal S1, S2. LUNGS: Auscultation of lungs reveals decreased breath sounds at the bases. There is no wheezing. ABDOMEN: Soft, nontender. There is no rebound or guarding. EXTREMITIES: No leg edema or calf tenderness. There is no cyanosis clubbing. SKIN: Shows no rashes. LABORATORY DATA: The white blood cell count is 4.9 and hemoglobin is 9.5. The platelet count is 291. The BUN to creatinine ratio is 51 to 3.2 and sodium is 128. The albumin is 1.9. RADIOGRAPHIC DATA: Chest x-ray shows some mild interstitial pulmonary edema. IMPRESSION: 1. Acute renal failure, probably secondary to urinary obstruction. 2. Acute urinary retention. 3. Anemia secondary to chronic blood loss. 4. Urinary tract infection with severe sepsis, present on admission. 5. Chronic systolic congestive heart failure. 6. Subacute parietal infarct. 7. Hypothyroidism. 8. Elevated AST and ALT. PLAN: 1. Additional albumin now. 2. Continue to wean Levophed as tolerated. 3. Continue current antibiotics. 4. Monitor renal function and electrolytes. 5. Evaluation for subacute stroke including carotid duplex studies, echocardiogram and MRI. 6. Case discussed with Dr. Alegria, nursing staff, the patient and family. Greater than 35 minutes spent in direct critical care time during 2 separate visits; one at 7:30 a.m. and one at 3:30 p.m. Singh Ellington MD LM/CORNELIO /[id number]
[2019-09-12 18:30] LABS: ANION GAP 17.5 mmol/L (8-16); CALCIUM 7.5 mg/dL (8.4-10.2); CREATININE, SERUM 2.25 mg/dL (0.72-1.25); POTASSIUM 3.5 mmol/L (3.5-5.1)
[2019-09-12] MEDS: ATORVASTATIN 40 MG TAB PO SCH (21:00)
[2019-09-12] MEDS ORDERED: NOREPINEPHRINE 8 MG/D5W 250 ML 250 ML ONE (23:10)
[2019-09-13] VITALS (57 sets, daily range): BP systolic 80–157; BP diastolic 41–102
[2019-09-13] MEDS: PIPERACILLIN/TAZO 2.25 GM 50 ML IV SCH ×3 (02:20→17:24)
[2019-09-13 05:26] LABS: ALBUMIN/GLOBULIN RATIO 0.6 (0.8-2.0); ANION GAP 15.3 mmol/L (8-16); CALCIUM 7.6 mg/dL (8.4-10.2); CREATININE, SERUM 1.84 mg/dL (0.72-1.25); POTASSIUM 3.3 mmol/L (3.5-5.1)
[2019-09-13] MEDS: SODIUM BICARBONATE 8.4% 150 ML in DEXTROSE 5% 1,000 ML IV SCH (05:30)
[2019-09-13] MEDS: LORAZEPAM INJ 2 MG/ML VIAL IV SCH (06:00)
[2019-09-13] MEDS: FERROUS SULFATE 325 MG TAB PO SCH (08:56)
[2019-09-13] MEDS: ASPIRIN 81 MG CHEW TAB PO SCH (08:56)
[2019-09-13] MEDS: TAMSULOSIN HCL 0.4 MG CAP PO SCH ×2 (08:56→16:25)
[2019-09-13] MEDS: VENLAFAXINE HCL 75 MG TAB PO SCH (08:56)
[2019-09-13] MEDS: LEVOTHYROXINE SODIUM 50 MCG TAB PO SCH (08:57)
[2019-09-13] MEDS: ASCORBIC ACID 500 MG TAB PO SCH (08:57)
--- NOTE | 2019-09-13 09:06 | Progress Note ---
DATE: SUBJECTIVE: The patient is still on Levophed, although weaned it down to 9 mics. He remains on a nasal cannula. He is afebrile. OBJECTIVE: VITAL SIGNS: The blood pressure is 101/41 and the pulse is 79. Respiratory rate is 15. HEENT: No facial swelling or erythema. CARDIAC: Reveals a regular rate and rhythm with normal S1, S2. There are no murmurs or rubs. LUNGS: Auscultation of lungs shows clear breath sounds bilaterally. There is no wheezing. ABDOMEN: Soft and nontender. There is no rebound or guarding. LABORATORY DATA: The sodium is 134 and the potassium is 3.3. The BUN to creatinine is 37 to 1.8. The white blood cell count is 4.9 and hemoglobin is 9.5. The platelet count is 291. RADIOGRAPHIC DATA: Chest x-ray shows mild pulmonary interstitial edema. IMPRESSION: 1. Acute renal failure secondary to urinary obstruction. 2. Prostatic hypertrophy with urinary retention. 3. Anemia secondary to chronic blood loss. 4. Persistent hypotension. 5. Chronic systolic congestive heart failure with the decreased ejection fraction. 6. Subacute parietal infarct. PLAN: 1. Continue to wean Levophed as tolerated. 2. Monitor renal function. 3. Continue antibiotics. 4. Complete evaluation for stroke. 5. Case discussed with nursing and family. 6. Greater than 35 minutes in direct critical care time. Singh Ellington MD LM/TAYOL /[id number]
[2019-09-13] MEDS ORDERED: POTASSIUM CHLORIDE 20 MEQ TAB CR PO NR (12:00)
[2019-09-13] MEDS: SODIUM CHLORIDE 0.9% 1000ML 1,000 ML IV SCH (13:06)
[2019-09-13] MEDS ORDERED: QUETIAPINE FUMARATE 25 MG TAB PO PRN (13:15)
--- NOTE | 2019-09-13 14:03 | Progress Note ---
DATE: 09/13/2019 Medicine Progress Note SUBJECTIVE: The patient was up eating his lunch with no complaints. I did speak to his , who was at bedside. I also reviewed the case with the nursing staff. No overnight events. He is much more alert according to the nursing staff. PHYSICAL EXAMINATION: VITAL SIGNS: Temperature is 97.6, pulse 80, respiratory rate is 14, blood pressure is 90/69, pulse ox 100% on 2 L nasal cannula. GENERAL: Not in acute distress. Alert and oriented x3. Cooperative on examination. HEENT: Head; normocephalic, atraumatic. Eyes; pupils are equal, round, and reactive to light bilaterally. Extraocular movements intact bilaterally. Throat; no evidence of erythema or exudates in the posterior pharynx. Has poor dentition. NECK: Supple. Good range of motion. PULMONARY: Clear to auscultation bilaterally. No wheezing, no rales, no rhonchi, no crackles appreciated. CARDIOVASCULAR: Positive S1 and S2. No murmurs, rubs, or gallops appreciated. ABDOMEN: Soft, nondistended, and nontender to palpation. Bowel sounds present. MUSCULOSKELETAL: Strength is 5/5 throughout. No evidence of any muscle deficits on examination. No weakness appreciated. NEUROLOGIC: Cranial nerves 2 through 12 grossly intact. No evidence of any neurological deficits on exam. SKIN: Intact. Warm to touch. Good cap refill. PSYCHIATRIC: Normal affect and mood. EXTREMITIES: No edema. Good range of motion throughout. LABORATORY DATA: Show white count 4.9, hemoglobin 9.5, hematocrit 28.9, platelets of 291. Chemistry; sodium 134, potassium 3.3, chloride 83, bicarbonate 39, anion gap of 15, BUN 37, creatinine is 1.84, calcium is 7.6, albumin was 2. Urinalysis negative. Hepatitis panel negative. MICROBIOLOGY: Blood cultures no growth. Urine culture, no growth. IMAGING DATA: X-rays, CT abdomen and pelvis. Right inferior pubic rami and left superior pubic rami, subacute; healing fracture of the left inferior pubic rami. CT brain, age-indeterminate, likely subacute ischemic infarct in the right parietal lobe without associated mass effect, hemorrhagic component or midline shift. This is new since compared to a CT brain on a 05/01/2019. Pelvic x-ray; there is a healing subacute fracture of the left inferior pubic rami. No evidence of acute displaced fractures seen. Renal ultrasound, right kidney 10.7 cm and left kidney 10.9 cm. No hydronephrosis or obstruction. Chest x-ray, unchanged interstitial pulmonary edema. IMPRESSION: 1. Acute kidney injury secondary to concerns for a urinary obstruction, likely secondary to benign prostatic hyperplasia. 2. Anemia secondary to chronic blood loss. 3. Acute cerebrovascular accident seen on imaging studies. 4. Chronic systolic heart failure with a decreased ejection fraction. 5. Hyponatremia with electrolyte abnormalities. 6. Acute kidney injury. PLAN: Renal function improving. Electrolytes were more stable. Sodium is improved. Nephrology is following. Continue with Waterman catheter for BPH and urinary retention for now. Electrolytes and CBC are stable. Add oral midodrine for persistent hypotension. We will get Cardiology consultation due to the congestive heart failure. As for subacute carotid infarct, I will go ahead and get an MRI of the brain, carotid ultrasound, as well as a 2D echo. Continue with anti-platelet therapy. Resume same medications with no changes. Get PT and OT evaluation. Continue with Lovenox for DVT prophylaxis. He is currently off Levophed. I spent more than 35 minutes of critical care time on this case. MD FERNANDO George/CORNELIO /[id number]
[2019-09-13] MEDS ORDERED: MIDODRINE 2.5 MG TAB PO SCH (16:00)
[2019-09-13] MEDS: MIDODRINE HCL 5 MG TABLET PO SCH (16:25)
[2019-09-13] MEDS: ENOXAPARIN 30 MG/0.3 ML SYR SC SCH (16:25)
[2019-09-13] MEDS: FINASTERIDE 5 MG TAB PO SCH (21:49)
[2019-09-13] MEDS: ATORVASTATIN 40 MG TAB PO SCH (21:49)
[2019-09-14] VITALS (39 sets, daily range): BP systolic 95–130; BP diastolic 49–97
--- NOTE | 2019-09-14 00:17 | Consultation ---
DATE OF CONSULTATION: 09/13/2019 Cardiology Consultation REASON FOR CONSULTATION: Congestive heart failure. HISTORY OF PRESENT ILLNESS: Mr. Vidal Erazo is a 64-year-old male with a primary history of hypertension, CAD status post stent to RCA, hyperlipidemia, CHF with EF of 35%, admitted on 09/12/2019 for confusion, which started the day prior to admission. The patient also reported of having hypotension at home. The patient recent hospital admission was in April for UTI and pneumonia. The patient denies having chest pains or palpitations or respiratory distress at home. PAST MEDICAL HISTORY: Hypertension, CAD, hyperlipidemia, CHF, hypothyroidism, seizure disorder, and BPH. PAST SURGICAL HISTORY: Status post laparotomy and diverting colostomy in 2014 and reattachment of colon in 2016. FAMILY HISTORY: Noncontributory. SOCIAL HISTORY: The patient is a former smoker. REVIEW OF SYSTEMS: Negative, except as noted above in HPI. PHYSICAL EXAMINATION: VITAL SIGNS: Temperature is 98, pulse is 88, BP is 110/49, respiratory rate is 19, SPO2 of 100%. SKIN: Dry and intact. No lesions noted. HEENT: Normocephalic, atraumatic head. Sclerae are nonicteric. Oral mucosa, dry. LUNGS: Clear to auscultation bilaterally. Diminished to bases. No wheezing. No crepitus. CARDIOVASCULAR: Regular rate and rhythm with normal S1 and S2. No rub or gallop. ABDOMEN: Soft, nontender, and nondistended. EXTREMITIES: No edema. No cyanosis. NEUROVASCULAR: Pulses are palpable. LABORATORY DATA: WBC 4.94, hemoglobin 9.5, hematocrit 28.9, platelets 291,000. Sodium 134, potassium 3.3, chloride 83, CO2 of 39, BUN 37, creatinine 1.84, glucose is 148. Total bilirubin 0.6. AST 43, ALT 55, ALKP 108. IMPRESSION AND PLAN: 1. Chronic congestive heart failure with EF of 35%, history of hypertension, coronary artery disease status post stent to RCA, and hyperlipidemia. EKG is normal sinus rhythm. Troponins elevated, now trending down from 0.072 to 0.63 today. Continue aspirin, Lovenox, atorvastatin. Continue to hold Lasix for now and continue telemetry monitoring. 2. Subacute parietal infarct shown in the CT of the brain. Continue ICU care. 3. Leukocytosis. Trending down 10.2 to 7.9 to 4.94 today. Continue antibiotics per Internal Medicine. 4. Acute renal failure secondary to obstruction. History of benign prostatic hyperplasia. Renal is following. Thank you for the consultation. We will continue to follow. Dictated by Eugenia Rock, STRIP DEBURRER MD ANDREAS Saez/CORNELIO /[id number]
[2019-09-14] MEDS: PIPERACILLIN/TAZO 2.25 GM 50 ML IV SCH ×3 (04:28→17:13)
[2019-09-14 05:31] LABS: BASOPHILS % 0.3 % (0.0-1.0); EOSINOPHILS # (AUTO) 0.1 (0.0-0.4); EOSINOPHILS % 1.3 % (0.0-6.0); HEMATOCRIT 24.1 % (38.2-49.6); HEMOGLOBIN 7.8 g/dL (14.0-18.0); LYMPHOCYTES # (AUTO) 0.4 (1.0-3.2); LYMPHOCYTES % 4.9 % (18.0-39.1); MEAN CORPUSCULAR HEMOGLOBIN 26.2 pg (28-32); MEAN CORPUSCULAR HGB CONC 32.4 g/dL (31-35); MEAN CORPUSCULAR VOLUME 80.9 fL (81-99); MONOCYTES # (AUTO) 0.7 (0.2-0.8); MONOCYTES % 7.4 % (4.4-11.3); NEUTROPHILS # (AUTO) 7.6 (2.1-6.9); NEUTROPHILS % 85.1 % (38.7-80.0); PLATELET COUNT 171 x10e3/uL (140-360); RED BLOOD COUNT 2.98 x10e6/uL (4.3-5.7); RED CELL DISTRIBUTION WIDTH 16.2 % (11.7-14.4)
[2019-09-14 06:01] LABS: ALBUMIN 1.8 g/dL (3.5-5.0); ALBUMIN/GLOBULIN RATIO 0.5 (0.8-2.0); ANION GAP 12.2 mmol/L (8-16); CALCIUM 8.2 mg/dL (8.4-10.2); CREATININE, SERUM 1.35 mg/dL (0.72-1.25); POTASSIUM 3.2 mmol/L (3.5-5.1)
[2019-09-14 06:16] LABS: CHOLESTEROL 73 MD/DL (0-199); TRIGLYCERIDES 126 MG/DL (0-149)
[2019-09-14 06:19] LABS: HDL CHOLESTEROL < 5 MG/DL (40-60); LDL CHOLESTEROL 43 MG/DL (60-130)
[2019-09-14] MEDS: SODIUM CHLORIDE 0.9% 1000ML 1,000 ML IV SCH (08:01)
[2019-09-14] MEDS: MIDODRINE HCL 5 MG TABLET PO SCH ×3 (08:02→16:31)
[2019-09-14] MEDS: VENLAFAXINE HCL 75 MG TAB PO SCH (08:02)
[2019-09-14] MEDS: ASPIRIN 81 MG CHEW TAB PO SCH (08:02)
[2019-09-14] MEDS: ASCORBIC ACID 500 MG TAB PO SCH (08:02)
[2019-09-14] MEDS: TAMSULOSIN HCL 0.4 MG CAP PO SCH ×2 (08:02→16:31)
[2019-09-14] MEDS: FERROUS SULFATE 325 MG TAB PO SCH (08:02)
[2019-09-14] MEDS: LEVOTHYROXINE SODIUM 50 MCG TAB PO SCH (08:02)
--- NOTE | 2019-09-14 08:35 | Diagnostic Imaging Report ---
Chest, 1 view, 09/14/2019. History: Shortness of breath. Comparison: 09/12/2019. Findings: The cardiomediastinal silhouette and pulmonary vasculature are within normal limits for a portable exam. There is no focal consolidation or pleural effusion. Linear opacities are present lung bases. There are no acute osseous or soft tissue abnormalities. Impression: Improvement in edema. Bibasilar atelectasis is present. Signed by: Kyler Blackwell on 09/14/2019 8:32 AM
--- NOTE | 2019-09-14 10:44 | Progress Note ---
DATE: SUBJECTIVE: The patient has been weaned off Levophed. His blood pressure is stable. He is not complaining of chest pain. PHYSICAL EXAMINATION: VITAL SIGNS: Stable. Saturation is 99% on 2 L. CARDIAC: Reveals a regular rate and rhythm with normal S1 and S2. LUNGS: Auscultation of lungs reveals clear breath sounds bilaterally. There is no wheezing. ABDOMEN: Soft and nontender. There is no rebound or guarding. EXTREMITIES: Shows no leg edema or calf tenderness. IMPRESSION: 1. Acute renal failure secondary to urinary obstruction. 2. Prostatic hypertrophy with urinary retention. 3. Anemia secondary to chronic blood loss. 4. Chronic systolic congestive heart failure. 5. Subacute parietal infarct. PLAN: 1. Continue current cardiac regimen. 2. Continue to monitor creatinine and urine output. 3. Urology consultation. The elevated PSA and pelvic lymphadenopathy seen on prior CT scan raise concern for prostate cancer. 4. Complete Neurology evaluation. The patient will probably need a MRI. MD KEELEY Mccann/CORNELIO /[id number]
[2019-09-14] MEDS ORDERED: POTASSIUM CHLORIDE 20 MEQ TAB CR PO ONE (11:30)
--- NOTE | 2019-09-14 14:42 | Progress Note ---
DATE: 09/14/2019 Medicine Progress Note SUBJECTIVE: The patient was working with physical therapy during my evaluation. He was alert, awake, and oriented during my eval. Vital signs were stable. PHYSICAL EXAMINATION: VITAL SIGNS: Temperature 97.8, pulse 83, respiratory rate 19, blood pressure is 125/64, pulse ox 100% on room air. GENERAL: Not in acute distress. Alert and oriented x3. Cooperative on examination. HEENT: Head; normocephalic, atraumatic. Eyes; pupils are equal, round, and reactive to light bilaterally. Extraocular movements intact bilaterally. Throat; no evidence of erythema or exudates in the posterior pharynx. Has poor dentition. NECK: Supple. Good range of motion. PULMONARY: Clear to auscultation bilaterally. No wheezing, no rales, no rhonchi, no crackles appreciated. CARDIOVASCULAR: Positive S1 and S2. No murmurs, rubs, or gallops appreciated. ABDOMEN: Soft, nondistended, and nontender to palpation. Bowel sounds present. MUSCULOSKELETAL: Strength is 5/5 throughout. No evidence of any muscle deficits on examination. No weakness appreciated. NEUROLOGIC: Cranial nerves 2 through 12 grossly intact. No evidence of any neurological deficits on exam. SKIN: Intact. Warm to touch. Good cap refill. PSYCHIATRIC: Normal affect and mood. EXTREMITIES: No edema. Good range of motion throughout. LABORATORY DATA: CBC reviewed, stable. Chemistry; sodium was 132, potassium was 3.2. Chloride 86, bicarb 37, anion gap of 12, BUN 28, creatinine is 1.35. LFTs down trending. Blood and urine cultures were negative. IMAGING STUDIES: Chest x-ray, improvement in edema. MRI is pending. Carotid ultrasound shows no evidence of any stenosis. IMPRESSION: 1. Acute kidney injury secondary to underlying urinary obstruction, likely secondary to BPH. 2. Anemia secondary to chronic blood loss. 3. Acute cerebrovascular accident seen on imaging studies. 4. Chronic systolic heart failure with the decreased ejection fraction. 5. Hyponatremia with electrolyte abnormalities. 6. Acute kidney injury. 7. Elevated PSA. PLAN: Renal function improved tremendously. Electrolytes are stable. We will replace potassium accordingly. Nephrology is following. Continue Waterman catheter for BPH and urinary retention in which Urology is following. His blood pressure is much improved. Continue with oral midodrine for now and see if I can wean him off. Cardiology has been following in relation to his CHF. As for subacute CVA seen on imaging studies, MRI of the brain is pending. Carotid ultrasound found to be negative. A 2D echo is pending. Continue anti-platelet therapy, statins. Get PT and OT evaluation. He is on Lovenox for DVT prophylaxis. Neurology has been consulted to evaluate and treat. We did consult Urology for underlying elevated PSA as well as a urinary retention with the catheter Waterman. Plan is to downgrade him to a medical tele floor. MD FERNANDO George/MODL /[id number]
--- NOTE | 2019-09-14 15:48 | Diagnostic Imaging Report ---
MRI BRAIN WO HISTORY: Acute CVA COMPARISON: Head CT 09/11/2019 TECHNIQUE: Sagittal T2, axial T2, axial T1, axial T2/FLAIR, axial gradient echo (or susceptibility weighted), coronal T2/FLAIR, and axial diffusion weighted MR images of the brain were obtained without contrast. Motion artifacts obscure some details. DISCUSSION: Scalp/bone marrow: Unremarkable. Brain sulci: Prominent. Ventricles: Compensatory dilatation. Extra-axial spaces: No masses or fluid collections. Parenchyma: Focal juxtacortical T2/FLAIR hyperintensity along the right postcentral gyrus is not associated with diffusion restriction or significant volume loss. There is no associated magnetic susceptibility. This is likely related to a subacute to chronic infarct. A few small T2/FLAIR hyperintense foci throughout the supratentorial white matter are likely chronic microvascular ischemic changes. Otherwise, no mass, hemorrhage, or acute vascular insults. Vessels: Normal flow voids in major arteries and veins. Sellar/Suprasellar region: No abnormalities. Craniocervical junction: No abnormalities. Incidental findings: None. IMPRESSION: 1. No acute intracranial abnormalities. Specifically, no evidence for acute ischemia. 2. Subacute to chronic infarct along the right postcentral gyrus. No significant mass effect or hemorrhagic conversion. 3. Mild supratentorial chronic microvascular ischemic change. 4. Mild generalized cerebral volume loss. Signed by: Dr. Donaldo Molina M.D. on 09/14/2019 3:45 PM
[2019-09-14] MEDS: ENOXAPARIN 30 MG/0.3 ML SYR SC SCH (16:31)
--- NOTE | 2019-09-14 17:39 | NUR ---
Levophed drip turned off this morning. Patient's blood pressure stable throughout the shift. Dr. Chiu consulted per renal for retention when patient was first admitted. Dr. Chiu's office called and notified of new consult. Potassium replacement ordered. Pt worked with physical therapy today. Per Dr. Cooper patient can be transferred to medical surgical floor with telemetry. Patient completed MRI today. Will continue to monitor the patient.
[2019-09-14 19:21] LABS: ANION GAP 12.5 mmol/L (8-16); BLOOD UREA NITROGEN 20 mg/dL (7-26); BUN/CREATININE RATIO 19 (6-25); CALCIUM 8.2 mg/dL (8.4-10.2); CARBON DIOXIDE 31 mmol/L (22-29); CHLORIDE 90 mmol/L (98-107); CREATININE, SERUM 1.07 mg/dL (0.72-1.25); EST GLOMERULAR FILTRATION RATE > 60 ML/MIN (60-); GLUCOSE 105 mg/dL (74-118); POTASSIUM 3.5 mmol/L (3.5-5.1); SODIUM 130 mmol/L (136-145)
[2019-09-14] MEDS: ATORVASTATIN 40 MG TAB PO SCH (21:12)
[2019-09-14] MEDS: FINASTERIDE 5 MG TAB PO SCH (21:12)
[2019-09-15] VITALS (16 sets, daily range): BP systolic 127–140; BP diastolic 55–73
[2019-09-15] MEDS: PIPERACILLIN/TAZO 2.25 GM 50 ML IV SCH ×3 (01:57→17:39)
[2019-09-15] MEDS: SODIUM CHLORIDE 0.9% 1000ML 1,000 ML IV SCH (04:42)
[2019-09-15 05:08] LABS: BASOPHILS % 0.2 % (0.0-1.0); EOSINOPHILS # (AUTO) 0.1 (0.0-0.4); EOSINOPHILS % 2.2 % (0.0-6.0); HEMATOCRIT 26.7 % (38.2-49.6); HEMOGLOBIN 8.6 g/dL (14.0-18.0); LYMPHOCYTES # (AUTO) 0.6 (1.0-3.2); LYMPHOCYTES % 9.2 % (18.0-39.1); MEAN CORPUSCULAR HEMOGLOBIN 25.7 pg (28-32); MEAN CORPUSCULAR HGB CONC 32.2 g/dL (31-35); MEAN CORPUSCULAR VOLUME 79.7 fL (81-99); MONOCYTES % 15.1 % (4.4-11.3); NEUTROPHILS # (AUTO) 4.7 (2.1-6.9); NEUTROPHILS % 72.5 % (38.7-80.0); PLATELET COUNT 166 x10e3/uL (140-360); RED BLOOD COUNT 3.35 x10e6/uL (4.3-5.7); RED CELL DISTRIBUTION WIDTH 16.4 % (11.7-14.4)
[2019-09-15 05:38] LABS: ALANINE AMINOTRANSFERASE 45 IU/L (0-55); ALBUMIN 1.8 g/dL (3.5-5.0); ALBUMIN/GLOBULIN RATIO 0.5 (0.8-2.0); ALKALINE PHOSPHATASE 179 IU/L (40-150); ANION GAP 12.3 mmol/L (8-16); BLOOD UREA NITROGEN 17 mg/dL (7-26); BUN/CREATININE RATIO 17 (6-25); CALCIUM 8.2 mg/dL (8.4-10.2); CARBON DIOXIDE 27 mmol/L (22-29); CHLORIDE 93 mmol/L (98-107); CREATININE, SERUM 1.03 mg/dL (0.72-1.25); EST GLOMERULAR FILTRATION RATE > 60 ML/MIN (60-); GLUCOSE 84 mg/dL (74-118); POTASSIUM 3.3 mmol/L (3.5-5.1); SODIUM 129 mmol/L (136-145)
--- NOTE | 2019-09-15 06:12 | Consultation ---
DATE OF CONSULTATION: 09/14/2019 Urology consultation REASON FOR CONSULTATION: Urinary retention. HISTORY OF PRESENT ILLNESS: Vidal Erazo is a 64-year-old man who was admitted with presumably acute renal failure. The patient was found the urinary retention for "a lot of urine." The exact volume obtained upon initial catheterization was unknown to the patient's current nurse. The patient denies any previous urological evaluation. The patient was admitted with mental status changes and upon initial evaluation, he was found to have the above-mentioned diagnoses. He was also found to have a moderate amount of rhabdomyolysis. The patient was admitted with history of congestive heart failure. PAST MEDICAL SURGICAL HISTORY: 1. Chronic systolic congestive heart failure with an ejection fraction of 30% to 35%. 2. History of hyponatremia. 3. History of bowel obstruction. 4. History of urinary retention in April of 2019. 5. Subacute parietal cerebrovascular infarct. 6. Status post laparotomy and diverting colostomy in 2014. 7. Status post colostomy takedown in 2015. 8. Status post cardiac stenting with PTCA for acute myocardial infarction. 9. Hypothyroidism. 10. History of seizure disorder. FAMILY HISTORY: Noncontributory to the active urological problems. SOCIAL HISTORY: The patient has quit smoking. He does not currently smoke, drink alcohol, ethanol or use any drugs. 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 ALLERGIES: TRAMADOL. REVIEW OF SYSTEMS: Discussed as above in the history of present illness, past medical history, otherwise negative for all systems. PHYSICAL EXAMINATION: GENERAL: Elderly male, lying in bed, in no apparent distress. He is currently afebrile. VITAL SIGNS: Currently stable. ABDOMEN: Soft, nondistended, nontender without costovertebral tenderness, kidneys not palpable without hepatosplenomegaly. No obvious evidence of hernia. GENITOURINARY: Testes descended bilaterally. Testes are bilaterally slightly atrophic. The patient has a normal male phallus with normal meatus without any lesion. Digital rectal examination is deferred at the present time. For the remaining physical examination systems, please refer to the admission history and physical on the chart. LABORATORY STUDIES: Urine culture is negative. White blood cell count is 8960, hemoglobin 7.8, platelets are 171,000. The patient's sodium is low at 130, calcium is 8.2. On presentation, the patient's creatinine was 4.93 and potassium was elevated at 6.5. Urinalysis is unremarkable. CT scan of the abdomen and pelvis was done on September 11 by the emergency room a CT scan diagnosed some pelvic lymphadenopathy, possible pelvic fractures and a "substantially distended bladder." ASSESSMENT: 1. Urinary retention diagnosed by CT scanning and exact volume is not available to me at the present time. 2. Acute renal failure that improved. 3. Atrophic testes. 4. Anemia. 5. Hyponatremia. 6. Hypocalcemia. 7. Hyperkalemia, improved. PLAN: 1. I defer the electrolyte and hematological abnormalities to the admitting physician as well as the renal service. 2. Leave the current Waterman catheter in place at the present time. 3. When the patient is in usual state of health, he needs to follow up in the office for urodynamic study. 4. The patient has potential for neurogenic bladder. This will be followed up as well. 5. The patient may have urinary tract infection. We will plan on following this up in the future. Thank you much for involving us in care of your patient. We will follow along with you as well as outpatient. Srikanth Chiu MD [place]/MODL /[id number] cc: MD Vidal Holman MD
[2019-09-15] MEDS: MIDODRINE HCL 5 MG TABLET PO SCH ×3 (08:00→15:21)
[2019-09-15] MEDS: TAMSULOSIN HCL 0.4 MG CAP PO SCH ×2 (08:37→16:01)
[2019-09-15] MEDS: FERROUS SULFATE 325 MG TAB PO SCH (08:37)
[2019-09-15] MEDS: LEVOTHYROXINE SODIUM 50 MCG TAB PO SCH (08:37)
[2019-09-15] MEDS: POTASSIUM CHLORIDE 20 MEQ TAB CR PO SCH (08:37)
[2019-09-15] MEDS: VENLAFAXINE HCL 75 MG TAB PO SCH (08:37)
[2019-09-15] MEDS: ASPIRIN 81 MG CHEW TAB PO SCH (08:37)
[2019-09-15] MEDS: ASCORBIC ACID 500 MG TAB PO SCH (08:37)
--- NOTE | 2019-09-15 09:33 | NUR ---
Portia. RECOMMENDS SNF MED SURG ORDERS CALL PLACED TO DR SHABAZZ FOR SNF ORDER
--- NOTE | 2019-09-15 11:09 | Progress Note ---
DATE: SUBJECTIVE: The patient is feeling better. His blood pressure is improved. He is off pressors. He was seen in consultation by Neurology and by Urology yesterday. PHYSICAL EXAMINATION: VITAL SIGNS: Stable. HEENT: No facial swelling or erythema. CARDIAC: Reveals a regular rate and rhythm with normal S1 and S2. There are no murmurs or rubs. LUNGS: Auscultation of lungs reveals clear breath sounds bilaterally. There is no wheezing. ABDOMEN: Soft, nontender. There is no rebound or guarding. EXTREMITIES: No leg edema or calf tenderness. There is no cyanosis or clubbing. SKIN: No rashes. NEUROLOGICAL: No focal abnormalities. LABORATORY DATA: White blood cell count is 6.4 and the hemoglobin is 8.6. The platelet count is 166. The BUN to creatinine ratio is 17 to 1.03. The sodium is 129. Potassium is 3.3. Albumin is 5.3 and the albumin is 1.8. IMPRESSION: 1. Acute renal failure secondary to urinary obstruction. 2. Prostatic hypertrophy with urinary retention. 3. Elevated PSA of 6.8. 4. Subacute cerebrovascular accident. 5. Chronic systolic congestive heart failure. PLAN: 1. Continue current cardiac regimen. 2. Continue current antibiotics. 3. Await completion of Urology evaluation. Singh Ellington MD [facility]/MODL /[id number]
[2019-09-15] MEDS: ENOXAPARIN 30 MG/0.3 ML SYR SC SCH (16:01)
--- NOTE | 2019-09-15 17:33 | NUR ---
Per dr. Chiu pt will be discharged with calderon in place. Dr. Cooper ordered consult for Dr. Galaviz, Dr. Galaviz's office called and message left about new consult. ordered removal of femoral CVC, central line was removed. Dr. Cooper informed of low sodium. Renal ordered potassium replacement. Patient's blood pressure has been stable throughout shift, Dr. Cooper aware and d/c midodrine. Patient does not appear to be in any distress at this time, will continue to monitor.
[2019-09-15 20:55] LABS: BASOPHILS % 0.8 % (0.0-1.0); EOSINOPHILS # (AUTO) 0.2 (0.0-0.4); EOSINOPHILS % 3.5 % (0.0-6.0); HEMATOCRIT 28.3 % (38.2-49.6); HEMOGLOBIN 9.1 g/dL (14.0-18.0); LYMPHOCYTES # (AUTO) 0.9 (1.0-3.2); LYMPHOCYTES % 16.3 % (18.0-39.1); MEAN CORPUSCULAR HGB CONC 32.2 g/dL (31-35); MEAN CORPUSCULAR VOLUME 80.9 fL (81-99); NEUTROPHILS # (AUTO) 3.1 (2.1-6.9); NEUTROPHILS % 58.5 % (38.7-80.0); PLATELET COUNT 161 x10e3/uL (140-360); RED CELL DISTRIBUTION WIDTH 16.4 % (11.7-14.4)
[2019-09-15 21:12] LABS: ANION GAP 13.5 mmol/L (8-16); BLOOD UREA NITROGEN 16 mg/dL (7-26); BUN/CREATININE RATIO 17 (6-25); CARBON DIOXIDE 23 mmol/L (22-29); CHLORIDE 96 mmol/L (98-107); CREATININE, SERUM 0.93 mg/dL (0.72-1.25); EST GLOMERULAR FILTRATION RATE > 60 ML/MIN (60-); GLUCOSE 76 mg/dL (74-118); POTASSIUM 3.5 mmol/L (3.5-5.1); SODIUM 129 mmol/L (136-145)
[2019-09-15] MEDS: ATORVASTATIN 40 MG TAB PO SCH (21:37)
[2019-09-15] MEDS: FINASTERIDE 5 MG TAB PO SCH (21:37)
[2019-09-16] VITALS (17 sets, daily range): BP systolic 134–152; BP diastolic 58–83
--- NOTE | 2019-09-16 00:35 | Progress Note ---
DATE: 09/15/2019 Medicine Progress Note SUBJECTIVE: The patient is doing actually much better. But according to the nursing staff, the patient is not ambulating much, seems to be kind of maximum assistance. I did discuss with him about inpatient rehab, but he seems to not be very interested with that option. He is otherwise tolerating diet well. He is alert, awake, oriented on examination. PHYSICAL EXAMINATION: VITAL SIGNS: Temperature is 98.4, pulse 85, respiratory rate is 14, blood pressure is 132/55, pulse ox 97% on room air. LABORATORY FINDINGS: Show white count 6.4, hemoglobin 8.6, hematocrit 26.7, platelets of 166. Chemistry sodium 129, potassium is 3.3 chloride 93, bicarb 27, anion gap 12. BUN 17, creatinine is 1, glucose 84, calcium 8.2. LFTs within normal range. Albumin is 1.8. Urinalysis negative. Microbiology blood and urine cultures were negative. IMAGING STUDIES: Carotid Dopplers were negative for any stenosis. MRI of the brain shows subacute to chronic infarct along the right post central gyrus. No significant mass effect or hemorrhagic conversion. No acute intracranial abnormality. Physically, no evidence for acute ischemia. PHYSICAL EXAMINATION: GENERAL: Not in acute distress oriented x3. Cooperative on examination. HEENT: Head is normocephalic and atraumatic. Eyes; pupils are equal, round, and reactive to light bilaterally. Extraocular movements intact bilaterally. Throat; no evidence of any erythema or exudates in the posterior pharynx. Has poor dentition. NECK: Supple. Good range of motion. PULMONARY: Clear to auscultation bilaterally. No wheezing, rales, or rhonchi. No crackles appreciated. CARDIOVASCULAR: Positive S1 and S2. No murmurs, rubs, or gallops appreciated. ABDOMEN: Soft, nondistended, and nontender to palpation. Bowel sounds present. MUSCULOSKELETAL: Strength is 5/5 throughout. No evidence of any muscle deficits on examination. No weakness appreciated. NEUROLOGIC: Cranial nerve 2 through 12 grossly intact. No evidence of any neurological deficits on exam. SKIN: Intact. Warm to touch. Good cap refill. PSYCHIATRIC: Normal affect and mood. EXTREMITIES: No edema. Good range of motion throughout. IMPRESSION: 1. Acute kidney injury secondary to urinary obstruction, likely due to BPH and possibly neurogenic bladder-continue with Waterman catheter upon discharge per Urology recommendations. 2. Anemia secondary to chronic blood loss. 3. Acute cerebrovascular accident seen on MRI. 4. Chronic systolic heart failure with a low EF. 5. Hyponatremia with electrolyte abnormalities. 6. Acute kidney injury. 7. Elevated PSA. PLAN: At this time, as per Urology recommendations the patient will continue with the Waterman catheter with outpatient followup in terms of his PSA as well as his possible neurogenic bladder. He will be discharged with a Waterman catheter. His hemoglobin is stable. We will continue with anti-platelet therapy statins. Neurology was consulted, evaluated the patient. No further workup needed. For the heart failure he will continue with cardioprotective medications. I will go ahead and add Lasix 20 mg daily to his regimen. I also consulted with Physical Medicine rehab as the patient may benefit from inpatient rehab if the patient accepts so. MRI of the brain noted. Carotid ultrasound was noted to be negative. Continue working with PT and OT. He is on Lovenox for DVT prophylaxis. Consultants in Neurology, urology, Pulmonary Critical Care and Nephrology. Otherwise, we will continue same plan of care and monitor closely. MD FERNANDO George/MODL /[id number]
[2019-09-16] MEDS: PIPERACILLIN/TAZO 2.25 GM 50 ML IV SCH ×3 (01:59→19:00)
[2019-09-16] MEDS: VENLAFAXINE HCL 75 MG TAB PO SCH (09:43)
[2019-09-16] MEDS: ASPIRIN 81 MG CHEW TAB PO SCH (09:43)
[2019-09-16] MEDS: FERROUS SULFATE 325 MG TAB PO SCH (09:43)
[2019-09-16] MEDS: FUROSEMIDE INJ 10 MG/ML 2 ML VIAL IV SCH (09:43)
[2019-09-16] MEDS: TAMSULOSIN HCL 0.4 MG CAP PO SCH ×2 (09:44→17:13)
[2019-09-16] MEDS: LEVOTHYROXINE SODIUM 50 MCG TAB PO SCH (09:44)
[2019-09-16] MEDS: ASCORBIC ACID 500 MG TAB PO SCH (09:44)
[2019-09-16] MEDS: POTASSIUM CHLORIDE 20 MEQ TAB CR PO SCH (09:44)
--- NOTE | 2019-09-16 11:13 | NUR ---
ORDER REC'D YESTERDAY FOR ACUTE REHAB AND DR SHEILA SULTANA EVALUATION CM SPOKE WITH PT AND HE ASKED THAT I CALL HIS TO DISCUSS WITH HER CM LEFT VOICE MAIL ON 'S CELL PHONE-NO CALL BACK THIS AM IN ROOM WITH PT WE SPOKE ABOUT REHAB CONSULT, PT'S STROKE AND BENEFITS OF ACUTE REHAB PT IS VERY RELUCTANT TO GO; STATES HE WANTS TO GO HOME FOR ARNALDO AND SIT IN HIS RECLINER PT'S REQUESTING THAT PT GO TO REHAB BUT PT RELUCTANT DR SULTANA TO SEE PT TODAY PT AND AWARE THAT PT WILL GO HOME WITH A FERNANDES WILL NEED HOME HEALTH FOR P.T./OT AND NURSING IF CHOOSES TO GO HOME. CM TO FOLLOW
--- OUTSIDE RECORDS SUMMARY | 2019-09-16 12:22 | XMS REPORT | Summary of Care ---
Author Author Patti Cannon M.A. Unknown Address Unknown Phone Unavailable Care Team Providers Care Pulverizer Name Role Phone SAROJ CASAREZ N.P. Unavailable Unavailable LISA Nolan, CLAY Unavailable Unavailable OSWALDO CASEY MD Unavailable Unavailable LISA ESCUDERO LA, CLAY León Unavailable Unavailable Unavailable Unavailable Functional [...] 1 TABLET DAILY * Refills: 0 Active Voltaren 1 % Transdermal Gel APPLY TO UPPER EXTREMITIES, 2 GM OF GEL TO AFFECTED AREA 4 TIMES DAILY. DO NOT APPLY MORE THAN 8 GM DAILY TO ANY ONE AFFECTED JOINT. * Quantity: 1 Refills: 0 HERMELINDO N.SAROJ Schwartz * Start : 25-Feb-2014 Active 100 GM Tube (3 Tubes) Lidoderm 5 % External Patch USE DIRECTED ON PACKAGE * Refills: 0 Active MethylPREDNISolone (Owen) 4 MG TABS TAKE DIRECTED. * Quantity: 1 Refills: 0 CASAREZ N.P., SAROJ * Start : 07-Dec-2014 Active Cyclobenzaprine HCl - 10 MG Oral Tablet TAKE 1 TABLET AT BEDTIME. * Quantity: 14 Refills: 0 CASAREZ N.P., SAROJ * Start : 07-Dec-2014 Active traMADol-Acetaminophen 37.5-325 MG Oral Tablet TAKE 1 TABLET 3 TIMES DAILY as needed * Quantity: 30 Refills: 0 CASAREZ N.P., SAROJ * Start : 07-Dec-2014 Active methylPREDNISolone 4 MG Oral Tablet Therapy Pack TAKE DIRECTED * Quantity: 1 Refills: 0 CLAY GONZALEZ M.D. * Start : 02-Jun-2019 End : 09-Jun-2019 Active 21 Tablet Pack Allergies and Adverse Reactions Name Dates Details [...] to report Results Date Description Value Details [id number] [U] XRAY HIP UNILATERAL WITH PELVIS WHEN PERFORMED 1 VW LEFT [id number] XR HIP UNILATERAL WITH PELVIS WHEN PERFORMED 1 VW LEFT Images acquired, not reported on this accession number. Plan of Care Name Dates Details Planned Observations Planned Goals not documented Planned Encounters Appointment; CLAY GONZALEZ M.D. On: 01-Sep-2019 13:45 Interventions Provided Medication Changes* methylPREDNISolone 4 MG Oral Tablet Therapy Pack - Start Labs/Procedures/Imaging* [U] XRAY HIP UNILATERAL WITH PELVIS WHEN PERFORMED 1 VW LEFT [id number]; Done: 02 Jun 2019 Instructions Name Dates Details Instructions not documented [...] Diagnosis: Problem not documented On: 06-Oct-2018 14:15 Appointment; CLAY GONZALEZ M.D. Encounter Diagnosis: Problem not documented On: 02-Jun-2019 15:15
--- NOTE | 2019-09-16 13:14 | Progress Note ---
DATE: 09/16/2019 Nephrology Progress Note SUBJECTIVE: Followup of acute kidney injury, secondary to obstruction. Renal function is now back to normal. Indwelling Waterman in place per Urology. He is also on Flomax. OBJECTIVE: GENERAL: The patient appears comfortable. VITAL SIGN: Stable. Blood pressure 144/78, pulse 96 per minute, he is afebrile. Room air oxygen saturation is 98%. NECK: Supple without jugular venous distention. CHEST: Auscultation bilaterally, reveals good air entry. No crepitations or wheezing. CARDIOVASCULAR: Shows S1, S2 without rub or gallop. ABDOMEN: Soft, nondistended. EXTREMITIES: Without pitting edema or cyanosis. NEUROLOGIC: Alert and oriented. MEDICATIONS: Reviewed in NOV. Started on Lasix 20 mg daily by primary physician for congestive heart failure. LABORATORY DATA: Labs hemoglobin 9.1, white count and platelets are normal. Creatinine 0.93, BUN 16, potassium 3.5, on replacement. Sodium still low at 129. Total calcium 8. IMPRESSION: 1. Acute kidney injury, secondary to obstructive uropathy, likely BPH and possibly neurogenic bladder. Resolved with Waterman drainage. We will continue same as outpatient until seen by his urologist. Continue Flomax. 2. Mild, asymptomatic hyponatremia, likely dilutional. We will discontinue IV normal saline. Check urine sodium, which might be affected by Lasix and urine osmolality. 3. Hypokalemia, on daily replacement. Should improve with increased oral intake of diet. José Luis Fermin MD [facility]/MODL /[id number]
--- NOTE | 2019-09-16 15:21 | NUR ---
PT AMBULATED 180 FEET TODAY WITH ROLLING WALKER AND NO LOSS OF BALANCE PLAN DC HOME TOMORROW PER DR SHABAZZ
--- NOTE | 2019-09-16 16:04 | Progress Note ---
DATE: SUBJECTIVE: The patient feels better. He has less cough and less congestion. He is not having any fever. He has less confusion. PHYSICAL EXAMINATION: VITAL SIGNS: The patient is afebrile. The blood pressure is 141/73, saturation is 100%, and the pulse is 87. HEENT: Shows no facial swelling or erythema. CARDIAC: Reveals a regular rate and rhythm with normal S1 and S2. There are no murmurs or rubs. LUNGS: Auscultation of lungs reveals clear breath sounds bilaterally. There is no wheezing. ABDOMEN: Soft and nontender. There is no rebound or guarding. EXTREMITIES: Shows no leg edema or calf tenderness. There is no cyanosis or clubbing. SKIN: Shows no rashes. NEUROLOGICAL: Shows no focal abnormalities. IMPRESSION: 1. Acute renal failure secondary to urinary obstruction. 2. Chronic systolic congestive heart failure. 3. Subacute cerebrovascular accident. 4. Elevated PSA. PLAN: 1. Complete antibiotics. 2. Physical therapy. 3. Possible discharge home with urinary catheter. Singh Ellington MD [facility]/MODL /[id number]
--- NOTE | 2019-09-16 16:42 | NUR ---
PT SINGED CHOICE TO RESUME HOME HEALTH WITH [facility], FAXED CLINICALS TO [facility].
[2019-09-16] MEDS: ENOXAPARIN 30 MG/0.3 ML SYR SC SCH (17:13)
--- NOTE | 2019-09-16 17:16 | NUR ---
received report from BK Abdalla; awaiting pt's arrival to room 109, transfer from ICU room 189.
--- NOTE | 2019-09-16 17:23 | NUR ---
pt arrived to room 109; pt awake, alert, no signs of distress.
[2019-09-16] MEDS ORDERED: SODIUM CHLORIDE 0.9% 250ML 250 ML ONE (18:31)
--- NOTE | 2019-09-16 19:41 | Consultation ---
DATE OF CONSULTATION: 09/15/2019 Neurology consultation REASON FOR CONSULTATION: Seen the patient for possible TIA and history of subacute stroke on CT scan. HISTORY OF PRESENT ILLNESS: The patient comes to attention. He was admitted initially for sepsis . The patient denies any focal neurological deficits in the recent past. Denies numbness, weakness, visual disturbance, or dysphagia. The patient says that he is doing well. No acute physiological or psychiatric complaints. REVIEW OF SYSTEMS: Negative other than some mild nausea. Remaining 14-point review of systems is negative. PHYSICAL EXAMINATION: VITAL SIGNS: Stable. He is afebrile. His heart is 76, blood pressure 142/88. HEENT: Extraocular movements are intact. Face is symmetric. Tongue is midline. Speech clear. ABDOMEN: Soft, nontender. PULMONARY: Clear to auscultation. NEUROLOGIC: Moves upper and lower extremities to command. No ataxia noted. LOWER EXTREMITIES: No rashes or lymphadenopathy noted. ASSESSMENT AND PLAN: I am seeing the patient with possible transient ischemic attack with history of stroke on exam, history of acute stroke on CT scan, no acute neurological deficits or changes. He is currently on a statin and aspirin. He did have ejection fraction of 30% which required anticoagulation if deemed appropriate per Cardiology. will need outpatient followup after he was discharged. MD RAFI RAMIREZ/CORNELIO /[id number]
[2019-09-16] MEDS: FINASTERIDE 5 MG TAB PO SCH (21:15)
[2019-09-16] MEDS: ATORVASTATIN 40 MG TAB PO SCH (21:15)
--- NOTE | 2019-09-16 23:31 | Progress Note ---
DATE: 09/16/2019 Medicine Progress Note SUBJECTIVE: The patient has agreed to being discharged home today. He worked with physical therapy, walked more than 180 feet using a walker. He refuses to go to snf. He refuses to go to inpatient rehab. LABORATORY FINDINGS: Show white count 5.2, hemoglobin 9.1, hematocrit is 28, platelets of 161. Chemistry; sodium 129, potassium 3.5, chloride 96. Rest of electrolytes are stable. MICROBIOLOGY: All negative cultures. IMAGING STUDIES: Nothing new. PHYSICAL EXAMINATION: VITAL SIGNS: Temperature is 98.2, pulse 89, respiratory rate is 11, blood pressure 147/83, and pulse ox 99% on room air. GENERAL: Not in acute distress, alert and oriented x3. Cooperative on examination. HEENT: Head is normocephalic and atraumatic. Eyes; pupils are equal, round, and reactive to light bilaterally. Extraocular movements intact bilaterally. NECK: Supple. Good range of motion. Throat; no evidence of any erythema or exudates in the posterior pharynx. Has poor dentition. PULMONARY: Clear to auscultation bilaterally. No wheezing, rales, or rhonchi. No crackles appreciated. CARDIOVASCULAR: Positive S1 and S2. No murmurs, rubs, or gallops appreciated. ABDOMEN: Soft, nondistended, nontender to palpation. Bowel sounds present. MUSCULOSKELETAL: Strength is 5/5 throughout. No evidence of any muscle deficits on examination. No weakness appreciated. NEUROLOGICAL: Cranial nerves 2 through 12 are grossly intact. No evidence of any neurological deficits on exam. SKIN: Intact. Warm to touch. Good cap refill. PSYCHIATRIC: Normal affect and mood. EXTREMITIES: No edema. Good range of motion throughout. IMPRESSION: 1. Acute kidney injury secondary to urinary obstruction from underlying benign prostatic hyperplasia, possibly neurogenic bladder-continue with Waterman catheter upon discharge per Urology recommendations. 2. Anemia of chronic blood loss. 3. Acute cerebrovascular accident seen on MRI. 4. Chronic systolic heart failure with a low ejection fraction of 30%. 5. Hyponatremia, chronically with electrolyte abnormalities. 6. Elevated PSA. 7. Acute kidney injury. PLAN: At this time, the patient will continue with the Waterman catheter upon discharge and will follow up with Urology as an outpatient for the PSA as well as the neurogenic bladder. Rest of electrolytes and his hemoglobin are stable. Cardiology is following with his heart failure and he is on cardioprotective medications. As far as neurological status, he is back to normal baseline. He is ambulating well more than 180 feet with a walker. He will be treated with anti-platelet therapy as well as a statin, and Neurology recommendations are noted. He refuses to go to inpatient rehab as well as snf facility. Instead, the patient will likely be discharged home with home PT, OT, and home health. We will provide him with a walker as well. Likely be discharged tomorrow. MD FERNANDO George/MODL /[id number]
[2019-09-17] VITALS: BP 150/68
[2019-09-17] MEDS: PIPERACILLIN/TAZO 2.25 GM 50 ML IV SCH ×3 (02:30→17:23)
[2019-09-17 04:00] VITALS: BP 144/69
[2019-09-17] MEDS ORDERED: LEVOTHYROXINE SODIUM 50 MCG TAB PO SCH (06:00)
[2019-09-17 06:17] LABS: BASOPHILS % 0.6 % (0.0-1.0); EOSINOPHILS # (AUTO) 0.2 (0.0-0.4); EOSINOPHILS % 3.3 % (0.0-6.0); HEMOGLOBIN 9.4 g/dL (14.0-18.0); LYMPHOCYTES # (AUTO) 0.7 (1.0-3.2); MEAN CORPUSCULAR HEMOGLOBIN 25.5 pg (28-32); MEAN CORPUSCULAR HGB CONC 31.3 g/dL (31-35); MEAN CORPUSCULAR VOLUME 81.5 fL (81-99); MONOCYTES # (AUTO) 0.9 (0.2-0.8); NEUTROPHILS # (AUTO) 4.2 (2.1-6.9); NEUTROPHILS % 63.9 % (38.7-80.0); PLATELET COUNT 163 x10e3/uL (140-360); RED BLOOD COUNT 3.68 x10e6/uL (4.3-5.7); RED CELL DISTRIBUTION WIDTH 16.3 % (11.7-14.4)
[2019-09-17 06:37] LABS: ALANINE AMINOTRANSFERASE 28 IU/L (0-55); ALBUMIN/GLOBULIN RATIO 0.6 (0.8-2.0); ALKALINE PHOSPHATASE 156 IU/L (40-150); ANION GAP 13.4 mmol/L (8-16); BLOOD UREA NITROGEN 12 mg/dL (7-26); BUN/CREATININE RATIO 15 (6-25); CALCIUM 8.3 mg/dL (8.4-10.2); CARBON DIOXIDE 22 mmol/L (22-29); CHLORIDE 99 mmol/L (98-107); CREATININE, SERUM 0.81 mg/dL (0.72-1.25); EST GLOMERULAR FILTRATION RATE > 60 ML/MIN (60-); GLUCOSE 96 mg/dL (74-118); POTASSIUM 3.4 mmol/L (3.5-5.1); SODIUM 131 mmol/L (136-145)
--- NOTE | 2019-09-17 07:00 | NUR ---
BEDSIDE SHIFT REPORT RECEIVED FROM THE DELIVERY RECRUITER RN. EDUCATED PT ABOUT FALL PRECAUTIONS. CALL LIGHT WITH IN EASY REACH. INSTRUCTED PT TO USE CALL LIGHT FOR ALL THE NEEDS. PT VERBALIZED UNDERSTANDING. BED IS LOW AND LOCKED. SIDE RAILS X2. BED ALARM IS ON. PT DENIES NEEDS AT THIS TIME.
[2019-09-17 07:13] LABS: EOSINOPHILS % (MANUAL) 3 % (0-7); LYMPHOCYTES % (MANUAL) 9 % (19-48); METAMYELOCYTES % (MANUAL) 3 % (0-0); MONOCYTES % (MANUAL) 7 % (3.4-9.0); NEUTROPHILS % (MANUAL) 78 % (40-74)
[2019-09-17 07:14] LABS: PLATELET ESTIMATE ADEQUATE; PLATELET MORPHOLOGY COMMENT NORMAL; RBC MORPHOLOGY COMMENT NORMAL
[2019-09-17 07:58] VITALS: BP 142/68
[2019-09-17] MEDS: ASPIRIN 81 MG CHEW TAB PO SCH (09:37)
[2019-09-17] MEDS: TAMSULOSIN HCL 0.4 MG CAP PO SCH ×2 (09:38→17:23)
[2019-09-17] MEDS: FERROUS SULFATE 325 MG TAB PO SCH (09:38)
[2019-09-17] MEDS: ASCORBIC ACID 500 MG TAB PO SCH (09:38)
[2019-09-17] MEDS: POTASSIUM CHLORIDE 20 MEQ TAB CR PO SCH (09:39)
[2019-09-17] MEDS: FUROSEMIDE INJ 10 MG/ML 2 ML VIAL IV SCH (09:39)
[2019-09-17 09:53] VITALS: BP 142/68
[2019-09-17] MEDS: VENLAFAXINE HCL 75 MG TAB PO SCH (10:00)
[2019-09-17 12:11] VITALS: BP 154/73
[2019-09-17] MEDS ORDERED: POTASSIUM CHLORIDE 20 MEQ TAB CR PO ONE (12:30)
--- NOTE | 2019-09-17 13:28 | NUR ---
Nutrition Screen Note RD Recommendation for Physician: Continue diet as ordered Plan of Care: RD following, monitoring for tolerance and adequacy Nutrition reason for involvement: LOS Primary Diagnose(s):Renal failure, hypoglycemia, hyponatremia, PMH:CHF, Colon resection,large bowel obstruction Ht:70 in Wt:142.19lb BMI:20.4 kg/m2 IBW:166lb +/-10% RD Assessment: (09/17/19) Chart reviewed. Labs and meds reviewed. Initial encounter with patient. Pt states that his appetite is improving. Pt denies any difficulty chewing or swallowing, nor has any nausea or vomiting. Pt denies any known food allergies. Current Diet: Cardiac diet Malnutrition Evaluation 09/17/19) The patient does not meet criteria for a specified degree of malnutrition at this time. Will re-evaluate at follow-up as appropriate. Diet Education Needs Assessment: Diet education not indicated. Nutrition Care Level: Low Signed: Rudolph Colin RD, LD, [facility]
--- NOTE | 2019-09-17 14:25 | Progress Note ---
DATE: SUBJECTIVE: The patient was transferred out of the intensive care unit yesterday. He is eager to go home. He has home health arranged. PHYSICAL EXAMINATION: VITAL SIGNS: Stable. HEENT: Shows no facial swelling or erythema. CARDIAC: Reveals regular rate and rhythm with normal S1 and S2. LUNGS: Auscultation of lungs reveals clear breath sounds bilaterally. There is no wheezing. ABDOMEN: Soft and nontender. There is no rebound or guarding. EXTREMITIES: There is no leg edema. IMPRESSION: 1. [id number] systolic congestive heart failure. 2. Acute renal failure. 3. Subacute cerebrovascular accident. 4. Prostatic hypertrophy with urinary retention. PLAN: 1. The patient will be discharged home with a Waterman and will follow up with Urology. 2. Complete antibiotics. 3. Continue current cardiac regimen. Singh Ellington MD [facility]/CORNELIO /[id number]
--- NOTE | 2019-09-17 14:40 | Progress Note ---
DATE: 09/17/2019 SUBJECTIVE: Followed for acute kidney injury, which is resolved now. The patient's sodium is also low, but it is starting to come up after patient is being diuresed. Sodium is 131 today, potassium 3.4. No nausea, no vomiting, no shortness of breath. The patient's edema is improving also. OBJECTIVE: VITAL SIGNS: Noted are stable. LUNGS: Clear to auscultation bilaterally. CARDIOVASCULAR: S1, S2. No rub. ABDOMEN: Soft, nontender. EXTREMITIES: 1+ edema. LABORATORY DATA: Have been reviewed. Potassium 3.4, sodium 131, creatinine is 0.8. IMPRESSION AND PLAN: 1. Acute kidney injury, resolved, off IV fluids. 2. Hypertension, stable. 3. Hyponatremia, likely secondary to volume excess. Agree with IV Lasix 20 mg daily. Sodium level is coming up appropriately. 4. Hypokalemia already on 40 mEq of p.o. potassium daily. We will give additional 20 mEq p.o. x1 now and recheck labs again on Thursday as well as a magnesium level. Christiano Fitzgerald MD /MODL /[id number]
[2019-09-17 16:03] VITALS: BP 134/69
[2019-09-17] MEDS: ENOXAPARIN 30 MG/0.3 ML SYR SC SCH (17:23)
--- NOTE | 2019-09-17 18:00 | NUR ---
D/C PT PER SOURAV BLOUNT AND JELLY. D/C WITH FERNANDES PER DR. BENJAMIN.
[2019-09-17] MEDS ORDERED: FINASTERIDE5 MG PO (18:06)
[2019-09-17] MEDS ORDERED: ASPIRIN325 MG PO (18:06)
[2019-09-17] MEDS ORDERED: LEVAQUIN500 MG PO (18:07)
--- NOTE | 2019-09-17 18:25 | NUR ---
LEG BAND PLACED ON THE PT. FERNANDES CARE TEACHING GIVEN PER THE INSTRUCTION BY DR. BENJAMIN. PT AND AT BEDSIDE VERBALIZED UNDERSTANDING. DENIED FURTHER NEEDS.
--- NOTE | 2019-09-17 18:42 | NUR ---
PT DISCHARGED HOME SAFELY WITH HIS . PT ESCORTED VIA WHEEL CHAIR TO THE PRIVATE AUTO AT THE FRONT ENTRANCE. TELE AND IV REMOVED. TIP INTACT. DRESSING APPLIED. D/C WITH FERNANDES PER DR. BENJAMIN. FERNANDES CARE EDUCATION GIVEN. PT AND AT BEDSIDE VERBALIZED UNDERSTANDING. PT DENIED FURTHER NEEDS.
--- NOTE | 2019-09-18 01:39 | Discharge Summary ---
FINAL DISCHARGE DIAGNOSES: 1. Acute kidney injury secondary to urinary obstruction due to benign prostatic hypertrophy and possibly neurogenic bladder, status post Waterman catheter placement-follow up with Urology as an outpatient. 2. Acute cerebrovascular accident seen on imaging studies-evaluated by Neurology. Continue with anti-platelet therapy as well as statin. 3. Anemia of chronic disease. 4. Chronic systolic heart failure with an ejection fraction of 30%. 5. Hyponatremia, resolved. 6. Elevated PSA-outpatient followup with Urology. 7. Acute kidney injury-resolved. 8. Healing of a subacute fracture of the left inferior pubic rami. 9. Hyponatremia. CONSULTANTS: We had Urology, Neurology, Pulmonary, Pain Management, and Nephrology. VITAL SIGNS: Temperature 98.6, pulse 87, respiratory rate is 20, blood pressure 134/69. Pulse ox 100% on room air. LABORATORY FINDINGS: Show white count is 6.5, hemoglobin 9.4, hematocrit is 30, and platelets of 163. Chemistry; sodium 131, potassium 3.4, chloride 99, bicarb 20, anion gap of 13, BUN is 12, creatinine 0.81, glucose 96, calcium is 8.3. LFTs were normal. Ammonia level was 25. Troponins were all negative. Albumin was 2. LDL was 43. Urinalysis were negative. Hepatitis panel was negative. MICROBIOLOGY: Blood cultures were negative. Urine cultures were negative. IMAGING STUDIES: Chest x-ray, low lung volumes, some possible interstitial edema. CT brain age-indeterminate likely subacute ischemic infarct in the right parietal lobe without associated mass effect, hemorrhagic component, or midline shift. There are some stable mild chronic microvascular ischemic changes. CT abdomen and pelvis shows limited evaluation secondary to motion, but there is possibly acute mildly displaced fractures of the right inferior pubic rami and left superior pubic rami, appears subacute healing fracture of the left inferior pubic rami. There is some air-filled distention of the colon, but resolved. There is some bladder distention. Slightly interval decrease in the size of the pelvic sidewall, lymphadenopathy. Needs outpatient followup. Pelvic x-ray, there is a healing subacute fracture of the inferior pubic rami. No radiographic correlate to the possible right inferior pubic rami fracture noted on the same day. There is a periosteal reaction in the left superior pubic rami acetabulum, which will reflect healing fracture. No evidence of acute displaced fracture at this location. Left total hip arthroplasty with intact hardware. Moderate right hip degenerative changes. Renal ultrasound was found to be negative. Chest x-ray, some mild interstitial pulmonary edema. Carotid ultrasound was found to be no evidence of hemodynamically significant stenosis in the bilateral internal carotids. Brain MRI, no acute intracranial abnormalities. There is a subacute to chronic infarct along the right postcentral gyrus. No significant mass effect or hemorrhagic conversion. Mild supratentorial chronic microvascular ischemic change. Mild generalized cerebral volume loss. HOSPITAL COURSE: A 64-year-old male with history of systolic congestive heart failure with an EF of 30% to 35%, was hospitalized back in April due to hyponatremia and large bowel obstruction, came into the ED after he was found to have underlying metabolic encephalopathy and low blood pressure readings. While here, the patient was admitted to the ICU by Pulmonary Critical Care. The patient was volume resuscitated. Nephrology was consulted for management of electrolytes abnormality. The patient came in with a sodium of 122 and corrected appropriately by Nephrology. Electrolytes were replaced accordingly by Nephrology. As per Pulmonary Critical Care, the patient's blood pressure maintained stable and he was back to normal baseline. In relation to his encephalopathy after further investigation, the patient had imaging studies consistent with acute CVA, prompting a Neurology consultation. MRI of the brain confirmed acute CVA. Carotid ultrasound showed no evidence of any stenosis. The patient apparently takes aspirin 81 mg daily as well as Plavix 75 mg daily, and he reports he is very compliant. On discharge, the patient had an increased dose of aspirin to 325 mg daily as well as oral Plavix at 75 mg daily as well as high-dose statins. The patient was cleared for discharge by Neurology as well. The patient also had underlying urinary retention and elevated PSA, prompting Urology consultation for Dr. Chiu. As per Dr. Chiu's note, the patient is to continue with the Waterman catheter and outpatient followup for urodynamic studies as well as PSA evaluation. Pain Management was consulted for pain control as well. On discharge, the patient was doing well, back to normal baseline. He also had some underlying mild elevation of LFTs prompting GI consultation. His LFTs improved throughout the hospital course. No further workup was needed by GI, Nephrology, and Pulmonary. In relation to Neurology, he was diagnosed with CVA and cleared for discharge. Cardiology was consulted as well, but the patient had normal troponins and he was treated for underlying his heart failure and continued on cardioprotective medications. No further workup needed by Cardiology. Dr. Galaviz from [facility] was consulted as well, but the patient refused to go to any kind of rehab services or residential facility. The patient was on broad-spectrum IV antibiotics while here in the hospital stay on initial admission, but all cultures were found to be negative. On discharge, the patient was cleared for discharge by all consultants. There was some evidence on imaging studies to show some pubic rami fractures, that was described above under imaging tab. On the day of discharge, vital signs were stable, labs reviewed and stable. The patient is seen and evaluated and examined thoroughly on the day of discharge. No other complaints. The patient verbalized understanding and agreed to plan of care to follow up accordingly as an outpatient with the primary care physician in 1 week and the rest of the consults described above in about 2 weeks' time. MEDICATIONS: See med reconciliation form. DISPOSITION: Home. CONDITION: Stable. DIET: Heart healthy. In the event of any worsening symptoms, the patient was advised to come back to the ED for further evaluation. Discharge summary took greater than 35 minutes. Once again, the patient refused to go to inpatient rehab or residential facility. Instead, the patient wants to go home with home PT and OT, which was arranged. The patient was cleared for discharge by all consultants. MD FERNANDO George/[facility] /[id number]
== END 2019-09-17 18:42 | disposition home health service (06) | DRG 871 ==
LOC: ER 12:14 → ERHOLD 15:12 → MED/SURG3 16:00 → IMCU 17:30 → ICU 19:36 → MED/SURG 09-16 17:29
PROVIDERS: ADMIT Internal Medicine; ATTEND Internal Medicine
DX: A41.9 Sepsis, unspecified organism (principal); I63.9 Cerebral infarction, unspecified; I50.23 Acute on chronic systolic (congestive) heart failure; G93.41 Metabolic encephalopathy; N39.0 Urinary tract infection, site not specified; N17.9 Acute kidney failure, unspecified; E87.1 Hypo-osmolality and hyponatremia; E87.2 Acidosis; N13.8 Other obstructive and reflux uropathy; G40.802 Other epilepsy, not intractable, without status epilepticus; E03.9 Hypothyroidism, unspecified; I11.0 Hypertensive heart disease with heart failure; E87.5 Hyperkalemia; D63.1 Anemia in chronic kidney disease; N40.1 Benign prostatic hyperplasia with lower urinary tract symptoms; D50.0 Iron deficiency anemia secondary to blood loss (chronic); R33.8 Other retention of urine; N50.0 Atrophy of testis; E83.51 Hypocalcemia; Z86.73 Personal history of transient ischemic attack (TIA), and cerebral infarction without residual deficits; N31.9 Neuromuscular dysfunction of bladder, unspecified; S32.502D Unspecified fracture of left pubis, subsequent encounter for fracture with routine healing; R59.1 Generalized enlarged lymph nodes; Z95.5 Presence of coronary angioplasty implant and graft; K52.9 Noninfective gastroenteritis and colitis, unspecified; I25.2 Old myocardial infarction
CPT/HCPCS: 36415; 70450; 70551; 71045; 72170; 74176; 76770; 80048; 80053; 80061; 81001; 82140; 82550; 82553; 82948; 83036; 83605; 83735; 83935; 84152; 84300; 84484; 85025; 87040; 87086; 93005; 93306; 93880; 94640; 99284; J0610; J1630; J1650; J1817; J1940; J2060; J2543; J3370; J7030; J7050; J7070; J7799

== ENCOUNTER 2021-08-14 22:46 | Emergency (ER) | payer MEDICARE ==
[~2021-08-14] VITALS: Ht 177.8 cm; Wt 64.4 kg
[~2021-08-14 22:46] MED LIST changes: +ASPIRIN325 MG PO; +FINASTERIDE5 MG PO; +LEVAQUIN500 MG PO
[2021-08-15] MEDS ORDERED: SODIUM CHLORIDE 0.9% 1000ML 1,000 ML IV STA (00:03)
[2021-08-15 01:01] LABS: BASOPHILS % 0.3 % (0.0-1.0); EOSINOPHILS # (AUTO) 0.2 (0.0-0.4); EOSINOPHILS % 1.6 % (0.0-6.0); HEMATOCRIT 41.5 % (38.2-49.6); LYMPHOCYTES # (AUTO) 1.5 (1.0-3.2); LYMPHOCYTES % 15.3 % (18.0-39.1); MEAN CORPUSCULAR HEMOGLOBIN 26.7 pg (28-32); MEAN CORPUSCULAR HGB CONC 31.3 g/dL (31-35); MEAN CORPUSCULAR VOLUME 85.2 fL (81-99); MONOCYTES # (AUTO) 0.4 (0.2-0.8); MONOCYTES % 4.2 % (4.4-11.3); NEUTROPHILS # (AUTO) 7.7 (2.1-6.9); PLATELET COUNT 322 x10e3/uL (140-360); RED BLOOD COUNT 4.87 x10e6/uL (4.3-5.7); RED CELL DISTRIBUTION WIDTH 16.7 % (11.7-14.4)
[2021-08-15 01:20] LABS: ALBUMIN 3.7 g/dL (3.5-5.0); ALBUMIN/GLOBULIN RATIO 0.9 (0.8-2.0); ANION GAP 15.7 mmol/L (8-16); CALCIUM 9.3 mg/dL (8.4-10.2); CREATININE, SERUM 0.94 mg/dL (0.72-1.25); POTASSIUM 3.7 mmol/L (3.5-5.1)
[2021-08-15 01:31] LABS: CREATINE KINASE MB 0.6 ng/mL (0-5.0)
[2021-08-15 02:14] VITALS: BP 148/64
== END 2021-08-15 02:20 | disposition home or self-care (01) ==
LOC: ER 23:30
DX: R42 Dizziness and giddiness (principal); T39.1X5A Adverse effect of 4-Aminophenol derivatives, initial encounter; F12.10 Cannabis abuse, uncomplicated; Z96.641 Presence of right artificial hip joint; Z96.651 Presence of right artificial knee joint
CPT/HCPCS: 36415; 70450; 71045; 80053; 82550; 82553; 83880; 84484; 85025; 93005; 99284; J7030